=== PATIENT | female | born 1935 | race Caucasian/White ===

== ENCOUNTER → 2017-08-15 09:21 | Outpatient (CLI) | payer MEDICARE, OTHER, SELFPAY ==
[2017-08-15 12:10] LABS: Absolute Lymphocyte Count 2.13 X10^3/ul (0.83-4.51); Absolute Neutrophil Count 5.7 X10^3/uL (2.0-7.7); Basophil# 0.03 X10^3/uL; Basophil% 0.4 % (0-1); Eosinophil# 0.09 X10^3/uL; Eosinophils% 1.1 % (0-5); Hematocrit 38.6 % (37-47); Hemoglobin 11.9 g/dl (12.0-15.0); Lymphocyte # 2.13 X10^3/ul (4.0); Lymphocyte % 24.9 % (19-41); Mean Corp Hgb Conc 30.8 g/gl (32-36); Mean Corpuscular Hgb 26.7 pg (27.0-32.0); Mean Corpuscular Volume 86.7 fL (81-99); Mean Platelet Vol. 9.2 fl (6.2-12.0); Monocyte# 0.64 X10^3/uL; Monocyte% 7.5 % (0-10); Neutrophil # 5.67 X10^3/uL (2.7-7.7); Platelet Count 262 K/mm3 (150-450); RBC Distribution Width CV 13.9 % (11.6-14.6); RBC Distribution Width SD 44.1 fl (35.1-43.9); Red Blood Count 4.45 M/mm3 (4.2-5.4); White Blood Count 8.6 K/mm3 (4.4-11.0)
[2017-08-15 12:11] LABS: POSITIVE COUNT NO; POSITIVE DIFFERENTIAL NO; POSITIVE MORPHOLOGY NO
[2017-08-15 12:13] LABS: Erythrocyte Sedimentation Rate 32 mm/hr (0-30)
[2017-08-16 11:24] LABS: Carcinoembryonic Antigen 2.8 ng/mL (0.0-4.7)
== END ==
PROVIDERS: Family Provider Family Medicine; PCP Family Medicine; Visit Provider Surgery
DX: C18.9 Malignant neoplasm of colon, unspecified (principal)
CPT/HCPCS: 36415; 82378; 85025; 85652

== ENCOUNTER 2017-09-03 05:49 | Day surgery (SDC) | payer MEDICARE, OTHER, SELFPAY ==
--- NOTE | 2017-09-03 | COLBX_PTH ---
PATIENT: MUNDO LOVE LOC: EN U#:[id number] AGE/SX: 81/F ROOM: RE09/03/[address]: Dr. Davi Oneill MD : [id number] BED: DIS: 09/03/2017 SPEC #: [id number] RECD: 09/03/17 11:04 STATUS: AMA MARK #: [id number] JOEY: 09/03/17 00:[address]: Davi Oneill DEPT: SURGICAL PATHOLOGY RECD BY: Tad Duenas ENTERED: 09/03/17 12:47 SP TYPE: COLON BX ISABEL DR: Dr. Rey Oneill III, MD Tissues: A - Transverse colon B - Sigmoid colon biopsy Procedures: Surgery Specimen Level IV HEADER OPERATION: Colonoscopy with biopsy PRE-OP DIAGNOSIS: Follow up sigmoid colectomy, history of colon cancer TISSUE SUBMITTED: A. Cold snare distal transverse, B. Biopsy anastomosis site MICROSCOPIC DIAGNOSIS A. Distal transverse colon, biopsy: Hyperplastic polyp. B. Anastomotic site, biopsy: Granulation with associated acute and chronic inflammation. Fragment of colonic mucosa with mild architectural change. No evidence of malignancy. AM:robert 09/04/17 MICROSCOPIC DESCRIPTION Slides are reviewed. GROSS DESCRIPTION A - Received in fixative is one container labeled with the patient's name and designated distal transverse colon. The specimen consists of one irregular fragment of light kingsley soft tissue that measures 0.4 x 0.2 x 0.1 cm. The specimen is totally submitted in one cassette. B - Received in fixative is one container labeled with the patient's name and designated biopsy, anastomosis site. The specimen consists of multiple irregular fragments of light kingsley soft tissue that in aggregate measure 1 x 0.5 x 0.1 cm. The specimen is totally submitted in one cassette. / SJ:robert 09/03/17 TC:2 CPT: 10409 x2
[2017-09-03 06:33] VITALS: BP 140/65; PULSE 73; RESP 16; TEMP 37.6; O2SAT 97; BMI 25.0
--- NOTE | 2017-09-03 08:04 | PCM.OPRPT ---
Problem List (1) History of colon cancer Status: Acute Report of Operation Date of Procedure: 09/03/17 Pre-Operative Diagnosis: Personal history of distal sigmoid colon cancer Post-Operative Diagnosis: Sessile polyp of the distal transverse colon. Widely patent colorectal anastomosis with granulation tissue Surgery/Procedure Performed:: Colonoscopy with cold snare distal transverse polypectomy. Colonoscopy with cold forcep colorectal anastomotic tissue biopsy Description of Surgical Findings:: Timeout and informed consent was obtained. 81-year-old female was taken to the endoscopy suite. She was placed in the left lateral position. Throughout the procedure she received a total of 75 mg of Demerol and 2.5 mg of Versed is intravenous sedation. Digital rectal exam performed. Normal anal tone. No mass lesions. Flexible colonoscope inserted the rectum advanced through the sigmoid colon foreshortened descending colon transverse colon with some minimal transabdominal pressure is advanced to the cecum. Bowel prep was good there was still some liquid stool that could be readily aspirated. The cecum ileocecal valve area was nicely achieved as the scope was carefully withdrawn from the cecum hepatic flexure. The scope actually was retroflexed within the ascending colon for better visualization. Scope was withdrawn to the transverse colon the distal first colon a small 6 mm sessile benign-appearing polyp was identified. Because of the angulation a good flow photograph could not be achieved however I was able to get a cold snare around this and resected. Specimen was received through the suction. Hemostasis was intact. The scope was further withdrawn through the remainder of the descending colon which was rather straight. No mass lesions. At 10 cm the stapled colorectal anastomosis was identified. Some granulation tissue appear to be present. I did biopsy the granulation tissue and then I did place a hemostatic clip at that spot. There was no tissue that appear to be malignant. That specimen of course sent for analysis. The scope was retroflexed within the rectum anorectal verge inspected minimal hemorrhoidal changes. Scope was placed back in antegrade viewing position. Excess fluid and air was aspirated free the procedure was completed with the patient tolerating it well. Impression Diminutive sessile polyp of the distal transverse colon. Patent colorectal anastomosis albeit with suspected granulation tissue. Pathology on the polyp and suspected granulation tissue pending. The patient will be notified of results as they are available. Follow-up colonoscopy would be recommended in no greater than 3 years. Cc: Dr. Rey Oneill, III and Dr. Bryon Purcell Procedure was initiated at 0740. Scope was inserted 0743. The cecum was reached at 0746.39. The procedure was completed at 0801. Davi Oneill M.D., F.A.C.S. Type of Anesthesia:: IV Sedation
[2017-09-03 08:09] VITALS: BP 140/65; BP 86/46; PULSE 73; RESP 16; TEMP 36.7; O2SAT 96
[2017-09-03 08:14] VITALS: BP 115/55; BP 140/65; PULSE 69; RESP 16; O2SAT 95
[2017-09-03 08:20] VITALS: BP 126/54; BP 140/65; PULSE 68; RESP 16; O2SAT 94
[2017-09-03 08:25] VITALS: BP 124/51; BP 140/65; PULSE 67; RESP 16; TEMP 36.7; O2SAT 94
[2017-09-03 08:30] VITALS: BP 140/65
== END 2017-09-03 08:55 | disposition home or self-care (01) ==
LOC: EN 05:50 → AC 05:51
PROVIDERS: Family Provider Family Medicine; PCP Family Medicine; Visit Provider Surgery
PROC: 0DJD8ZZ Inspection of Lower Intestinal Tract, Via Natural or Artificial Opening Endoscopic (ICD-10-PCS; CPT 45378; principal; 2017-09-03 06:55)
DX: K63.5 Polyp of colon (principal); K63.89 Other specified diseases of intestine; K64.9 Unspecified hemorrhoids; Z85.038 Personal history of other malignant neoplasm of large intestine; Z86.2 Personal history of diseases of the blood and blood-forming organs and certain disorders involving the immune mechanism; Z87.19 Personal history of other diseases of the digestive system; Z78.0 Asymptomatic menopausal state; Z90.49 Acquired absence of other specified parts of digestive tract
CPT/HCPCS: 45380; 45385; 88305; 99152; 99153; J7120

== ENCOUNTER 2019-02-20 08:33 | Emergency (ER) | payer MEDICARE, OTHER, SELFPAY ==
[2019-02-20 08:35] VITALS: BP 169/104; PULSE 85; RESP 16; TEMP 36.1; O2SAT 95; BMI 25.4
--- NOTE | 2019-02-20 08:56 | RAD_ITS ---
STUDY: X-RAY - UNILATERAL RIBS ( RIGHT ) WITH CHEST REASON FOR EXAM: Female, 83 years old. Posterior right-sided rib pain following a fall. TECHNIQUE - RIBS: 2 view(s) of the ribs. TECHNIQUE - CHEST: Single PA view of the chest. COMPARISON: Comparison is made with prior study dated August 17, 2016. FINDINGS - RIBS: Normal visualized ribs without a demonstrated fracture. FINDINGS - CHEST: Hyperinflation. Blunting of both costophrenic angles. Mild linear atelectasis and/or scarring at the lung bases. Normal size heart. Normal mediastinum and manuel. Normal visualized pulmonary arteries. There is atherosclerotic calcification of the aortic arch with tortuosity. There are diffuse degenerative changes of the visualized thoracic spine. Normal visualized ribs, clavicles, and shoulders. There is no demonstrated abnormality of the visualized soft tissue structures of the upper abdomen. RAD/Ribs Uni Min 3V w/PA Chest IMPRESSION: RIBS: Normal x-ray examination of the ribs. CHEST: Blunting of both costophrenic angles with mild linear atelectasis and/or scarring at the lung bases. Electronically Signed: Kermit Singh, at 9:34 EDT , Service support ,
--- NOTE | 2019-02-20 09:12 | ED.VIS.FALL ---
History of Present Illness Informant: Patient, Family Limited: Dementia Occurred: Weeks - 1 week ago Mechanism/Context: Same level fall, Trip, Slip. Negative for: Cannot recall fall, Prodromal, Dizziness, Vertigo, Lightheadedness, Near-syncope Usually ambulates: Without assistance Location: right ribs Quality of Pain: Sharp Current Severity: Moderate Maximum Severity: Severe Worsened by: movement, coughing Relieved by: ibuprofen Associated Symptoms: Negative for: Parasthesias, Weakness, Loss of function, Inability to ambulate, Loss of consciousness, Amnesia Narrative: 83-year-old female presents with right rib pain after mechanical fall that occurred 1 week ago. No prodromal symptoms. She did not hit her head or lose consciousness. She is not on blood thinners. She has had right-sided rib pain worse with movement, palpation and coughing. No fevers. No hemoptysis. No shortness of breath. No back pain. No abdominal pain. No vomiting or diarrhea. No hematuria, melena or hematochezia. Tetanus Immunization: Unknown Prior similar symptoms: No Recent Illness/Hospitalization: No <Frank Holliday - Last Filed: 02/20/19 10:05> <Toni Morin - Last Filed: 02/20/19 13:20> Chief Complaint: Back Past Medical History Prior records reviewed: Yes Past Medical History: - - colectomy Surgical History: colectomy Smoking Status: Never smoker <Frank Holliday - Last Filed: 02/20/19 10:05> <Toni Morin - Last Filed: 02/20/19 13:20> - Allergies and Home Meds Allergies/Adverse Reactions: Allergies piperacillin [From Zosyn] Allergy (Verified 08/16/17 14:44) Rash tazobactam [From Zosyn] Allergy (Verified 08/16/17 14:44) Rash Primary Care Physician: Rey Oneill III, MD [Primary Care Provider] - Review of Systems All systems negative except as indicated General: Denies: Chills, Fever Cardiovascular: Denies: Chest pain Respiratory: Denies: Dyspnea, Cough, Sputum Gastrointestinal: Denies: Abdominal pain Musculoskeletal: Reports: - - right rib pain. Denies: Neck pain, Back pain <Frank Holliday - Last Filed: 02/20/19 10:05> Physical Exam Vital Signs/Narrative: Vital Signs Temp Pulse Resp BP Pulse Ox 02/20/19 08:35 97 F L 85 16 169/104 H 95 Inital Vital Signs reviewed: Yes General: Well nourished, Well developed Head: Normocephalic, Atraumatic Eyes: Perrl, EOMI ENT: TM's clear, No hemotympanum or drainage, No trauma. Negative for: Nasal septal hematoma Neck: Nontender, Full ROM Cardiovascular: Regular rate, Regular rhythm Respiratory: No distress, CTA bilaterally, Chest tenderness - Normal inspection of the chest and ribs. No sign of trauma the skin. Some right lateral and posterior rib pain on palpation mostly around ribs 8 through 10. No step-off deformities are palpated, no crepitus is palpated, there is no CVA tenderness, abdomen is soft and nontender. Abdomen: Soft, Nontender, Nondistended, Normal bowel sounds, No masses Back: Nontender Skin: Normal color, No rash, No Trauma. Negative for: Trauma Neurological: Alert, Oriented x3, Cranial nerves II-XII grossly intact, Normal Strength, Normal Sensation Psychological: Normal affect <Frank Holliday - Last Filed: 02/20/19 10:05> Vital Signs/Narrative: Vital Signs Pulse Resp BP Pulse Ox 02/20/19 10:14 64 15 126/59 H 95 <Toni Morin - Last Filed: 02/20/19 13:20> Diagnostic/Tx/Re-eval Chest X-Ray - ED: 2 View, Read by ED Physician, Read by Radiologist, No Acute Disease - Medical Decision Making Patient was given ibuprofen for pain. A chest x-ray with a right sided rib series showed no acute abnormalities. Patient already has an incentive spirometer at home was instructed on proper use of this. Will be given a short course prescription for [place]. She will continue to use ibuprofen in between doses of hydrocodone. Return precautions to the emergency department were reviewed. Advised to have a close follow-up in the next 2 to 3 days with her family doctor. <Frank Holliday - Last Filed: 02/20/19 10:05> - Medical Decision Making I saw the patient in conjunction with physician sales and marketing assistant. She fell last night and injured her right ribs. No head or neck injuries. No loss of consciousness. She complains of continued pain in the area. Denies shortness of breath or other associated symptoms. Lungs were clear. Skin was normal. No other pertinent findings. X-rays were negative. Patient was treated with pain meds. Use incentive spirometer, she has one at home. Follow-up with primary care for recheck. <Toni Morin - Last Filed: 02/20/19 13:20> ED Disposition <Frank Holliday - Last Filed: 02/20/19 10:05> <Toni Morin - Last Filed: 02/20/19 13:20> - Plan for ED Patient: Disposition: Home or Assisted Living Diagnosis: Contusion of ribs Instructions: Rib Contusion Prescriptions: Hydrocodone Bitart/Apap 5-325 [[place] 5MG-325MG] 1 tab PO Q6H PRN PRN 3 Days #10 tab PRN Reason: Pain Prescription Printed Referrals: Rey Oneill III, MD [Primary Care Provider] -
[2019-02-20] MEDS: Ibuprofen 600 MG Tablet PO (09:20)
[2019-02-20 10:14] VITALS: BP 126/59; PULSE 64; RESP 15; O2SAT 95
== END 2019-02-20 10:21 | disposition home or self-care (01) ==
PROVIDERS: Emergency Provider Physician Assistant Medical; Family Provider Family Medicine; PCP Family Medicine
DX: S20.211A Contusion of right front wall of thorax, initial encounter (principal); W01.0XXA Fall on same level from slipping, tripping and stumbling without subsequent striking against object, initial encounter; Y93.9 Activity, unspecified; Y92.9 Unspecified place or not applicable
CPT/HCPCS: 71101; 99283

== ENCOUNTER 2019-08-23 15:26 | Emergency (ER) | payer OTHER, MEDICARE, SELFPAY ==
[2019-08-23 15:28] VITALS: BP 197/64; PULSE 86; RESP 17; TEMP 36.3; O2SAT 93; BMI 28.3
[2019-08-23 15:35] VITALS: O2SAT 94
[2019-08-23 15:49] VITALS: PULSE 77; RESP 22; O2SAT 95
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
[2019-08-23] MEDS: Morphine 4 MG/ML Syringe IV ×2 (16:02→17:46)
[2019-08-23] MEDS: Ondansetron 4 MG/2 ML Vial IV (16:02)
[2019-08-23] MEDS: 0.9% Normal Saline 1,000 ML 1000 ML IV (16:02)
[2019-08-23] MEDS: Diphth,Pertuss(Acell),Tet Vac 0.5 ML Vial IM (16:02)
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
[2019-08-23 16:13] LABS: Absolute Neutrophil Count 8.5 X10^3/uL (2.0-7.7); Basophil# 0.05 X10^3/uL; Basophil% 0.4 % (0-1); Eosinophil# 0.05 X10^3/uL; Eosinophils% 0.4 % (0-5); Hematocrit 38.5 % (37-47); Hemoglobin 12.1 g/dL (12.0-15.0); Lymphocyte % 24.5 % (19-41); Mean Corp Hgb Conc 31.4 g/dL (32-36); Mean Corpuscular Hgb 27.3 pg (27.0-32.0); Mean Corpuscular Volume 86.7 fL (81-99); Mean Platelet Vol. 9.8 fl (6.2-12.0); Monocyte# 0.77 X10^3/uL; Monocyte% 5.9 % (0-10); NRBC Flagged by Analyzer 0 % (0-5); Neutrophil # 8.52 X10^3/uL (2.7-7.7); Neutrophil % 65.1 % (47-70); Platelet Count 221 K/mm3 (150-450); RBC Distribution Width CV 13.2 % (11.6-14.6); RBC Distribution Width SD 41.5 fl (35.1-43.9); Red Blood Count 4.44 M/mm3 (4.2-5.4); White Blood Count 13.1 K/mm3 (4.4-11.0)
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
[2019-08-23 16:32] LABS: Prothrombin Time (Protime)PT. 13.4 SECONDS (11.7-14.9)
[2019-08-23 16:42] LABS: AST(SGOT) 163 U/L (15-37); Alanine Aminotransfer ALT/SGPT 104 U/L (13-56); Albumin, Serum 3.4 g/dL (3.2-5.0); Alkaline Phosphatase 97 U/L (45-117); Anion Gap 4 (5-15); BUN 22 mg/dL (7-18); BUN/Creat Ratio 22.6 RATIO (10-20); Bilirubin, Direct 0.07 mg/dL (0.00-0.30); Calcium,Total 8.8 mg/dL (8.5-10.1); Chloride 107 mmol/L (98-107); Creatinine, Serum 0.97 mg/dL (0.55-1.02); EST Glomerular Filtration Rate 58 mL/min (>60); Est Glom Filt Rate - Afr Amer 70 mL/min (>60); Estimated Creatinine Clearance 39.28 ml/min; Globulin 4.5 g/dL (2.2-4.2); Glucose 121 mg/dL (74-106); Potassium 3.7 mmol/L (3.5-5.1); Protein, Total 7.9 g/dL (6.4-8.2); Sodium Level 139 mmol/L (136-145)
[2019-08-23 17:42] VITALS: BP 181/65; PULSE 92; RESP 18; O2SAT 94
== END 2019-08-23 18:02 | disposition short-term general hospital (02) ==
PROVIDERS: Emergency Provider Physician Assistant Medical; PCP Family Medicine
DX: S16.1XXA Strain of muscle, fascia and tendon at neck level, initial encounter (principal); R55 Syncope and collapse; S09.90XA Unspecified injury of head, initial encounter; S20.212A Contusion of left front wall of thorax, initial encounter; S32.511A Fracture of superior rim of right pubis, initial encounter for closed fracture; S32.591A Other specified fracture of right pubis, initial encounter for closed fracture; S80.811A Abrasion, right lower leg, initial encounter; S81.811A Laceration without foreign body, right lower leg, initial encounter; Z23 Encounter for immunization; V43.62XA Car passenger injured in collision with other type car in traffic accident, initial encounter; Y93.9 Activity, unspecified; Y92.9 Unspecified place or not applicable; F03.90 Unspecified dementia, unspecified severity, without behavioral disturbance, psychotic disturbance, mood disturbance, and anxiety; Z85.038 Personal history of other malignant neoplasm of large intestine
CPT/HCPCS: 70450; 71260; 72125; 73502; 73560; 74177; 80048; 80076; 85025; 85610; 90715; 93005; 96361; 96374; 96375; 96376; 99285; J7030; Q9967; A4216; J2405

== ENCOUNTER → 2020-09-26 14:33 | Outpatient (CLI) | payer MEDICARE, OTHER, SELFPAY ==
[2020-09-26 14:10] VITALS: BMI 23.4
[2020-09-26 14:55] LABS: Hematocrit 40.4 % (37-47); Hemoglobin 12.6 g/dL (12.0-15.0); Mean Corp Hgb Conc 31.2 g/dL (32-36); Mean Corpuscular Hgb 27.3 pg (27.0-32.0); Mean Corpuscular Volume 87.6 fL (81-99); Mean Platelet Vol. 9.1 fl (6.2-12.0); Platelet Count 258 K/mm3 (150-450); RBC Distribution Width CV 13.3 % (11.6-14.6); RBC Distribution Width SD 42.9 fl (35.1-43.9); Red Blood Count 4.61 M/mm3 (4.2-5.4); White Blood Count 9.4 K/mm3 (4.4-11.0)
[2020-09-26 16:03] LABS: ALB/GLOB Ratio 0.7 RATIO (0.9-2.4); AST(SGOT) 11 U/L (15-37); Alanine Aminotransfer ALT/SGPT 20 U/L (13-56); Albumin, Serum 3.6 g/dL (3.2-5.0); Alkaline Phosphatase 93 U/L (45-117); Anion Gap 6 (5-15); BUN 24 mg/dL (7-18); BUN/Creat Ratio 25.3 RATIO (10-20); Calcium,Total 9.1 mg/dL (8.5-10.1); Chloride 104 mmol/L (98-107); Creatinine, Serum 0.95 mg/dL (0.55-1.02); EST Glomerular Filtration Rate 60 mL/min (>60); Est Glom Filt Rate - Afr Amer 72 mL/min (>60); Globulin 5.4 g/dL (2.2-4.2); Glucose 103 mg/dL (74-106); Potassium 3.6 mmol/L (3.5-5.1); Sodium Level 138 mmol/L (136-145)
[2020-09-26 22:49] LABS: Xtra Tube EP Lab EXTRA TUBE
[2020-09-28 12:18] LABS: Carcinoembryonic Antigen 3.4 ng/mL (0.0-4.7)
== END ==
PROVIDERS: PCP Family Medicine; Visit Provider Surgery
DX: Z85.038 Personal history of other malignant neoplasm of large intestine (principal)
CPT/HCPCS: 36415; 80053; 82378; 85027

== ENCOUNTER 2020-10-04 07:35 | Day surgery (SDC) | payer MEDICARE, OTHER, SELFPAY ==
[2020-09-26 14:10] VITALS: BMI 23.4
--- NOTE | 2020-10-04 | COLBX_PTH ---
PATIENT: MUNDO LOVE LOC: EN U#:[id number] AGE/SX: 84/F ROOM: RE10/04/[address]: Dr. Davi Oneill MD : 1935 BED: DIS: 10/04/2020 SPEC #: [id number] RECD: 10/04/20 12:37 STATUS: AMA REKb #: [id number] JOEY: 10/04/20 00:[address]: Davi Oneill DEPT: SURGICAL PATHOLOGY RECD BY: Parminder Oliver ENTERED: 10/04/20 12:37 SP TYPE: COLON BX OTHR DR: Dr. Rey Oneill III, MD Tissues: COLON BIOPSY Procedures: Surgery Specimen Level IV HEADER OPERATION: Colonoscopy PRE-OP DIAGNOSIS: History colon CA TISSUE SUBMITTED: Hepatic flexure polyp biopsy MICROSCOPIC DIAGNOSIS Hepatic flexure polyp, biopsy: Hyperplastic polyp. SJ:robert 10/05/2020 MICROSCOPIC DESCRIPTION Slides are reviewed. GROSS DESCRIPTION Received in fixative is one container labeled with the patient's name and designated hepatic flexure polyp biopsy. The specimen consists of one irregular fragment of light kingsley soft tissue that measures 0.3 x 0.3 x 0.1 cm. The specimen is totally submitted in one cassette. The specimen is totally submitted in one cassette. / SJ:rg 10/04/20 TC:1 CPT: 91601
--- NOTE | 2020-10-04 09:28 | PCM.HP.BLA ---
History and Physical Date of Admission: 10/04/20 Intake Visit Reasons: CSCOPE Chief Complaint: colonoscopy, hx colon ca 2017 Insurance Agency Manager Required: No Is patient in pain?: No Allergies erythromycin base Allergy (Mild, Verified 09/26/20 14:11) rash piperacillin [From Zosyn] Allergy (Verified 08/23/19 15:28) Rash tazobactam [From Zosyn] Allergy (Verified 08/23/19 15:28) Rash Medications Cholecalciferol (Vitamin D3) [Vitamin D3] 5,000 unit PO DAILY 08/23/19 [History Confirmed 09/26/20] Is last menstrual period known: No Post menopausal: Yes Patient : No PFSH Medical History (Updated 09/26/20 @ 14:09 by Wendy Quiñones) Chronic anemia (Acute) Colon cancer (Resolved) Surgical History S/P colectomy (Acute) S/P colonoscopy (Acute) Family History Mother No problems noted. Social History (Updated 09/26/20 @ 14:[address] Davi Oneill MD) Smoking Status: Never smoker HPI HPI HPI: MUNDO LOVE, is a 84 F who presents to the office today for surgical follow-up of sigmoid colon cancer. The patient presents with her today. He states that although Dr. Rey Oneill III is her primary care physician that she has not seen a physician since her most recent visit with me 3 years ago. She apparently has good appetite. She denies any change of bowel habits however her memory is suspect. My previous notes of 2018 reflect the following HPI: MUNDO LOVE, is a 81 F who presents to the office today for surgical follow-up status post laparoscopic sigmoid colectomy/low anterior resection for colon cancer. On August 16, 2016 I performed a very difficult lab scopic left colectomy for sigmoid colon cancer. Postoperative she has developed a partial small bowel obstruction. She also then presented with thrombosed hemorrhoids. There was concern that he had a microperforation at the anastomosis. She had chronic baseline dementia that worsened. Her overall recovery was slow and challenging. She did not require reoperation for small bowel obstruction nor did she require reoperation for the suspected microperforation at the anastomotic line. She had a significant amount of weight loss. She had persistent diarrhea. She was treated with Lomotil. She now presents back and she has made improvement on absolutely every single account. She is regained her 15 pound weight loss. Her current white blood cell count is normal at 8.6 with a new hemoglobin improved to 11.9 and hematocrit of 38.6. She has a current sed rate of 32 with high normal being 30. Prior to that her sed rate was most recently at 55 demonstrating improvement. As of August 15 her current CEA level was 2.8. The family reminds me that the patient was seen by Dr. Bryon Purcell postoperatively and chemotherapy was recommended but the family members declined. Her most recent procedure was October 03, 2016. At that time the procedure was a flexible sigmoidoscopy examination under anesthesia proctoscopy attempted abscess drainage with internal hemorrhoidectomy and transvaginal ultrasound. I did not see a distinct abscess. The colorectal anastomosis at that point was widely patent. Her primary operation August 16, 2016 was a laparoscopic low anterior resection. I felt that I had a good initial resection but then there appeared to be some discoloration of the distal bowel and so I had to do a re-resection. Her final pathology included a 5 x 3.5 x 2 cm rectosigmoid well-differentiated low-grade adenocarcinoma. Margins were clear. Lymph vascular invasion was not identified. 1 out of 21 lymph nodes were involved. HPI HPI HPI: MUNDO LOVE, is a 84 F who presents to the office today for ROS General General: Yes colon cancer; no weight change, appetite, fatigue, breast cancer or weakness HEENT HEENT: No difficulty swallowing, eye injury, eye surgery, swollen glands or hoarseness Endo Endocrine: No thyroid disease, diabetes mellitus, thyroid cancer, Hair loss, heat intolerance or cold intolerance Musc Musculoskeletal: Yes arthritis; no back problems, rheumatoid arthritis, gout or joint pain Cardio Cardiovascular: No murmur, pacemaker, heart disease, atrial fibrillation, high blood pressure, heart attack, heart stent, palpitations, shortness of breat with exertion or chest pain Psych Psychiatric: No depression, anxiety or hearing voices Resp Respiratory: No shortness of breath, No sleep apnea, No cough, No COPD, No asthma, No emphysema, No wheezing Gastro Gastrointestinal: No abdominal pain, No nausea or vomiting, No diarrhea, No constipation, No blood in stool, No acid reflux, No hemorrhoids, No ulcers, No gallbladder problem, No black,tarry stools Stephen Hematologic: No blood thinners, No blood disorders, No bleeding, No anemia, No blood clots Neuro Neurologic: No weakness Exam Const General: cooperative, comfortable, no acute distress Nutritional Appearance: average body habitus Orientation: alert [facility] Head: normal to inspection Neck Neck: normal visual inspection Resp Effort & Inspection: normal respiratory effort Auscultation: clear to auscultation bilaterally Cardio Rate: regular rate Heart Sounds: no murmurs GI Palpation: soft, no hepatosplenomegaly Auscultation: normal bowel sounds Extrem General: no calf tenderness Psych Affect: normal affect Assessment & Plan Problems 1. History of malignant neoplasm of colon Z85.038 Plan 84-year-old female. She frequently looks towards her to assist her with answers to questions. Otherwise she does not appear to be in acute distress. It became evident in the appointment today that the patient has not been seen by a physician for 3 years since her last appointment with me. She did not seek initial follow-up with Dr. Bryon Purcell hematology oncology either according to the . In any case they are pleased with her current progress. I do recommend that we obtain routine laboratory today including a CEA level. I do propose for her a colonoscopy with possible biopsy or polypectomy as indicated. We would perform that with monitored anesthesia care. She is aware of the technique, benefit, risk, alternatives. I appreciate the ongoing opportunity of assisting with her surgical care. Copy: Dr. Rey Oneill, III Davi Oneill M.D., F.A.C.S. Orders Orders: Colonoscopy Today Comprehensive Metabolic Profil Today Z85.038 CBC-Complete Blood Cnt No Diff Today Z85.038 Carcinoembryonic Antigen Today Z85.038 Coding Level of Care Code Off vis,est,level 2 Diagnoses History of malignant neoplasm of colon Z85.038 Pt history and physical reviewed and no changes Davi Oneill MD
[2020-10-04 09:51] VITALS: BP 115/57; BP 197/78; PULSE 67; RESP 14; TEMP 36.8; O2SAT 97
[2020-10-04 09:55] VITALS: BP 125/55; BP 197/78; PULSE 69; RESP 16; O2SAT 98
--- NOTE | 2020-10-04 09:55 | OP.COLON_ITS ---
Patient Name: Karine Vasquez Procedure Date: 10/04/2020 9:25 AM Date of : 1935 Age: 84 Procedure: Colonoscopy Indications: High risk colon cancer surveillance: Personal history of colon cancer Providers: Davi Oneill MD Referring MD: Rey Oniell Iii Medicines: See the Anesthesia note for documentation of the administered medications Patient Profile: Last Colonoscopy: 2016. Complications: No immediate complications. Procedure: Pre-Anesthesia Assessment: - Prior to the procedure, a History and Physical was performed, and patient medications and allergies were reviewed. The patient's tolerance of previous anesthesia was also reviewed. The risks and benefits of the procedure and the sedation options and risks were discussed with the patient. All questions were answered, and informed consent was obtained. Prior Anticoagulants: The patient has taken no previous anticoagulant or antiplatelet agents. ASA Grade Assessment: II - A patient with mild systemic disease. After reviewing the risks and benefits, the patient was deemed in satisfactory condition to undergo the procedure. After I obtained informed consent, the scope was passed under direct vision. Throughout the procedure, the patient's blood pressure, pulse, and oxygen saturations were monitored continuously. The Colonoscope was introduced through the anus and advanced to the cecum, identified by appendiceal orifice and ileocecal valve. The colonoscopy was performed without difficulty. The patient tolerated the procedure well. The quality of the bowel preparation was good. The ileocecal valve and the appendiceal orifice were photographed. Scope In: 9:38:43 AM Scope Withdrawal Time 0 hours 6 minutes 36 seconds Scope Out: 9:46:45 AM Total Procedure Duration Time 0 hours 8 minutes 2 seconds Findings: Hemorrhoids were found on perianal exam. A 3 mm polyp was found in the hepatic flexure. The polyp was sessile. The polyp was removed with a cold biopsy forceps. Resection and retrieval were complete. There was evidence of a prior end-to-end colo-colonic anastomosis in the distal sigmoid colon. This was patent and was characterized by healthy appearing mucosa. The exam was otherwise without abnormality. Impression: - Hemorrhoids found on perianal exam. - One 3 mm polyp at the hepatic flexure, removed with a cold biopsy forceps. Resected and retrieved. - Patent end-to-end colo-colonic anastomosis, characterized by healthy appearing mucosa. - The examination was otherwise normal. Recommendation: - Discharge patient to home. - Resume previous diet. - Continue present medications. - Repeat colonoscopy in 3 years for surveillance. - Telephone my office for pathology results in 1 week. Procedure Code(s): --- Professional --- 91975, Colonoscopy, flexible; with biopsy, single or multiple Diagnosis Code(s): --- Professional --- Z85.038, Personal history of other malignant neoplasm of large intestine K64.9, Unspecified hemorrhoids D12.3, Benign neoplasm of transverse colon (hepatic flexure or splenic flexure) Z98.0, Intestinal bypass and anastomosis status CPT copyright 2017 [employer]. All rights reserved. The codes documented in this report are preliminary and upon pre coder review may be revised to meet current compliance requirements. Davi Oneill MD 10/04/2020 9:55:35 AM This report has been signed electronically. Number of Addenda: 0 Note Initiated On: 10/04/2020 9:25 AM
--- NOTE | 2020-10-04 09:56 | OP.CCLET_ITS ---
10/04/2020 Rey Oneill [address] [place] [address] Re : Colonoscopy procedure for Karine Vasquez Dear Dr. Oneill This procedure was performed on Sunday, October 04, 2020. My impressions and recommendations are as follows: Impressions : - Hemorrhoids found on perianal exam. - One 3 mm polyp at the hepatic flexure, removed with a cold biopsy forceps. Resected and retrieved. - Patent end-to-end colo-colonic anastomosis, characterized by healthy appearing mucosa. - The examination was otherwise normal. Recommendations : - Discharge patient to home. - Resume previous diet. - Continue present medications. - Repeat colonoscopy in 3 years for surveillance. - Telephone my office for pathology results in 1 week. My findings are described in the full procedure note, which is enclosed. If I can be of further assistance, please feel free to contact me at Doctor phone number(s): Work: . Sincerely, Davi Oneill MD 10/04/2020 9:55:35 AM This report has been signed electronically.
[2020-10-04 10:00] VITALS: BP 148/67; BP 197/78; PULSE 72; RESP 16; O2SAT 98
[2020-10-04 10:05] VITALS: BP 156/62; BP 197/78; PULSE 70; RESP 16; O2SAT 99
[2020-10-04 10:10] VITALS: BP 153/60; BP 197/78; PULSE 63; RESP 16; TEMP 36.8; O2SAT 98
== END 2020-10-04 10:40 ==
LOC: EN 07:37 → AC 07:39
PROVIDERS: PCP Family Medicine; Referring Provider Family Medicine; Visit Provider Surgery
PROC: 0DJD8ZZ Inspection of Lower Intestinal Tract, Via Natural or Artificial Opening Endoscopic (ICD-10-PCS; CPT 45378; principal; 2020-10-04 08:55)
DX: K63.5 Polyp of colon (principal); Z98.0 Intestinal bypass and anastomosis status; K64.9 Unspecified hemorrhoids; Z85.038 Personal history of other malignant neoplasm of large intestine; Z87.19 Personal history of other diseases of the digestive system; Z78.0 Asymptomatic menopausal state; Z90.49 Acquired absence of other specified parts of digestive tract
CPT/HCPCS: 45380; 88305; J7120; J2405

== ENCOUNTER 2024-05-22 10:50 | Emergency (ER) | payer MEDICARE, OTHER, SELFPAY ==
[2024-05-22] VITALS (12 sets, daily range): BP systolic 113–198; BP diastolic 55–92; PULSE 65–82; RESP 17–31; TEMP 36.6; O2SAT 94–99; BMI 27.2
--- NOTE | 2024-05-22 11:16 | EKG12_ITS ---
Test Reason : STROKE TEAM Blood Pressure : */* mmHG Vent. Rate : 68 BPM Atrial Rate : 68 BPM P-R Int : 186 ms QRS Dur : 70 ms QT Int : 356 ms P-R-T Axes : 67 -1 46 degrees QTcB Int : 378 ms Normal sinus rhythm Minimal voltage criteria for LVH, may be normal variant ( R in aVL ) Nonspecific T wave abnormality Abnormal ECG Confirmed by GUME PERSAUD, CHRISTA ([id number]), sound editor CHRISTIAN العلي ([id number]) on 05/27/2024 1:31:58 P M Referred By: Confirmed By: CHRISTA DUNAWAY MD
--- NOTE | 2024-05-22 11:17 | CT_ITS ---
STUDY: CT CERVICAL SPINE WITHOUT CONTRAST REASON FOR EXAM: Female, 88 years old. Cervical pain following fall. RADIATION DOSAGE (If Supplied By Facility): CTDIvol = ( 15.12 ) mGy, DLP = ( 335.08 ) mGycm TECHNIQUE: High resolution transaxial imaging was performed without contrast material. Sagittal and coronal images were reconstructed. Individualized dose optimization techniques were used for this CT. COMPARISON: Comparison is made with prior study August 23, 2019. FINDINGS: Normal craniovertebral junction. There are degenerative changes of the anterior atlantoaxial articulation. Normal odontoid process. Normal cervical lordosis. Normal vertebral bodies and posterior osseous elements. 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 No significant stenosis seen. C3-4: Facet joint osteoarthritis and hypertrophy more prominent on the left side. No significant stenosis seen. C4-5: Marked degree of disc space narrowing. Spondylosis. Uncovertebral arthrosis and mild bilateral neural foraminal stenosis. C5-6: Marked degree of disc space narrowing. Uncovertebral arthrosis. Lateral neural foraminal stenosis worse on the right side. C6-7: Moderate degree of disc space narrowing. Facet joint osteoarthritis and hypertrophy. C7-T1: Normal endplates. Normal disc height and morphology. Normal central canal and intervertebral neuroforamina. Opacification of the right sphenoid sinus. CT/Spine Cervical without Contras IMPRESSION: Multilevel degenerative changes, as described above. Electronically Signed: Kermit Singh MD at 12:06 EST ,
[2024-05-22 11:22] LABS: Bedside Glucose 210 mg/dL (74-106)
[2024-05-22 11:23] LABS: Absolute Lymphocyte Count 1.44 X10^3/uL (0.83-4.51); Basophil# 0.05 X10^3/uL; Basophil% 0.3 % (0-1); Eosinophil# 0.01 X10^3/uL; Eosinophils% 0.1 % (0-5); Hematocrit 36.5 % (37-47); Hemoglobin 11.9 g/dL (12.0-15.0); Lymphocyte # 1.44 X10^3/ul (0.83-4.51); Lymphocyte % 9.4 % (19-41); Mean Corp Hgb Conc 32.6 g/dL (32-36); Mean Corpuscular Hgb 27.4 pg (27.0-32.0); Mean Corpuscular Volume 83.9 fL (81-99); Mean Platelet Vol. 9.1 fl (6.2-12.0); Monocyte# 0.67 X10^3/uL; Monocyte% 4.4 % (0-10); NRBC Flagged by Analyzer 0 % (0-5); Neutrophil # 12.97 X10^3/uL (2.7-7.7); Platelet Count 255 K/mm3 (150-450); RBC Distribution Width CV 14.2 % (11.6-14.6); RBC Distribution Width SD 43.5 fl (35.1-43.9); Red Blood Count 4.35 M/mm3 (4.2-5.4); White Blood Count 15.3 K/mm3 (4.4-11.0)
--- NOTE | 2024-05-22 11:32 | EDS_ITS ---
HPI <CLOVIS Calloway - Last Filed: 05/22/24 12:07> History of Present Illness Chief Complaint: Neuro S/Sx Narrative Narrative: Patient is an 88-year-old female with history of colon cancer who does not see a primary care doctor. Patient does have dementia, lives with her . This morning at 7:30 AM, the patient was found on the carpeted hallway floor. The patient had some right sided weakness, unsure of when this started. Patient was then placed on a stool in the bathroom and then fell off the stool landing on her right side. Patient does have a small laceration to her scalp as well as above her right eyebrow. The family also states that she is more confused than normal, and she seems to be weak and not normal on her right side. Denies any recent infectious processes, patient usually is ambulatory and lives independently. [facility] <CLOVIS Calloway - Last Filed: 05/22/24 12:07> [facility] Medical History (Updated 05/22/24 @ 12:07 by CLOVIS Calloway) Colon cancer Chronic anemia Home Medications ?Medication ?Instructions ?Recorded ?Last Taken ?Type NK 05/22/24 Unknown History Allergy/AdvReac Type Severity Reaction Status Date / Time erythromycin base Allergy Mild rash Verified 09/30/20 11:08 piperacillin (From Zosyn) Allergy Rash Verified 09/30/20 11:08 tazobactam (From Zosyn) Allergy Rash Verified 09/30/20 11:08 Family History Mother No problems noted. Surgical History S/P colonoscopy S/P colectomy Social History (Updated 09/26/20 @ 14:[address] Davi Oneill MD) Smoking Status: Never smoker ROS <CLOVIS Calloway - Last Filed: 05/22/24 12:07> ROS ED ROS Narrative Constitutional: Negative for fever, chills, weight loss. Positive for weakness, worsening confusion Eyes: Negative for vision loss, vision change, double vision ENT: Negative for any sore throat, ear pain, congestion Cardiovascular: Negative for any chest pain, tightness, palpitations Respiratory: Negative for any cough, sputum production, hemoptysis, dyspnea, dyspnea on exertion, orthopnea Gastrointestinal: Negative for any abdominal pain, nausea, vomiting, diarrhea, constipation, blood in stool, blood in vomit : Negative for any urinary frequency, dysuria, retention, blood in urine Muscle skeletal: Negative for any neck pain, back pain Neurological: Negative for any headache, syncope. Positive for dizziness, weakness to the right arm, right leg. Skin: Negative for any rashes, itching, abrasions. Positive for laceration of the right scalp, above the right eyebrow Psychiatric: Negative for any depression, anxiety, stress, suicidal ideation, homicidal ideation Hematologic: Negative for any excessive bruising, easy bleeding EXAM <CLOVIS Calloway - Last Filed: 05/22/24 12:07> Physical Exam Narrative Exam Narrative: Vital signs reviewed. HEET: Head normocephalic atraumatic, TMs clear bilaterally. Posterior pharynx is clear, moist mucous membranes. Nares clear bilaterally. Neck: Supple with no lymphadenopathy or tenderness. No signs of meningismus. Cardiac: Regular rate and rhythm no murmurs gallops or rubs, equal peripheral pulses bilaterally. Respiratory: Lungs clear to auscultation bilaterally. Positive for left-sided chest tenderness. No crepitus noted. Abdomen: Soft, nontender, nondistended. No abdominal bruit or pulsatile masses. No hepatosplenomegaly Extremities: No peripheral edema, no signs of gross trauma or deformity. Active full range of motion of all extremities. Neuro: NIH stroke scale total of 8 for right sided drift to the upper and lower extremity. As well as altered mental status Skin: Clean dry and intact with no rash, purpura, petechiae, vesicles or pustules. Backs/flank: No CVA tenderness, no midline spinal tenderness, no deformity. Psych: Normal mood and affect. No SI, HI or acute psychosis. Const Vital Signs: 05/22/24 10:50 05/22/24 11:36 05/22/24 11:41 Temperature 97.8 F Temperature Source Temporal Pulse Rate 80 Respiratory Rate 26 H Blood Pressure 176/92 H Blood Pressure Mean 120 Pulse Ox 97 Oxygen Delivery Method Room Air Room Air Room Air 05/22/24 11:41 05/22/24 11:56 05/22/24 12:06 Temperature Temperature Source Pulse Rate 82 67 69 Respiratory Rate 22 H 17 31 H Blood Pressure 198/83 H 140/67 H 149/74 H Blood Pressure Mean 121 91 99 Pulse Ox 96 95 94 Oxygen Delivery Method Room Air Room Air Room Air Positive cachectic General Appearance ED: cachectic Nutritional Appearance: cachectic <Dr. Nghia Yusuf MD - Last Filed: 05/22/24 12:08> Physical Exam Const Vital Signs: 05/22/24 10:50 05/22/24 11:36 05/22/24 11:41 Temperature 97.8 F Temperature Source Temporal Pulse Rate 80 Respiratory Rate 26 H Blood Pressure 176/92 H Blood Pressure Mean 120 Pulse Ox 97 Oxygen Delivery Method Room Air Room Air Room Air 05/22/24 11:41 05/22/24 11:56 05/22/24 12:06 Temperature Temperature Source Pulse Rate 82 67 69 Respiratory Rate 22 H 17 31 H Blood Pressure 198/83 H 140/67 H 149/74 H Blood Pressure Mean 121 91 99 Pulse Ox 96 95 94 Oxygen Delivery Method Room Air Room Air Room Air NIHSS NIHSS Initial: 1a Level of Consciousness: 0 1b LOC Questions (Score 2 if aphasic/stupor): 2 1c LOC Commands (Only score 1st attempt): 0 2 Best Gaze (If aphasic, use reflexive mvmts.): 0 3 Visual: 0 4 Facial Palsy: 0 5 Motor Arm Right (UN = amputation/fusion): 1 5 Motor Arm Left: 0 6 Motor Leg Right: 2 6 Motor Leg Left: 0 7 Limb ataxia (Only + if out of proportion): 0 8 Sensory (Aphasia/stupor=0 or 1, coma=2): 1 9 Best Language: 0 10 Dysarthria (mute, coma=2, intubated=UN): 1 11 Extinction and Inattention (only scored if +): 1 Total Score: 8 MDM <CLOVIS Calloway - Last Filed: 05/22/24 12:07> MDM Lab Data Labs: Laboratory Results - last 24 hr 05/22/24 05/22/24 10:56 11:00 WBC 15.3 H RBC 4.35 Hgb 11.9 L Hct 36.5 L MCV 83.9 MCH 27.4 MCHC 32.6 RDW Std Deviation 43.5 RDW Coeff of Edgar 14.2 Plt Count 255 MPV 9.1 Immature Gran % (Auto) 0.800 Neut % (Auto) 85.0 H Lymph % (Auto) 9.4 L Summers % (Auto) 4.4 Eos % (Auto) 0.1 Baso % (Auto) 0.3 Absolute Neuts (auto) 13.0 H Absolute Lymphs (auto) 1.44 Nucleated RBC % 0 POC Glucose 210 H Radiography Diagnostic Testing: Clinical Impression(s) from Imaging Studies Brain CT 05/22/24 11:36 IMPRESSION: 3.2 cm x 3.6 cm acute hemorrhage in the posterior left parietal occipital lobes with surrounding edema and mass effect. N.B. : The above Results were Read Back by Kermit Singh MD to Nghia Yusuf and understanding confirmed on 05/22/2024 11:59:38 (ET). Electronically Signed: Kermit Singh MD at 12:00 EST Reading Location ID and State: [address] [place] [address] , Service support , Treatment and Re-Evaluation :: Differential diagnosis includes however is not limited to: CVA, TIA, hemorrhagic stroke, UTI, skull fracture, traumatic bleeding, hypertensive urgency Patient is hypertensive with a blood pressure 176/92, patient alert and orient x 1-2 it is difficult secondary to her dementia. Patient's neurologic Vern was difficult however patient's NIH stroke scale of 8.Patient CT scan of the brain shows a 3.2 cm x 3.6 cm acute hemorrhage in the posterior left parietal occipital lobes with surrounding edema and mass effect. This could be secondary to the elevated blood pressure. Patient CBC does show leukocytosis with a blood count of 15.3. Patient will receive labetalol to control her blood pressure. The stroke alert was called by ER attending. Multiple calls were made to [facility], patient will be transferred there. Family members were made aware. Patient's airway remains patent, she remains alert. She is still having right sided deficits. <Dr. Nghia Yusuf MD - Last Filed: 05/22/24 12:08> [facility] Narrative Medical decision making narrative: I have personally performed a face to face assessment of the patient and have reviewed the JULI Note. I performed a substantive portion of the visit including all aspects of the following. My goodman findings include: History is first seen this morning after fall, family noticed that she was weak on the right side. When she went to bed last night she was normal, the last known well was 1830 according to the . Family member saying that her right-sided weakness is improved now compared with what it was before. He states that she has always had high blood pressure but is not on any medication for it, and it was 210 when it was first measured here which he says is way higher than it usually is. History is very limited from the patient due to pre- existing dementia. She does not know the month and family states that is her baseline, and her speech is at baseline as well, which is a little slurred. Exam is keenly alert, airway intact, able to follow commands, see NIH. 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 She is not a thrombolytic candidate. She was sent to CT immediately and highway traffic control technician recognized there is a hemorrhage, I reviewed the images it appears to be a hypertensive bleed not a traumatic. Therefore the CTA is canceled and hemorrhagic order set is placed and nurses are placing a second IV for emergent antihypertensive administration. Spoke with Dr. Duval neurosurgery. I spoke with the transfer center, patient is excepted to [facility] by the ED physician on their behalf Dr. Bingham. Spoke with family multiple family members. Patient is on no antiplatelet or anticoagulant medications. We are attempting to get helicopter EMS here as soon as possible to transport the patient. Her airway is intact, she is at baseline mental status. At this time I do not think she needs to be intubated. Available labs are reviewed by myself. Other additions or changes: [None] Lab Data Labs: Laboratory Results - last 24 hr 05/22/24 05/22/24 10:56 11:00 WBC 15.3 H RBC 4.35 Hgb 11.9 L Hct 36.5 L MCV 83.9 MCH 27.4 MCHC 32.6 RDW Std Deviation 43.5 RDW Coeff of Edgar 14.2 Plt Count 255 MPV 9.1 Immature Gran % (Auto) 0.800 Neut % (Auto) 85.0 H Lymph % (Auto) 9.4 L Summers % (Auto) 4.4 Eos % (Auto) 0.1 Baso % (Auto) 0.3 Absolute Neuts (auto) 13.0 H Absolute Lymphs (auto) 1.44 Nucleated RBC % 0 POC Glucose 210 H Radiography Diagnostic Testing: Clinical Impression(s) from Imaging Studies Brain CT 05/22/24 11:36 IMPRESSION: 3.2 cm x 3.6 cm acute hemorrhage in the posterior left parietal occipital lobes with surrounding edema and mass effect. N.B. : The above Results were Read Back by Kermit Singh MD to Nghia Yusuf and understanding confirmed on 05/22/2024 11:59:38 (ET). Electronically Signed: Kermit Singh MD at 12:00 EST , Rhythm Strip Rhythm Strip: Sinus Rhythm Rate: 68 Ectopy: None EKG Initial EKG: Attestation: I personally reviewed and interpreted this EKG as follows: Interpretation: Sinus Rhythm, No Acute Injury Pattern and Non-Specific ST Changes Management Discussion w/another healthcare provider: Parts Picker (Dr. Duval, [facility] neurosurgery) and Radiologist <Dr. Nghia Yusuf MD - Last Filed: 05/22/24 12:08> Critical Care Time Critical Care Time: Yes Critical care time (excluding procedures): 30-74 minutes (38 min), Including time spent:, Discussing w/Patient &/or Family/Director Transportation, Discussing w/Consultants, Arranging Admission or Transfer and Performing Direct Patient Care at Bedside Discharge Plan Triage Chief Complaint: Neuro S/Sx ED Midlevel Provider: Bryon Dominguez ED Provider: Nghia Yusuf Dx/Rx/DC Orders Clinical Impression: Acute intracerebral hemorrhage, Hypertensive emergency, Acute right hemiparesis, Dementia Prescriptions: No Action NK Primary Care Provider: Care Physician,No Primary Referrals: NOT,DEFINED [Non-Staff] - Print Language: [place] Islander Disposition Disposition: Acute Care Hospital Discharge Location: [facility] <Dr. Nghia Yusuf MD - Last Filed: 05/22/24 12:08> Stroke Documentation Questions Stroke Team Activated: Yes IV Thrombolytic Administered: No (not indicated due to timing)
--- NOTE | 2024-05-22 11:36 | CT_ITS ---
STUDY: CT HEAD STROKE PROTOCOL W/O CONTRAST INJECTION REASON FOR EXAM: Female, 88 years old. Neuro deficit, acute, stroke suspected RADIATION DOSAGE (If Supplied By Facility): CTDIvol = ( 44.99 ) mGy, DLP = ( 779.24 ) mGycm TECHNIQUE: Transaxial CT imaging of the brain was performed without administration of intravenous contrast material. Individualized dose optimization techniques were used for this CT. COMPARISON: No relevant priors. FINDINGS: Normal soft tissue structures. Normal calvarium. There is mild cerebral atrophy with widening of the extra-axial spaces and ventricular dilatation. There are areas of decreased attenuation within the white matter tracts of the supratentorial brain, consistent with microvascular disease changes. Normal basal ganglia and thalami. Normal brainstem. Normal cerebellum. There is evidence of a 3.2 cm x 3.6 cm acute hemorrhage in the posterior left parietal occipital lobes with surrounding edema and mass effect. No shift of the midline. There are no findings of an acute ischemic infarction. Atherosclerotic calcification of the cavernous portions of the internal carotid arteries bilaterally. Partial opacification of the right sphenoid sinus and left maxillary sinus. CT/STROKE Brain/Head without Cont IMPRESSION: 3.2 cm x 3.6 cm acute hemorrhage in the posterior left parietal occipital lobes with surrounding edema and mass effect. N.B. : The above Results were Read Back by Kermit Singh MD to Nghia Yusuf and understanding confirmed on 05/22/2024 11:59:38 (ET). Electronically Signed: Kermit Singh MD at 12:00 EST ,
[2024-05-22] MEDS: Labetalol (Prefilled) 20 MG/4 ML Vial IV ×2 (11:52→12:10)
[2024-05-22 12:14] LABS: Prothrombin Time (Protime)PT. 13.4 SECONDS (11.7-14.9)
[2024-05-22 12:15] LABS: Partial Thromboplast Time 24.4 Seconds (24.1-36.2)
--- NOTE | 2024-05-22 12:21 | CM.ED ---
Social Work Reason for visit: Stroke alert Patient was brought in by EMS after experiencing two falls at home. Patients , son and daughter were at bedside. was tearful and being supported by his children. Patient to be transferred to [facility], son lives by [facility] and will be driving patients . Son asked for information on a primary care physician that was recommended to him from another physician, SW printed primary care information along with contact number and gave to son. Supportive listening and emotional support provided. No further needs identified at this time. Evelin Ware, MERCANTILE AGENT, CRIMINAL INTELLIGENCE ANALYST
[2024-05-22] MEDS: Nicardipine HCl-0.9% Sod Chlor 20 MG/200 ML IV.SOLN 50 MG CONT INF (12:31)
[2024-05-22 12:49] LABS: ALB/GLOB Ratio 0.6 RATIO (0.9-2.4); AST(SGOT) 19 U/L (15-37); Alanine Aminotransfer ALT/SGPT 52 U/L (13-56); Albumin, Serum 3.3 g/dL (3.2-5.0); Alkaline Phosphatase 103 U/L (45-117); Anion Gap 8 (5-15); BUN 19 mg/dL (7-18); BUN/Creat Ratio 17.4 RATIO (10-20); Calcium,Total 9.2 mg/dL (8.5-10.1); Chloride 103 mmol/L (98-107); Creatinine, Serum 1.09 mg/dL (0.55-1.02); EST Glomerular Filtration Rate 51 mL/min (>60); Est Glom Filt Rate - Afr Amer 61 mL/min (>60); Estimated Creatinine Clearance 33.37 ml/min; Globulin 5.4 g/dL (2.2-4.2); Glucose 204 mg/dL (74-106); Potassium 3.3 mmol/L (3.5-5.1); Protein, Total 8.7 g/dL (6.4-8.2); Sodium Level 136 mmol/L (136-145); Troponin-I HS 142 pg/mL (3.0-54.0)
--- NOTE | 2024-05-22 13:13 | ED.RN ---
pt report called to ARAM Saeed at [facility]
== END 2024-05-22 13:00 | disposition short-term general hospital (02) ==
PROVIDERS: Nurse Practitioner; Emergency Provider Emergency Medicine; Visit Provider Emergency Medicine
DX: I61.9 Nontraumatic intracerebral hemorrhage, unspecified (principal); G81.91 Hemiplegia, unspecified affecting right dominant side; F03.90 Unspecified dementia, unspecified severity, without behavioral disturbance, psychotic disturbance, mood disturbance, and anxiety; I16.1 Hypertensive emergency; Z85.038 Personal history of other malignant neoplasm of large intestine; Z90.49 Acquired absence of other specified parts of digestive tract
CPT/HCPCS: 70450; 72125; 80053; 82962; 84484; 85025; 85610; 85730; 93005; 96365; 96375; 99285; A4216

== ENCOUNTER 2024-05-28 16:34 | Inpatient (IN) | payer MEDICARE, OTHER, SELFPAY ==
[2024-05-28 17:07] VITALS: BMI 23.6
[2024-05-28 17:14] VITALS: BP 143/47; PULSE 68; RESP 18; TEMP 36.9; O2SAT 95
--- NOTE | 2024-05-28 18:05 | HP.PCM_ITS ---
HPI - General General Date of Admission: 05/28/24 Date of Service: 05/28/24 Chief Complaint: Post stroke debility HPI Narrative MUNDO LOVE, is a 88 YO F with a hx of severe dementia, HTN, hyperlipidemia, colon cancer and chronic anemia who presented to the emergency department at [facility] on 05/22/2024 with complaints of right- sided weakness. Her found her on the floor mat morning. He got her up and put her on the toilet and she fell off. Family stated she was more confused than normal but she has been confused for several years and has progressive dementia. A stat noncontrast CT brain showed a 3.2 cm x 3.6 cm acute hemorrhage in the posterior left parietal occipital lobe with surrounding edema and mass effect. She was hypertensive with a blood pressure of 176/92. NIHSS score was 8. She was treated with labetalol and the ER physician was in contact with tele-neurology at [facility]. She was transferred to [facility] for definitive treatment. She was admitted to the neurointensive care unit and was on a nicardipine drip which was weaned the following day. A repeat CT head showed stable left parietal occipital intraparenchymal hemorrhage. CTA showed no large vessel occlusion or spot sign. Neurosurgery was consulted and did not feel surgery was indicated. Workup revealed a urinary tract infection and she was given antibiotics. MRI showed no underlying mass with expected sequela I of a left parieto-occipital bleed. It was consistent with cerebral amyloid angiosis. Transthoracic echocardiogram showed a 60 to 65% ejection fraction with no significant valvular heart disease. LDL was uncontrolled at 146 and the hemoglobin A1c was 6.2. While at [facility] she was seen by PT/OT/ST and transferred to a long term facility was recommended at discharge from [facility]. She was admitted to the acute rehab unit at [facility] on 05/28/2024 for 3 hours of therapy daily to restore function/independence at or near her level prior to the hemorrhagic CVA. Most of the hx was obtained from her dtr Ranjana. She lives in a [place] home with her . She has been independent with ADL's at home. She has not been incontinent of urine or stool prior to the stroke. She walks in the house without an AD but uses a walker when outside. She wears glasses and her is going to bring them in. She has not seen her PCP, Dr. Rey Oneill, since he retired 2 years ago. Patient was on no scheduled medication at the time of presentation to the emergency department. She has never seen a neurologist to Ranjana's knowledge. Her memory has been declining for years per dtr. She could not tell me how many children she has and the only name she knows is Ranjana. She could not tell me her son's name. She did tell me Ranjana's dtr's name but, she thought she was her dtr and not her granddaughter. [facility] Medical History Subarachnoid hemorrhage Hyperlipidemia HTN (hypertension) Colon cancer Chronic anemia Home Medications ?Medication ?Instructions ?Recorded ?Last Taken ?Type atorvastatin 40 mg tablet 40 mg PO QHS Cholestrol 05/28/24 05/27/24 History carvedilol 12.5 mg tablet (Coreg) 12.5 mg PO BID BP 05/28/24 05/28/24 History losartan 25 mg tablet (Cozaar) 25 mg PO DAILY BP 05/28/24 Unknown History ondansetron 4 mg disintegrating 4 mg PO Q6H PRN nausea and vomiting 05/28/24 Unknown History tablet Allergy/AdvReac Type Severity Reaction Status Date / Time erythromycin base Allergy Mild rash Verified 09/30/20 11:08 piperacillin (From Zosyn) Allergy Rash Verified 09/30/20 11:08 tazobactam (From Zosyn) Allergy Rash Verified 09/30/20 11:08 Family History Mother No problems noted. Surgical History S/P colonoscopy S/P colectomy Social History Smoking Status: Never smoker ROS Review of Systems ROS Unobtainable: due to mental condition, due to mental status and other Details: Patient has severe dementia (required Haldol at [facility]) for behavioral disturbance. Dementia has been getting progressively worse over the past several years. The stroke has exacerbated the cognitive decline. She does not appear to be in any distress. She is not tachypneic and does not appear to be in pain. She is perseverating on having to have a BM and nursing has had her on the bedpan a few times with no results. She does not understand how to use the call light and is yelling out Help me frequently when no one is in the room. She can lie flat in bed without any respiratory distress. She is restless. Not sleeping well at night per her dtr. she is currently pleasant. She answers my questions by asking me a question. When I ask how are you felling she responds, you tell me. Vital Signs Vital Signs Vital Signs: 05/28/24 17:14 Temperature 98.5 F Temperature Source Oral Pulse Rate 68 Respiratory Rate 18 Blood Pressure 143/47 H Blood Pressure Mean 79 Blood Pressure Source Monitor Blood Pressure Position Sitting Blood Pressure Location Left Arm Pulse Ox 95 Oxygen Delivery Method Room Air Weight Weight: 125 lb Body Mass Index (BMI) 23.6 Indicators for Scoring Admitted with or Primary Diagnosis of CVA/Stroke: Yes Hx of CVA/Stroke: Yes Modified Catherine Score MRS Score at time of Evaluation: 5-Severe disability NIHSS NIHSS 1a. Level of Consciousness: Alert; keenly responsive 1b. LOC Questions: Answers one question correctly. 1c. LOC Commands: Performs both tasks correctly. 2. Best Gaze: Normal 3. Visual: No visual loss 4. Facial Palsy: Minor paralysis (flattened nasolabial fold, asymmetry on smiling) 5a. Left Arm: No drift; arm holds 90 (or 45) degrees for full 10 seconds 5b. Right Arm: No effort against gravity; arm falls 6a. Left Leg: No drift; leg holds 30-degree position for full 5 seconds 6b. Right Leg: No effort against gravity; leg falls to bed immediately 7. Limb Ataxia: Absent 8. Sensory: Severe to total sensory loss; (Right side) 9. Best Language: [id number] aphasia; 10. Dysarthria: [id number]-[id number] dysarthria; 11. Extinction and Inattention: Visual, tactile, auditory, spatial, or personal inattention Total: 13 Stroke Questions Stroke Team Activated: No Physical Exam Const alert Constitutional Narrative: Very confused. Was able to tell me her name and eventually told me that she was at [facility]. Does not know why she is here. When I ask her a question she can not answer she looks to her daughter Ranjana to answer for her. HEENT normocephalic and head/scalp atraumatic HEENT Narrative: Mucous membranes are dry. No evidence of thrush. Tongue protrudes on the midline. Eyes PERRL, EOMs intact bilaterally, conjunctivae normal and no scleral icterus Eyes Narrative: No discharge from the eyes and no mattering of the eyelashes. Neck supple and no carotid bruits Chest Chest: symmetrical chest wall rise Resp Resp Narrative: Not tachypneic, no respiratory distress. Lungs are clear to auscultation anterior and lateral. She has a rare brief nonproductive cough. No crackles and no wheezes. Able to lie flat in bed with no respiratory distress. Effort and Inspection: able to speak in complete sentences Cardio regular rate, regular rhythm, no murmurs, no rub and no gallops GI normal to inspection, nondistended, normoactive bowel sounds, soft to palpation and non-tender GI Narrative: No guarding with palpation Extremity no calf tenderness and no pedal edema Extremity Narrative: Very dry skin over the extremities. Skin no jaundice and no mottling Skin Narrative: Has many senile keratoses over her body. No rashes. No wounds. Neuro Neuro Narrative: She is alert and oriented to person. She eventually was able to tell me that she is at [facility]. She could not tell me her name but she knew it was May. She has a mild right facial droop. Tongue protrudes on the midline. Pupils are equal round and reactive to light. Extraocular muscles are intact. No visual field cuts. Able to shrug both shoulders but the right shoulder is weaker.. She was unable to overcome gravity with the right arm or the right leg and they fell immediately to the bed. She has severe right side neglect. She has no drift with the left upper extremity or the left lower extremity. No ataxia with the left side, could not test the right because she cannot overcome gravity. Results Lab / Micro Data 05/29/24 04:06 05/29/24 04:06 Assessment & Plan Assessment/Plan (1) Physical debility: (2) Acute intracerebral hemorrhage: (3) Cerebral amyloid angiopathy: (4) Ronny-neglect of right side: (5) Acute right hemiparesis: (6) HTN (hypertension): QUALIFIERS: Hypertension type: primary hypertension Qualified Code(s): I10 - Essential (primary) hypertension (7) Hyperlipidemia: QUALIFIERS: Hyperlipidemia type: unspecified Qualified Code(s): E 78.5 - Hyperlipidemia, unspecified (8) Dementia: QUALIFIERS: Dementia behavioral or psychological symptom: with agitation Dementia severity: severe Dementia type: unspecified type Qualified Code(s): F03.C11 - Unspecified dementia, severe, with agitation (9) History of colon cancer: PLAN: Plan PLAN PT for gait stability OT for ADL's ST for evaluation Analgesics as needed Bowel protocol Fall precautions Assess for Anxiety/Depression GI prophylaxis -not needed at this time DVT prophylaxis with SHAN hose, SCDs and mobilization. Anticoagulation not recommended due to intracerebral parenchymal hemorrhage and cerebral amyloid angiopathy Follow up with PCP (she does not have a PCP so will give a list of local PCP's accepting pt) and neurology following DC from [facility] AM lab including CMP, CBC, Mag and Phos - ordered. Pt has severe dementia which has be progressive over several years. This will impair her ability to progress with therapy because she can not retain information. Has not been sleeping per dtr. Received Haldol at the last hospital. Would prefer to use Risperdal if sedation is needed because it is less sedating. Will see how she does not. Currently she is perseverating on having a BM and is calling out every 20-30 minutes to have a BM......she has been placed on the bedpan several times with no results. Charges/Coding Visit Charges Inpatient E&M: 47423 Init Hosp L3
[2024-05-28 18:19] VITALS: BP 143/47; PULSE 68; RESP 18; TEMP 36.9; O2SAT 95
[2024-05-28] MEDS: Carvedilol 12.5 MG Tablet PO (22:29)
[2024-05-28] MEDS: Senna/Docusate Sodium 1 Tablet 2 TABLET PO (22:30)
[2024-05-28] MEDS: Atorvastatin Calcium 40 MG Tablet PO (22:30)
[2024-05-28 22:33] LABS: Mucous, Urine 0 SEEN /hpf (<or=2+); Red Blood Cells-Urine 0 SEEN /hpf (0-5)
[2024-05-28 22:35] LABS: Color, Urine Yellow (Yellow); Glucose, Dipstick Normal (Normal); Ketone-Dipstick Negative (Negative); Leukocyte Esterase-Dipstick 100 /ul (Negative); Nitrite-Dipstick Negative (Negative); Occult Blood-Urine Negative /ul (Negative); Protein-Dipstick 30 mg/dl (Negative); Specific Gravity, Urine 1.015 (1.002-1.030); Urine Bilirubin Dipstick Negative (Negative); Urine Clarity Clear (Clear); Urine Urobilinogen Normal (Normal)
[2024-05-28 22:42] LABS: Urine Sodium 25 mmol/L (Not Establ.)
[2024-05-28 23:01] LABS: Bacteria RARE /hpf (None Seen); Fine Granular Cast- Urine 0-5 SEEN /lpf (0-5); Squamous Epithelial Cells - UA 5-10 SEEN /hpf (5-10); Transitional Epithelial - Ur 5-10 SEEN /hpf (0-5); White Blood Cells 5-10 SEEN /hpf (0-5)
[2024-05-28 23:03] LABS: Osmolality, Urine 628 mOsm/KG
[2024-05-29 05:21] LABS: Hematocrit 29.5 % (37-47); Hemoglobin 9.3 g/dL (12.0-15.0); Mean Corp Hgb Conc 31.5 g/dL (32-36); Mean Corpuscular Hgb 27.2 pg (27.0-32.0); Mean Corpuscular Volume 86.3 fL (81-99); Mean Platelet Vol. 10.2 fl (6.2-12.0); Platelet Count 224 K/mm3 (150-450); RBC Distribution Width CV 14.2 % (11.6-14.6); RBC Distribution Width SD 44.7 fl (35.1-43.9); Red Blood Count 3.42 M/mm3 (4.2-5.4); White Blood Count 9.8 K/mm3 (4.4-11.0)
[2024-05-29 05:55] LABS: ALB/GLOB Ratio 0.5 RATIO (0.9-2.4); AST(SGOT) 32 U/L (15-37); Alanine Aminotransfer ALT/SGPT 44 U/L (13-56); Albumin, Serum 2.4 g/dL (3.2-5.0); Alkaline Phosphatase 89 U/L (45-117); Anion Gap 5 (5-15); BUN 32 mg/dL (7-18); BUN/Creat Ratio 30.8 RATIO (10-20); Calcium,Total 8.7 mg/dL (8.5-10.1); Chloride 106 mmol/L (98-107); Cholesterol 124 mg/dL (200); Creatinine, Serum 1.04 mg/dL (0.55-1.02); EST Glomerular Filtration Rate 53 mL/min (>60); Est Glom Filt Rate - Afr Amer 65 mL/min (>60); Globulin 4.6 g/dL (2.2-4.2); Glucose 113 mg/dL (74-106); High Density Lipoprotein 48 mg/dL; Magnesium 2.2 mg/dL (1.6-2.6); Potassium 3.7 mmol/L (3.5-5.1); Sodium Level 138 mmol/L (136-145); Triglycerides 72 mg/dL; Very Low Density Lipoprotein 14 mg/dL (5-40)
[2024-05-29 06:00] VITALS: BP 127/50; PULSE 61; RESP 15; TEMP 36.8; O2SAT 93
[2024-05-29 07:30] LABS: Phosphorus 3.2 mg/dL (2.5-4.9)
[2024-05-29 07:35] VITALS: O2SAT 93
[2024-05-29 07:44] LABS: Osmolality, Serum 299 mOsm/KG (280-301)
[2024-05-29 07:51] LABS: Hemoglobin A1c 5.8 % (3.8-5.6)
[2024-05-29] MEDS: Menthol/Lanolin/Calamine/Znox 113 GM Tube 1 APPLIC TOPICAL ×2 (08:10→20:24)
[2024-05-29] MEDS: Carvedilol 12.5 MG Tablet PO ×2 (08:10→20:17)
[2024-05-29] MEDS: Senna/Docusate Sodium 1 Tablet 2 TABLET PO (08:11)
[2024-05-29] MEDS: Losartan Potassium 25 MG Tablet PO (08:11)
--- NOTE | 2024-05-29 09:54 | PCM.RU.PYE ---
Admission Information Primary Diagnosis:: Debility due to intracerebral hemorrhage Status Changes from Prescreening?: No changes Identified Actual Problem List:: Skin Intergrity, Cognitve Impr/Memory Loss, Bladder Incontinence, Bowel, Incontinence, Bowel, Constipation, Alteration in Sleep, Mobility Impaired, Self Care Deficit, Know.Dfct/Disease Process, Know.Dfct of Medicaitons, BP, Hypertension and Alteration-Leisure Activ. Potential Problem List:: DVT, Bleeding, Infection, UTI, Aspiration, Falls, Skin Integrity and Depression Risk of Complications DVT: SHAN Hose and Sequential Compression Device Bleeding: Monitor Lab Values, Nursing to Teach Precautions for anti-coagulation therapy., Wound, if applicable, to be assessed every shift. and Stroke patients assessed for lethargy or change in status. Infection: Clinical Staff to Monitor for S/S of infection: and S/S of infection include fever, redness, warmth, etc. Urinary Tract Infection: Monitor for frequency, burning, discomfort, or incontinence. and Nursing will obtain urine sample for urinalysis and C&S when ordered. Aspiration: Clinical staff will monitor for coughing, drooling, congestion., Speech will evaluate swallowing and dsyphasia. and Nursing will monitor patient swallowing during meals. Falls: Patient will be evaluated for Fall Precautions and Patient will be placed on Fall Precautions as indicated per protocol. Skin Breakdown: Nursing will assess skin daily using assessment tool. and Nursing will place on Skin Breakdown Precautions as indicated. Pain: Clinical staff will assess patient's pain level per protocol., Medications will be given, if needed, and the pain level reassessed. and Other methods: Massage, distraction, decrease stimulus, etc. used PRN. Plan of Care Patient requires physician specializing in physical medicine and rehab oversight to provide close medical supervision of rehab issues including: Pain Management, Sleep Problems, Bowel and Bladder, Medical and co-morbidity Management, DVT prophylaxis, Rehabilitation Leadership and Coordination of treatment team Patient needs Physical Therapy: For a minimum of 1 hour and At least 5 out of 7 days Patient needs Physical Therapy to improve:: Mobility, Strengthening, Transfers, Stretching, ROM, Endurance, Stairs, Gait and Balance Patient needs Occupational Therapy: For a minimum of 1 hour and At least 5 out of 7 days Patient needs Occupational Therapy to improve ADL's incl.: Eating, Grooming, Bathing, Dressing, Toileting, Toilet transfers, Community Reintegration, Higher functioning activities, Household tasks, Adaptive Equipment, Splinting and Other activities as determined Patient requires speech therapy: For a minimum of 1 hour and At least 5 out of 7 days Patient requires speech therapy for: Swallowing, Cognition, Language Skills and Compensatory Strategies Patient requires 24/ Rehabilitation Nursing for: Pain Issues, Identifying and preventing risk factors, Monitoring and reporting current medical conditions, Assisting with ambulation, transfer, and all ADL's, Teaching patients about disease process and medications, Family teaching, Providing safe environment, Bowel and Bladder Issues, Skin integrity and Medication Management Patient needs Information Security Engineer/ Case Management for: Discharge Planning, Arranging Home Equipment or Services and Family Interventions Patient needs Dietary and Nutrition Services for: Adequate Nutrition, Nutritional Supplements and Nutritional Education Goals Goals Patient will remain: free from falls Patient will perform eating at: MOD I level of assist. Patient will perform bed mobility at: MOD I level of assist. Patient will complete transfers from bed to chair at: - (Min assist) Patient will ambulate: - (25 feet with a wheeled walker at min assist x 1) Patient will complete upper body dressing at: - (Min assist) Patient will complete lower body dressing at: - (Min assist with adaptive equipment as needed) Patient will complete toilet transfer at: - (Min assist) Patient will complete toileting at: - (Min assist) Patient will perform bathing at: - (Upper body bathing at minimal assistance and lower body bathing with minimal assistance using adaptive equipment as needed.) Patient will perform Tub/Shower transfer at: - (Minimal assistance) Patient will complete grooming at: - (Supervision/set up while seated at the sink.) Patient will achieve: - (2 steps with 1 handrail at min assist x 1) Patient will have pain level of: of 3 or less Patient's skin will: remain intact Patient will receive: adequate nutrition. Discharge Planning Pt Prognosis for Sig. Practical Improv. w/in Reasonable Time: Poor Estimated Length of stay (days): 21 Anticipated D/C Destination: Half-Way Facility Was Preadmission Assessment Accurate?: Yes
--- NOTE | 2024-05-29 09:55 | PN_ITS ---
Subjective Subjective Afebrile VSS - Maintaining appropriate oxygen saturation on RA Oral intake - FOOD poor FLUIDS poor Discussed with nursing - no problems that need addressed Reviewed the THERAPY notes Medication list reviewed. All lab drawn this morning was personally reviewed. The white blood cell count is normal at 9.8. Hemoglobin is 9.3 (down from 11.9 on 05/22/2024) with a normal MCV and normal MCH. Sodium is 138 and the potassium is 3.5. The BUN is 32 with a creatinine of 1.04 which is down from 1.09 on 05/22/2024. GFR is 53 which is consistent with stage IIIa chronic renal failure. Hemoglobin A1c is elevated at 5.8. Phosphorus and magnesium are normal. LFTs are unremarkable. Triglycerides are 72 and the total cholesterol is 124 with an LDL of 62 and an HDL of 48. TSH is 3.8. Urine had 5-10 WBCs and no RBCs. It was nitrite negative. Urine sodium is 25 and the urine osmolality is 628. Serum osmolality is 299. Review of systems is severely limited due to severe dementia, exacerbated by recent acute intraparenchymal hemorrhage of the brain. She does not appear to be in any discomfort. She is not tachypneic. She is able to lie flat in bed without shortness of breath. She has a rare dry cough. Objective Data Objective Data Vital Signs: Vital Signs Temp Pulse Resp BP Pulse Ox O2 Del Method 98.3 F 61 15 127/50 H 93 Room Air 05/29/24 06:00 05/29/24 06:00 05/29/24 06:00 05/29/24 06:00 05/29/24 07:35 05/29/24 07:35 Oxygen Delivery Method Room Air Weight: 125 lb Body Mass Index (BMI) 23.6 Intake & Output: Intake and Output for Last 24 Hours 05/27/24 05/28/24 05/29/24 23:59 23:59 23:59 Intake Total 340 / 340 120 / 120 Output Total 200 / 200 100 / 100 Balance 140 / 140 Lab / Micro Data 05/29/24 04:06 05/29/24 04:06 Labs: Laboratory Results - last 24 hr 05/28/24 22:15: Urine Color Yellow, Urine Clarity Clear, Urine pH 6.0, Ur Specific [place] 1.015, Urine Protein 30 H, Urine Glucose (UA) Normal, Urine Ketones Negative, Urine Occult Blood Negative, Urine Nitrite Negative, Urine Bilirubin Negative, Urine Urobilinogen Normal, Ur Leukocyte Esterase 100 H, Urine RBC 0 SEEN, Urine WBC 5-10 SEEN, Ur Squamous Epith Cells 5-10 SEEN, Ur Transition Epith Cell 5-10 SEEN, Urine Bacteria RARE, Fine Granular Casts 0-5 SEEN, Urine Mucus 0 SEEN, Urine Osmolality 628, Ur Random Sodium 25 / 04:06: WBC 9.8, RBC 3.42 L, Hgb 9.3 L, Hct 29.5 L, MCV 86.3, MCH 27.2, MCHC 31.5 L, RDW Std Deviation 44.7 H, RDW Coeff of Edgar 14.2, Plt Count 224, MPV 10.2, Sodium 138, Potassium 3.7, Chloride 106, Carbon Dioxide 26.0, Anion Gap 5, BUN 32 H, Creatinine 1.04 H, Estim Creat Clear Calc 29.30, Est GFR (MDRD) Af Amer 65, Est GFR (MDRD) Non-Af 53 L, BUN/Creatinine Ratio 30.8 H, Glucose 113 H, Hemoglobin A1c 5.8 H, Serum Osmolality 299, Calcium 8.7, Phosphorus 3.2, Magnesium 2.2, Total Bilirubin 0.50, AST 32, ALT 44, Alkaline Phosphatase 89, Total Protein 7.0, Albumin 2.4 L, Globulin 4.6 H, Albumin/Globulin Ratio 0.5 L, Triglycerides 72, Cholesterol 124, LDL Cholesterol 62, VLDL Cholesterol 14, HDL Cholesterol 48, TSH 3.810 H Physical Exam Const alert General Appearance: cooperative HEENT Mouth: dry mucous membranes Neck supple Resp clear to auscultation bilaterally Effort and Inspection: Negative for tachypneic or labored Cardio regular rate, regular rhythm, no murmurs, no rub and no gallops Cardio Narrative: No ectopy GI normal to inspection, nondistended, normoactive bowel sounds and soft to palpation GI Narrative: No guarding with palpation. She had a large bowel movement today. Extremity no calf tenderness General Extremity: Negative for edema Skin Rashes: no rashes Neuro Neuro Narrative: Severe right side neglect. Oriented to person only with me today. Cannot tell me how old she is, the month, the year or where she is. Does not know why she is here. No effort against gravity with the right upper extremity or the right lower extremity. Psych Psych Narrative: Gets agitated at times and is yelling out frequently. Does not understand how to use the call light. Perseverating on using the bedpan and then does not even realize she is on a bedpan and ask what she is supposed to do. Assessment & Plan Assessment/Plan (1) Physical debility: (2) Acute intracerebral hemorrhage: (3) Cerebral amyloid angiopathy: (4) Ronny-neglect of right side: (5) Acute right hemiparesis: (6) HTN (hypertension): QUALIFIERS: Hypertension type: primary hypertension Qualified Code(s): I10 - Essential (primary) hypertension (7) Hyperlipidemia: QUALIFIERS: Hyperlipidemia type: unspecified Qualified Code(s): E 78.5 - Hyperlipidemia, unspecified (8) Dementia: QUALIFIERS: Dementia type: unspecified type Dementia severity: s evere Dementia behavioral or psychological symptom: with agitation Qualified Code(s): F03.C11 - Unspecified dementia, severe, with agitation (9) History of colon cancer: (10) Normochromic normocytic anemia: (11) Agitation due to dementia: PLAN: Plan 1. Continue therapy 2. Patient was given 0.25 mg of Risperdal today and she did calm down and was able to rest. Will start 0.5 mg at HS to help with agitation/restlessness at night 3. Check iron studies and a B12. 4. This patient has severe dementia and had a large IPH which has exacerbated the underlying cognitive deficit. I suspect she will not be able to return home without 24 hour assistance/supervision and will likely need SNF or ECF. Will monitor closely and see how she progresses over the next 5-7 days. Charges/Coding Visit Charges Inpatient E&M: 44600 Subs Hosp L1
--- NOTE | 2024-05-29 10:57 | CASEMGMT ---
Social Work SW attempted to meet with patient to complete initial assessment. Pt is not alert and oriented, fixated on needing to have a bowel movement. Pt was unable to tell me if her was still alive. SW to contact per chart, to complete assessment. Yusra Hernandez WINDOW GLAZIER LICENSED LOAN OFFICER ASSISTANT
--- NOTE | 2024-05-29 12:42 | CASEMGMT ---
Social Work SW phoned , left VM. SW phoned PTN Ngozi Mccauley. Clarified relationship and if she is the second appropriate person to discuss pt's care. Ngozi is pt's cousin and lives locally, but deferred to pt's son, Sadiq and dtr, Ranjana. provided SW will contact information. Pt has DPOA on file and son is listed second after . SW phoned son, Sadiq, who was in the car with . did defer to son d/t his severe hearing impairment, though was involved in assessment questions. SW verified/updated contacts. Son provided baseline of physical and cognitive abilities. Pt could ambulate 200ft to mailbox, daily, using a rollator outside but no device inside. pt was oriented to her birthday, familiar names and faces, but was disoriented with place and time. Son did note pt would get anxious or agitated in new environments, when going out to eat, and would assist in redirecting her, calming her down and ordering her meals for her. Pt required cues to eat, take medications, and doing sequencing tasks. SW inquired about LOF pt will need to be at to return home. cannot do heavy lifting, but can minimally transfer pt, be CGA, assist with hygiene and ADLs. Son stated they prefer would not go to a SNF, and confirmed they do have the funds to hire assistance in the home, if needed. SW educated to Medicare benefit on RU. Explained criteria for participation and tolerance in 3 hours daily therapy and at minimum 3 days/wk of physician intervention. Explained if pt cannot meet that criteria, regardless of approval of days, IDT to assist with DC. Son expressed understanding, but reiterates goal is for pt to recover in RU and return home at baseline. SW to assist with DC planning and be present at Team meetings. Yusra Hernandez, CM QUALITY MEASUREMENT SPECIALIST
[2024-05-29] MEDS: RisperiDONE 0.25 MG Tablet PO (13:48)
[2024-05-29 17:41] LABS: Ferritin 121 ng/mL (8-252); Iron 18 ug/dL (50-170); Iron Binding Capacity,Total 206 ug/dL (250-450); PERCENT IRON SATURATION 8.7 % (15.0-55.0)
[2024-05-29 17:48] VITALS: BP 152/93; PULSE 63; RESP 16; TEMP 36.8; O2SAT 97
[2024-05-29 17:59] LABS: Vitamin B12 671 pg/mL (211-911)
[2024-05-29] MEDS: Atorvastatin Calcium 40 MG Tablet PO (20:17)
[2024-05-29] MEDS: RisperiDONE 0.5 MG Tablet PO (20:17)
[2024-05-29 21:53] VITALS: PULSE 70; RESP 16; O2SAT 92
[2024-05-30 06:00] VITALS: BP 157/60; PULSE 65; RESP 16; TEMP 37.6
[2024-05-30] MEDS: Losartan Potassium 25 MG Tablet PO (10:47)
[2024-05-30] MEDS: Senna/Docusate Sodium 1 Tablet 2 TABLET PO ×2 (10:47→19:54)
[2024-05-30] MEDS: Carvedilol 12.5 MG Tablet PO ×2 (10:47→19:54)
[2024-05-30] MEDS: Menthol/Lanolin/Calamine/Znox 113 GM Tube 1 APPLIC TOPICAL ×2 (10:50→19:53)
--- NOTE | 2024-05-30 12:35 | PCM.PROGNOTE ---
Subjective Subjective Temp was 99.6 today....... has been afebrile otherwise. UA at admission had 5-10 white blood cells and rare bacteria. Nitrite was negative. No culture was sent. Blood pressure has ranged from 127/50 to 152/93 since admission to rehab. Heart rate is within normal limits. Maintaining appropriate oxygen saturation on room air. Not tachypneic. Incontinent of both urine and stool. Hemoccult stool was negative. Iron studies are consistent with iron deficiency. Percent iron saturation was only 8.7%. Denies pain, shortness of breath. Occasional cough. Has been dry. Objective Data Objective Data Vital Signs: Vital Signs Temp Pulse Resp BP Pulse Ox O2 Del Method 99.6 F H 65 16 157/60 H 92 Room Air 05/30/24 06:00 05/30/24 06:00 05/30/24 06:00 05/30/24 06:00 05/29/24 21:53 05/30/24 08:37 Oxygen Delivery Method Room Air Weight: 124 lb 15.998 oz Body Mass Index (BMI) 23.6 Intake & Output: Intake and Output for Last 24 Hours 05/28/24 05/29/24 05/30/24 23:59 23:59 23:59 Intake Total 340 / 340 180 / 180 240 / 240 Output Total 200 / 200 350 / 350 Balance 140 / 140 -170 / -170 240 / 240 Lab / Micro Data 05/31/24 06:24 05/31/24 06:24 Labs: Laboratory Results - last 24 hr 05/29/24 04:06: Iron 18 L, TIBC 206 L, Iron Saturation 8.7 L, Ferritin 121, Vitamin B12 671 Micro: Microbiology 05/29/24 15:15 Stool Stool Occult Blood (AHMET) - Final Physical Exam Const alert Constitutional Narrative: She is calmer since the Risperdal was started. She slept well last night per nursing. General Appearance: cooperative Orientation / Consciousness: confused Resp Resp Narrative: Diminished in the bases but no crackles and no wheezes. She is not tachypneic. Cardio regular rate, regular rhythm and no gallops GI normal to inspection, nondistended, normoactive bowel sounds, soft to palpation and non-tender GI Narrative: No guarding with palpation Extremity no calf tenderness General Extremity: Negative for edema Skin Rashes: no rashes Neuro Neuro Narrative: Still with R hemiplegia. Assessment & Plan Assessment/Plan (1) Physical debility: (2) Acute intracerebral hemorrhage: (3) Cerebral amyloid angiopathy: (4) Ronny-neglect of right side: (5) Acute right hemiparesis: (6) HTN (hypertension): QUALIFIERS: Hypertension type: primary hypertension Qualified Code(s): I10 - Essential (primary) hypertension (7) Hyperlipidemia: QUALIFIERS: Hyperlipidemia type: unspecified Qualified Code(s): E78.5 - Hyperlipidemia, unspecified (8) Dementia: QUALIFIERS: Dementia type: unspecified type Dementia severity: severe Dementia behavioral or psychological symptom: with agitation Qualified Code(s): F03.C11 - Unspecified dementia, severe, with agitation (9) History of colon cancer: (10) Iron deficiency anemia: PLAN: Plan 1. Continue therapy 2. Give 1 dose of iron sucrose 100 mg today and if she tolerates this with no adverse side effects we will give him an additional 600 mg over 3 days then start oral iron 3. Increase losartan to 50 mg daily 4. Recheck a CBC with differential and BMP in the a.m. 5. She does have a low-grade fever today and the UA at admission showed 5-10 white blood cells with some bacteria. Unfortunately no culture was sent. Will repeat a straight cath today and obtain a urine for UA and culture 6. Continue Risperdal 0.5 mg at 8 PM nightly. She rested much better last night and she has been calmer during the day and is not yelling out nearly as frequently as she was at admission. Charges/Coding Visit Charges Inpatient E&M: 03068 [facility] Hosp L1
[2024-05-30 16:01] LABS: Color, Urine Yellow (Yellow); Glucose, Dipstick Normal (Normal); Ketone-Dipstick Negative (Negative); Leukocyte Esterase-Dipstick Negative /ul (Negative); Nitrite-Dipstick Negative (Negative); Occult Blood-Urine Negative /ul (Negative); Protein-Dipstick 30 mg/dl (Negative); Urine Bilirubin Dipstick Negative (Negative); Urine Clarity Clear (Clear); Urine Urobilinogen Normal (Normal)
[2024-05-30 16:20] LABS: Red Blood Cells-Urine 0-5 SEEN /hpf (0-5); White Blood Cells 0-5 SEEN /hpf (0-5)
[2024-05-30 16:21] LABS: Bacteria 1+ /hpf (None Seen); Mucous, Urine 2+ /hpf (<or=2+); Squamous Epithelial Cells - UA 10-25 SEEN /hpf (5-10)
[2024-05-30] MEDS: Sodium Ferric Gluconat/Sucrose 250 MG in 0.9% Normal Saline (250mL Bag) 250 ML 135 MG IV (17:00)
[2024-05-30 18:00] VITALS: BP 146/65; PULSE 62; RESP 18; TEMP 36.8; O2SAT 96
[2024-05-30] MEDS: RisperiDONE 0.5 MG Tablet PO (19:53)
[2024-05-30] MEDS: Atorvastatin Calcium 40 MG Tablet PO (19:54)
[2024-05-30] MEDS: 0.9% Saline Lock 10 ML Syringe IV (19:54)
[2024-05-31 05:50] VITALS: BP 156/85; PULSE 67; RESP 17; TEMP 36.5; O2SAT 93
[2024-05-31 06:44] LABS: Absolute Lymphocyte Count 1.79 X10^3/uL (0.83-4.51); Absolute Neutrophil Count 5.8 X10^3/uL (2.0-7.7); Basophil# 0.05 X10^3/uL; Basophil% 0.5 % (0-1); Eosinophil# 0.18 X10^3/uL; Hematocrit 29.9 % (37-47); Hemoglobin 9.4 g/dL (12.0-15.0); Lymphocyte # 1.79 X10^3/ul (0.83-4.51); Lymphocyte % 19.5 % (19-41); Mean Corp Hgb Conc 31.4 g/dL (32-36); Mean Corpuscular Hgb 27.2 pg (27.0-32.0); Mean Corpuscular Volume 86.4 fL (81-99); Mean Platelet Vol. 10.2 fl (6.2-12.0); Monocyte# 1.23 X10^3/uL; Monocyte% 13.4 % (0-10); NRBC Flagged by Analyzer 0 % (0-5); Neutrophil # 5.82 X10^3/uL (2.7-7.7); Neutrophil % 63.6 % (47-70); Platelet Count 237 K/mm3 (150-450); RBC Distribution Width CV 13.9 % (11.6-14.6); RBC Distribution Width SD 44.2 fl (35.1-43.9); Red Blood Count 3.46 M/mm3 (4.2-5.4); White Blood Count 9.2 K/mm3 (4.4-11.0)
[2024-05-31 07:06] LABS: Anion Gap 4 (5-15); BUN 30 mg/dL (7-18); BUN/Creat Ratio 36.3 RATIO (10-20); Calcium,Total 8.6 mg/dL (8.5-10.1); Chloride 108 mmol/L (98-107); Creatinine, Serum 0.83 mg/dL (0.55-1.02); EST Glomerular Filtration Rate 70 mL/min (>60); Est Glom Filt Rate - Afr Amer 84 mL/min (>60); Estimated Creatinine Clearance 36.71 ml/min; Glucose 124 mg/dL (74-106); Potassium 3.7 mmol/L (3.5-5.1); Sodium Level 138 mmol/L (136-145)
[2024-05-31 07:34] VITALS: O2SAT 94
[2024-05-31] MEDS: Menthol/Lanolin/Calamine/Znox 113 GM Tube 1 APPLIC TOPICAL ×2 (10:07→20:27)
[2024-05-31] MEDS: Carvedilol 12.5 MG Tablet PO ×2 (10:08→20:27)
[2024-05-31] MEDS: Losartan Potassium 50 MG Tablet PO (10:08)
[2024-05-31 10:19] VITALS: BP 192/80
--- NOTE | 2024-05-31 10:36 | PN_ITS ---
Subjective Subjective Afebrile since yesterday a.m. at 0600 VSS -the blood pressure has ranged from 146/65 to 192/80 the past 24 hours. Blood pressure this a.m. is 192/80. Heart rate has been in the 60s. Maintaining appropriate oxygen saturation on RA Oral intake - FOOD mostly poor, 25 to 49%. Seems to do better with supper. FLUIDS fair. She took 1230 cc orally yesterday. Fluid balance yesterday was +1300. Discussed with nursing -loose stool throughout the night. May be secondary to stool softeners however there is another patient on rehab that has C. difficile so we will check a C. difficile. Reviewed the THERAPY notes Medication list reviewed. All lab drawn this morning was personally reviewed. The white blood cell count is 9.2 and the hemoglobin is 9.4 and stable. Platelets are within normal limits. Differential is unremarkable. Sodium is 138 and the potassium is stable at 3.7. The BUN is 30 with a creatinine of 0.83 which is down from 1.04 on 05/29/2024. Recent baseline is unknown. UA was ordered yesterday with a urine culture and the patient was to have a straight cath. Straight cath was not done nursing obtained a clean-catch and there were 10-25 squamous epithelial cells and 1+ bacteria and this is a contaminated specimen. No complaints today. Increased cough today and it is productive. she has not been able to expectorate sputum. Objective Data Objective Data Vital Signs: Vital Signs Temp Pulse Resp BP Pulse Ox O2 Del Method 97.7 F L 67 17 192/80 H 94 Room Air 05/31/24 05:50 05/31/24 05:50 05/31/24 05:50 05/31/24 10:19 05/31/24 07:34 05/31/24 07:34 Oxygen Delivery Method Room Air Weight: 124 lb 15.998 oz Body Mass Index (BMI) 23.6 Intake & Output: Intake and Output for Last 24 Hours 05/29/24 05/30/24 05/31/24 23:59 23:59 23:59 Intake Total 180 / 180 1500 / 1500 270 / 270 Output Total 350 / 350 200 / 200 300 / 300 Balance -170 / -170 1300 / 1300 -30 / -30 Lab / Micro Data 05/31/24 06:24 05/31/24 06:24 Labs: Laboratory Results - last 24 hr 05/30/24 15:50: Urine Color Yellow, Urine Clarity Clear, Urine pH 6.0, Ur Specific [place] 1.020, Urine Protein 30 H, Urine Glucose (UA) Normal, Urine Ketones Negative, Urine Occult Blood Negative, Urine Nitrite Negative, Urine Bilirubin Negative, Urine Urobilinogen Normal, Ur Leukocyte Esterase Negative, Urine RBC 0-5 SEEN, Urine WBC 0-5 SEEN, Ur Squamous Epith Cells 10-25 SEEN, Urine Bacteria 1+, Urine Mucus 2+ 05/31/24 06:24: WBC 9.2, RBC 3.46 L, Hgb 9.4 L, Hct 29.9 L, MCV 86.4, MCH 27.2, MCHC 31.4 L, RDW Std Deviation 44.2 H, RDW Coeff of Edgar 13.9, Plt Count 237, MPV 10.2, Immature Gran % (Auto) 1.000 H, Neut % (Auto) 63.6, Lymph % (Auto) 19.5, M gillian % (Auto) 13.4 H, Eos % (Auto) 2.0, Baso % (Auto) 0.5, Absolute Neuts (auto) 5.8, Absolute Lymphs (auto) 1.79, Nucleated RBC % 0, Sodium 138, Potassium 3.7, Chloride 108 H, Carbon Dioxide 26.0, Anion Gap 4 L, BUN 30 H, Creatinine 0.83, Estim Creat Clear Calc 36.71, Est GFR (MDRD) Af Amer 84, Est GFR (MDRD) Non-Af 70, BUN/Creatinine Ratio 36.3 H, Glucose 124 H, Calcium 8.6 Micro: Microbiology 05/31/24 05:45 Stool Enteric Bacteriology - Final 05/29/24 15:15 Stool Stool Occult Blood (AHMET) - Final Physical Exam Const alert Orientation / Consciousness: confused Resp Resp Narrative: Cough is increased and sounds productive although she is unable to expectorate sputum. There are coarse crackles in the right base posteriorly that improved slightly after a few deep breaths and coughing. No wheezing. She is not tachypneic. Respirations are not labored. She has symmetrical chest expansion. Fair air exchange. Cardio regular rate, regular rhythm and no gallops GI normal to inspection, nondistended, normoactive bowel sounds, soft to palpation and non-tender GI Narrative: No guarding with palpation, bowel sounds are not hyperactive. Extremity General Extremity: Negative for edema Skin Rashes: no rashes Assessment & Plan Assessment/Plan (1) Physical debility: (2) Acute intracerebral hemorrhage: (3) Cerebral amyloid angiopathy: (4) Ronny-neglect of right side: (5) Acute right hemiparesis: (6) HTN (hypertension): QUALIFIERS: Hypertension type: primary hypertension Qualified Code(s): I10 - Essential (primary) hypertension (7) Hyperlipidemia: QUALIFIERS: Hyperlipidemia type: unspecified Qualified Code(s): E 78.5 - Hyperlipidemia, unspecified (8) Dementia: QUALIFIERS: Dementia behavioral or psychological symptom: with agitation Dementia severity: severe Dementia type: unspecified type Qualified Code(s): F03.C11 - Unspecified dementia, severe, with agitation (9) History of colon cancer: (10) Iron deficiency anemia: QUALIFIERS: Iron deficiency anemia type: unspecified iron deficiency Qualified Code(s): D50.9 - Iron deficiency anemia, unspecified (11) Glucose intolerance (impaired glucose tolerance): PLAN: Plan 1. Continue therapy 2. PA and lateral chest x-ray 3. Enteric pathogen panel was negative however there is another patient with C. difficile on the floor so we will check for C. difficile. 4. Ferric sodium gluconate complex 250 mg daily x 3 doses 5. Straight cath today for urine culture. Discussed with nursing......... they understand the need to straight cath.
--- NOTE | 2024-05-31 11:10 | RAD_ITS ---
EXAM: XR CHEST, 2 VIEWS CLINICAL INDICATION: cough TECHNIQUE: Frontal and lateral views of the chest. COMPARISON: 02/20/2019 FINDINGS: LUNGS AND PLEURAL SPACES: Subtle left basilar pulmonary opacity which is likely atelectasis rather than pneumonia and possible small bilateral pleural effusions. Hyperinflated lungs with diffuse interstitial prominence suggesting COPD. No pneumothorax. HEART: Borderline cardiomegaly and/or pericardial effusion. MEDIASTINUM: Central airways and mediastinal contour are unremarkable. BONES/JOINTS: Degenerative changes in the spine and shoulders. No acute fracture. SOFT TISSUES: No significant abnormality. VASCULATURE: Atherosclerosis. RAD/Chest PA and Lateral IMPRESSION: 1. Subtle left basilar pulmonary opacity which is likely atelectasis rather than pneumonia and possible small bilateral pleural effusions. Underlying COPD. 2. Borderline cardiomegaly and/or pericardial effusion. Electronically Signed: Peng Lim DO at 12:35 EST ,
[2024-05-31] MEDS: Sodium Ferric Gluconat/Sucrose 250 MG in 0.9% Normal Saline (250mL Bag) 250 ML 135 MG IV (11:39)
[2024-05-31] MEDS: 0.9% Saline Lock 10 ML Syringe IV ×2 (11:39→20:28)
[2024-05-31 12:14] LABS: BNP,B-Type NATRIURETIC PEPTIDE 122.2 pg/mL (0-100)
[2024-05-31 13:30] VITALS: BP 132/60
[2024-05-31 14:50] LABS: Color, Urine Yellow (Yellow); Glucose, Dipstick Normal (Normal); Ketone-Dipstick Negative (Negative); Leukocyte Esterase-Dipstick Negative /ul (Negative); Nitrite-Dipstick Negative (Negative); Occult Blood-Urine 25 /ul (Negative); Protein-Dipstick Negative (Negative); Specific Gravity, Urine 1.015 (1.002-1.030); Urine Bilirubin Dipstick Negative (Negative); Urine Clarity Clear (Clear); Urine Urobilinogen Normal (Normal); Urine pH 6.5 (5.0 - 8.0)
[2024-05-31 14:58] LABS: Bacteria 1+ /hpf (None Seen); Mucous, Urine 1+ /hpf (<or=2+); Red Blood Cells-Urine 0-5 SEEN /hpf (0-5); Squamous Epithelial Cells - UA 0-5 SEEN /hpf (5-10); White Blood Cells 0-5 SEEN /hpf (0-5)
[2024-05-31 18:00] VITALS: BP 143/58; PULSE 61; RESP 18; TEMP 36.7; O2SAT 93
[2024-05-31] MEDS: RisperiDONE 0.5 MG Tablet PO (20:27)
[2024-05-31] MEDS: Atorvastatin Calcium 40 MG Tablet PO (20:28)
[2024-06-01 05:30] VITALS: BP 172/76; PULSE 64; RESP 16; TEMP 36.3; O2SAT 93
[2024-06-01 05:42] VITALS: BP 172/76; PULSE 64
[2024-06-01] MEDS: hydrALAZINE 10 MG Tablet PO (05:42)
[2024-06-01] MEDS: Menthol/Lanolin/Calamine/Znox 113 GM Tube 1 APPLIC TOPICAL ×2 (09:36→20:15)
[2024-06-01] MEDS: Losartan Potassium 100 MG Tablet PO (09:39)
[2024-06-01] MEDS: Carvedilol 12.5 MG Tablet PO ×2 (09:40→20:14)
--- NOTE | 2024-06-01 10:21 | PCM.PROGNOTE ---
Subjective Subjective Karine was seen on team rounds today. Family was present in the room. Afebrile VSS -blood pressure yesterday ranged from 156/85 to 192/80. Cozaar was increased to 100 mg daily. As needed hydralazine was ordered. She received 1 dose of hydralazine in the past 24 hours and that was early this morning for a blood pressure of 172/176. Maintaining appropriate oxygen saturation on RA Oral intake - FOOD fair - good FLUIDS fair-she took 735 cc orally yesterday and had 270 cc IV. Will need to continue to encourage increased oral fluid intake. Discussed with nursing - no problems that need addressed Reviewed the THERAPY notes Medication list reviewed. C. difficile antigen was positive but the toxin was negative. Because there are 2 other patients on the rehab floor with C. difficile enterocolitis I am going to treat her with vancomycin 125 mg p.o. every 6 hours. Patient has no complaints at this time. She is very pleasant and cooperative. She does not appear to be in any distress. She is now able to lift her right arm above her head and waved it. She is able to move the right lower extremity but is still very weak there. Objective Data Objective Data Vital Signs: Vital Signs Temp Pulse Resp BP Pulse Ox O2 Del Method 97.4 F L 64 16 172/76 H 93 Room Air 06/01/24 05:30 06/01/24 05:42 06/01/24 05:30 06/01/24 05:42 06/01/24 05:30 06/01/24 05:30 Oxygen Delivery Method Room Air Weight: 124 lb 15.998 oz Body Mass Index (BMI) 23.6 Intake & Output: Intake and Output for Last 24 Hours 05/30/24 05/31/24 06/01/24 23:59 23:59 23:59 Intake Total 1500 / 1500 1005 / 1005 150 / 150 Output Total 200 / 200 550 / 550 Balance 1300 / 1300 455 / 455 150 / 150 Lab / Micro Data 05/31/24 06:24 05/31/24 06:24 Labs: Laboratory Results - last 24 hr 05/31/24 06:24: B-Natriuretic Peptide 122.2 H 05/31/24 14:00: Urine Color Yellow, Urine Clarity Clear, Urine pH 6.5, Ur Specific [place] 1.015, Urine Protein Negative, Urine Glucose (UA) Normal, Urine Ketones Negative, Urine Occult Blood 25 H, Urine Nitrite Negative, Urine Bilirubin Negative, Urine Urobilinogen Normal, Ur Leukocyte Esterase Negative, Urine RBC 0-5 SEEN, Urine WBC 0-5 SEEN, Ur Squamous Epith Cells 0-5 SEEN, Urine Bacteria 1+, Urine Mucus 1+ Micro: Microbiology 05/31/24 05:45 Stool C. difficile GDH Antigen & Toxins - Final 05/31/24 05:45 Stool Clostridioides difficile (PCR) - Final 05/30/24 15:50 Urine, Clean Catch Urine Culture - Preliminary Gram negative [email or web address] 05/31/24 05:45 Stool Enteric Bacteriology - Final 05/29/24 15:15 Stool Stool Occult Blood (AHMET) - Final Radiography Diagnostic Testing: Radiology Impression Chest X-Ray 05/31/24 11:10 IMPRESSION: 1. Subtle left basilar pulmonary opacity which is likely atelectasis rather than pneumonia and possible small bilateral pleural effusions. Underlying COPD. 2. Borderline cardiomegaly and/or pericardial effusion. Electronically Signed: Peng Lim DO at 12:35 EST , Physical Exam Const alert Constitutional Narrative: Very pleasant General Appearance: cooperative Orientation / Consciousness: confused HEENT Mouth: dry mucous membranes Resp normal respiratory effort and clear to auscultation bilaterally Effort and Inspection: Negative for tachypneic or respiratory distress Cardio regular rate, regular rhythm and no gallops Cardio Narrative: No ectopy GI normal to inspection, nondistended, normoactive bowel sounds, soft to palpation and non-tender GI Narrative: No guarding with palpation, bowel sounds are not hyperactive. Extremity no calf tenderness General Extremity: Negative for edema Skin Rashes: no rashes Assessment & Plan Assessment/Plan (1) Physical debility: (2) Acute intracerebral hemorrhage: (3) Cerebral amyloid angiopathy: (4) Ronny-neglect of right side: (5) Acute right hemiparesis: (6) HTN (hypertension): QUALIFIERS: Hypertension type: primary hypertension Qualified Code(s): I10 - Essential (primary) hypertension (7) Hyperlipidemia: QUALIFIERS: Hyperlipidemia type: unspecified Qualified Code(s): E78.5 - Hyperlipidemia, unspecified (8) Dementia: QUALIFIERS: Dementia type: unspecified type Dementia severity: severe Dementia behavioral or psychological symptom: with agitation Qualified Code(s): F03.C11 - Unspecified dementia, severe, with agitation (9) History of colon cancer: (10) Iron deficiency anemia: QUALIFIERS: Iron deficiency anemia type: unspecified iron deficiency Qualified Code(s): D50.9 - Iron deficiency anemia, unspecified (11) Glucose intolerance (impaired glucose tolerance): PLAN: Plan 1. Continue therapy 2. Since she is C. difficile antigen positive and has had multiple liquid stools and there are 2 other patients on rehab with C. difficile enterocolitis I am going to treat her with vancomycin 125 mg every 6 hours x 10 days even though the C. difficile toxin was negative. 3. Start ferrous sulfate 325 mg daily on 06/04/2024. IV iron supplementation will conclude on 06/03/2024 after the last dose is given. 4. Continue Risperdal 0.5 mg nightly -agitation/restlessness is much better controlled and she is sleeping well at night. 5. All questions from the family were answered to their satisfaction. Charges/Coding Visit Charges Inpatient E&M: 40225 Subs Hosp L2
[2024-06-01 10:24] VITALS: BP 146/68; PULSE 66
--- NOTE | 2024-06-01 13:26 | CASEMGMT ---
Social Work IDT met with patient, and dtr for Team meeting. Discussed patient's progress in PT/OT/ST/SN. Educated to Medicare approval of 19 days with EDC 06/16. Family's goals are for pt to return home with vs SNF. IDT is concerned with being able to care for pt at LOC. SW explained will be invited to complete shared care closer to DC. Offered to assist with providing resources for hiring caregivers in the home, if family elects home. Will ReTeam weekly. SW will continue to follow for DC planning. Yusra Hernandez, CM DIGITAL CONTENT MANAGER
[2024-06-01] MEDS: Sodium Ferric Gluconat/Sucrose 250 MG in 0.9% Normal Saline (250mL Bag) 250 ML 135 MG IV (14:16)
[2024-06-01] MEDS: 0.9% Saline Lock 10 ML Syringe IV (14:16)
[2024-06-01] MEDS: Vancomycin 125 MG/5 ML Susp PO.SYRINGE PO ×3 (14:16→23:12)
[2024-06-01 18:00] VITALS: BP 153/57; PULSE 64; RESP 18; TEMP 37.1; O2SAT 94
[2024-06-01] MEDS: RisperiDONE 0.5 MG Tablet PO (20:13)
[2024-06-01] MEDS: Atorvastatin Calcium 40 MG Tablet PO (20:14)
[2024-06-02] VITALS (7 sets, daily range): BP systolic 159–177; BP diastolic 55–84; PULSE 60–70; RESP 16–18; TEMP 37–37.1; O2SAT 93–95
[2024-06-02] MEDS: Vancomycin 125 MG/5 ML Susp PO.SYRINGE PO ×4 (05:34→23:00)
[2024-06-02] MEDS: hydrALAZINE 10 MG Tablet PO ×2 (05:37→17:01)
[2024-06-02] MEDS: Carvedilol 12.5 MG Tablet PO ×2 (07:40→20:07)
[2024-06-02] MEDS: Menthol/Lanolin/Calamine/Znox 113 GM Tube 1 APPLIC TOPICAL ×2 (07:40→20:08)
[2024-06-02] MEDS: Losartan Potassium 100 MG Tablet PO (07:40)
[2024-06-02] MEDS: Sodium Chloride 0.65% 1 SPRAY SPRAY.BTL NASAL (08:26)
[2024-06-02] MEDS: Sodium Ferric Gluconat/Sucrose 250 MG in 0.9% Normal Saline (250mL Bag) 250 ML 135 MG IV (10:19)
[2024-06-02] MEDS: 0.9% Saline Lock 10 ML Syringe IV (10:19)
[2024-06-02] MEDS: RisperiDONE 0.5 MG Tablet PO (20:07)
[2024-06-02] MEDS: Atorvastatin Calcium 40 MG Tablet PO (20:07)
[2024-06-03] MEDS: Vancomycin 125 MG/5 ML Susp PO.SYRINGE PO ×4 (05:13→23:40)
[2024-06-03 05:18] VITALS: BP 177/79; PULSE 68
[2024-06-03] MEDS: hydrALAZINE 10 MG Tablet PO (05:18)
[2024-06-03 05:22] VITALS: BP 177/79; PULSE 68; RESP 18; TEMP 36.6; O2SAT 94
[2024-06-03 06:00] VITALS: BMI 24.0
[2024-06-03] MEDS: Losartan Potassium 100 MG Tablet PO (08:16)
[2024-06-03] MEDS: Lactobacillis Acidophilus 1 CAP PO (08:16)
[2024-06-03] MEDS: Carvedilol 12.5 MG Tablet PO ×2 (08:16→21:31)
[2024-06-03] MEDS: 0.9% Saline Lock 10 ML Syringe IV ×2 (10:18→23:40)
[2024-06-03] MEDS: Sodium Ferric Gluconat/Sucrose 250 MG in 0.9% Normal Saline (250mL Bag) 250 ML 135 MG IV (10:18)
[2024-06-03] MEDS: RisperiDONE 0.25 MG Tablet PO (10:21)
[2024-06-03] MEDS: Menthol/Lanolin/Calamine/Znox 113 GM Tube 1 APPLIC TOPICAL ×2 (10:23→21:31)
--- NOTE | 2024-06-03 11:12 | PN_ITS ---
Subjective Subjective Afebrile Systolic blood pressures are not adequately controlled. Blood pressure has ranged from 159/55 to 172/81 over the past 24 hours. Heart rate is within normal limits. She had 2 doses of hydralazine as needed yesterday and 1 this morning. Antihypertensives include carvedilol 12.5 mg twice daily and losartan 100 mg daily Nursing tells me that the Risperdal wears off around 5 AM and she gets restless and agitated. Agitation is better when family is present in the room. Has been getting Risperdal at 8 PM. Having regular bowel movements. Fair food intake the past 2 days. Does better when family is present to feed her. I reviewed the therapy notes. She is not ambulating at this time. She is stand pivot only. Getting out of bed she is max assist x 1 and getting into bed she is mod a assist x 1. Sit to stand is max assist x 2. Continues to have difficulty understanding/following directions. She is total assist with eating, bathing, upper body dressing, lower body dressing, toileting, toilet transfer and tub/shower transfer. Max assist for grooming. Poor attention, charlie when multiple people around. Rare cough. Denies any complaints today. appears comfortable and in no distress. Objective Data Objective Data Vital Signs: Vital Signs Temp Pulse Resp BP Pulse Ox O2 Del Method 97.9 F 68 18 177/79 H 94 Room Air 06/03/24 05:22 06/03/24 05:22 06/03/24 05:22 06/03/24 05:22 06/03/24 05:22 06/03/24 05:22 Oxygen Delivery Method Room Air Weight: 126 lb 15.78 oz Body Mass Index (BMI) 24.0 Intake & Output: Intake and Output for Last 24 Hours 06/01/24 06/02/24 06/03/24 23:59 23:59 23:59 Intake Total 1620 / 1620 1320 / 1440 120 / 120 Output Total 1050 / 1050 400 / 400 Balance 1620 / 1620 270 / 390 -280 / -280 Lab / Micro Data 05/31/24 06:24 05/31/24 06:24 Micro: Microbiology 05/31/24 14:00 Urine, Catheterized Urine Culture - Final Enterobacter cloacae complex 05/30/24 15:50 Urine, Clean Catch Urine Culture - Final Enterobacter cloacae complex 05/31/24 05:45 Stool C. difficile GDH Antigen & Toxins - Final 05/31/24 05:45 Stool Clostridioides difficile (PCR) - Final 05/31/24 05:45 Stool Enteric Bacteriology - Final 05/29/24 15:15 Stool Stool Occult Blood (AHMET) - Final Physical Exam Const alert Constitutional Narrative: agitated at times, charlie in the AM and in the evening. does better when family is present. Orientation / Consciousness: confused Resp normal respiratory effort and clear to auscultation bilaterally Effort and Inspection: Negative for tachypneic or respiratory distress Cardio regular rate, regular rhythm and no gallops Cardio Narrative: No ectopy GI normal to inspection, nondistended, normoactive bowel sounds, soft to palpation and non-tender GI Narrative: No guarding with palpation, bowel sounds are not hyperactive. Extremity no calf tenderness General Extremity: Negative for edema Skin Rashes: no rashes Assessment & Plan Assessment/Plan (1) Physical debility: (2) Acute intracerebral hemorrhage: (3) Cerebral amyloid angiopathy: (4) Ronny-neglect of right side: (5) Acute right hemiparesis: (6) HTN (hypertension): QUALIFIERS: Hypertension type: primary hypertension Qualified Code(s): I10 - Essential (primary) hypertension (7) Hyperlipidemia: QUALIFIERS: Hyperlipidemia type: unspecified Qualified Code(s): E 78.5 - Hyperlipidemia, unspecified (8) Dementia: QUALIFIERS: Dementia type: unspecified type Dementia severity: s evere Dementia behavioral or psychological symptom: with agitation Qualified Code(s): F03.C11 - Unspecified dementia, severe, with agitation (9) History of colon cancer: (10) Iron deficiency anemia: QUALIFIERS: Iron deficiency anemia type: unspecified iron deficiency Qualified Code(s): D50.9 - Iron deficiency anemia, unspecified (11) Glucose intolerance (impaired glucose tolerance): (12) Agitation due to dementia: PLAN: Plan 1. Continue therapy 2. Start hydralazine 25 mg p.o. twice daily and increase as needed hydralazine to 25 mg every 4 hours as needed. 3. Change the at bedtime Risperdal to 10 PM rather than 8 PM 4. Add Risperdal 0.25 mg every morning for restlessness/agitation in the mornings. 5. Urine culture from 05/31/2024 showed less than 1000 colonies of Enterobacter cloacae -no indication to treat with antibiotics at this time. 6. Will continue vancomycin p.o. for stool positive for C. difficile. Toxin was negative but there have been 2 positive cases recently on rehab and we are being proactive. She is now able to lift her R arm above her head but, not able to feed herself because she can not figure out what to do. Can not advance either LE when standing in the parallel bars.........often needs to be told what she needs to do when on the bedpan or the BSC. Nursing using the BSC now but, takes 2 nurses to get her [id number] on and off the toilet. Strength is better but, unfortunately she needs much verbal cueing to move and then she immediately forgets what she is supposed to do. I am skeptical that she is going to be able to go home with just her to assist her. She is total assist for all ADL's except grooming and she is max assist for grooming. She needs 24/ supervision/assistance and at this time frequently needs 2 people to assist her. Charges/Coding Visit Charges Inpatient E&M: 94806 Subs Hosp L1
[2024-06-03 13:08] VITALS: BP 165/75; PULSE 62
[2024-06-03] MEDS: hydrALAZINE 25 MG Tablet PO ×2 (13:08→21:30)
[2024-06-03 17:00] VITALS: BP 160/75; PULSE 72; RESP 18; TEMP 36.3; O2SAT 95
[2024-06-03 21:30] VITALS: BP 184/68; PULSE 66
[2024-06-03] MEDS: Atorvastatin Calcium 40 MG Tablet PO (21:31)
[2024-06-03] MEDS: RisperiDONE 0.5 MG Tablet PO (21:32)
[2024-06-03] MEDS: Acetaminophen 325 MG Tablet 650 MG PO (21:33)
[2024-06-04] MEDS: Ondansetron ODT 4 MG Tablet PO (05:11)
[2024-06-04] MEDS: Vancomycin 125 MG/5 ML Susp PO.SYRINGE PO ×3 (05:14→16:51)
[2024-06-04 05:17] VITALS: BP 174/67; PULSE 69; RESP 17; TEMP 36.4; O2SAT 94
[2024-06-04 05:19] VITALS: BP 174/67; PULSE 69
[2024-06-04] MEDS: hydrALAZINE 25 MG Tablet PO ×3 (05:19→23:49)
--- NOTE | 2024-06-04 05:39 | NURSING ---
Patient with dry heaves during am care. PRN Zofran given. No further episodes of vomiting. States nausea is better.
[2024-06-04] MEDS: Carvedilol 12.5 MG Tablet PO ×2 (07:58→23:50)
[2024-06-04] MEDS: Losartan Potassium 100 MG Tablet PO (07:58)
[2024-06-04] MEDS: Lactobacillis Acidophilus 1 CAP PO (07:59)
[2024-06-04] MEDS: RisperiDONE 0.25 MG Tablet PO (07:59)
[2024-06-04] MEDS: Menthol/Lanolin/Calamine/Znox 113 GM Tube 1 APPLIC TOPICAL (08:03)
--- NOTE | 2024-06-04 08:06 | PN_ITS ---
Subjective Subjective Afebrile Still with systolic hypertension. Blood pressure over the past 24 hours has ranged from 160/75 to 184/68. Heart rate has ranged from 60 to to 72. Maintaining appropriate oxygen saturation on room air She slept well last night and nursing had no concerns. Hydralazine 25 mg twice daily was added to the drug regimen yesterday. Today she is more fatigued and appetite is poor. She had nausea and emesis this morning. Occasional cough....unchanged. Objective Data Objective Data Vital Signs: Vital Signs Temp Pulse Resp BP Pulse Ox O2 Del Method 97.5 F L 69 17 174/67 H 94 Room Air 06/04/24 05:17 06/04/24 05:19 06/04/24 05:17 06/04/24 05:19 06/04/24 05:17 06/04/24 05:17 Oxygen Delivery Method Room Air Weight: 126 lb 15.78 oz Body Mass Index (BMI) 24.0 Intake & Output: Intake and Output for Last 24 Hours 06/02/24 06/03/24 06/04/24 23:59 23:59 23:59 Intake Total 1320 / 1440 1490 / 1490 Output Total 1050 / 1050 1450 / 1450 Balance 270 / 390 40 / 40 Lab / Micro Data 06/05/24 09:50 06/05/24 09:50 Micro: Microbiology 05/31/24 14:00 Urine, Catheterized Urine Culture - Final Enterobacter cloacae complex 05/30/24 15:50 Urine, Clean Catch Urine Culture - Final Enterobacter cloacae complex 05/31/24 05:45 Stool C. difficile GDH Antigen & Toxins - Final 05/31/24 05:45 Stool Clostridioides difficile (PCR) - Final 05/31/24 05:45 Stool Enteric Bacteriology - Final 05/29/24 15:15 Stool Stool Occult Blood (AHMET) - Final Physical Exam Const Constitutional Narrative: Sleepier today and less alert. Does not want to eat. Had an emesis. Orientation / Consciousness: confused HEENT Mouth: dry mucous membranes Resp normal respiratory effort and clear to auscultation bilaterally Effort and Inspection: Negative for tachypneic or respiratory distress Cardio regular rate, regular rhythm and no gallops Cardio Narrative: No ectopy GI normal to inspection, nondistended, normoactive bowel sounds, soft to palpation and non-tender GI Narrative: No guarding with palpation, bowel sounds are not hyperactive. Extremity no calf tenderness General Extremity: Negative for edema Skin Rashes: no rashes Assessment & Plan Assessment/Plan (1) Physical debility: (2) Acute intracerebral hemorrhage: (3) Cerebral amyloid angiopathy: (4) Ronny-neglect of right side: (5) Acute right hemiparesis: (6) HTN (hypertension): QUALIFIERS: Hypertension type: primary hypertension Qualified Code(s): I10 - Essential (primary) hypertension (7) Hyperlipidemia: QUALIFIERS: Hyperlipidemia type: unspecified Qualified Code(s): E 78.5 - Hyperlipidemia, unspecified (8) Dementia: QUALIFIERS: Dementia type: unspecified type Dementia severity: s evere Dementia behavioral or psychological symptom: with agitation Qualified Code(s): F03.C11 - Unspecified dementia, severe, with agitation (9) History of colon cancer: (10) Iron deficiency anemia: QUALIFIERS: Iron deficiency anemia type: unspecified iron deficiency Qualified Code(s): D50.9 - Iron deficiency anemia, unspecified (11) Glucose intolerance (impaired glucose tolerance): (12) Agitation due to dementia: PLAN: Plan 1. Continue therapy 2. Straight cath for UA 3. Encourage increased fluid intake Charges/Coding Visit Charges Inpatient E&M: 99415 Subs Hosp L1
[2024-06-04 08:10] VITALS: PULSE 69
[2024-06-04] MEDS: Ferrous Sulfate 325 MG Tablet PO (13:44)
[2024-06-04 18:00] VITALS: BP 115/61; PULSE 64; RESP 16; TEMP 36.4; O2SAT 96
[2024-06-04 21:22] VITALS: O2SAT 87
--- NOTE | 2024-06-04 21:25 | NURSING ---
Pt has been sleeping since dinner, went in to do assessment and pt is very lethargic, does not obey commands or open eyes, moans with touch and movement. Vitals taken BP 124/48, HR 68 and regular, RR 16, T 97.8 oral, room air POX 87%, Oxygen applied at 2L, blood sugar checked and is 168, hygiene care done to attempt to wake up pt, pt does open eyes ans moans. Does not answer questions. POX on 2L per NC increased to 95%. Will notify Dr. Hannon.
--- NOTE | 2024-06-04 21:41 | NURSING ---
notified via text of pt being lethargic and vitals. Returned call and ordered straight cath for ua,ok for oxygen, and hold meds this evening and she will assess in AM.
[2024-06-04 21:46] LABS: Bedside Glucose 168 mg/dL (74-106)
--- NOTE | 2024-06-04 22:17 | NURSING ---
called back and asked that pt be assessed by hospitalist, pt has hx of cerebral amyloid angiosis and could have another bleed.
--- NOTE | 2024-06-04 22:30 | CT_ITS ---
EXAM: CT HEAD WITHOUT AND WITH INTRAVENOUS CONTRAST CLINICAL INDICATION: change in metal status TECHNIQUE: Multiple axial images were obtained of the head without and with intravenous contrast. This CT exam was performed using one or more of the following dose reduction techniques: automated exposure control, adjustment of the mA and/or kV according to patient size, and/or use of iterative reconstruction technique. CONTRAST: IV 50mL Isovue-300 COMPARISON: CT head, 05/22/2024. FINDINGS: LIMITATIONS: The examination is limited in part due to motion related artifacts. BRAIN AND EXTRA-AXIAL SPACES: The volume of hyperdense blood within the left parietal lobe has decreased since prior examination perhaps secondary to blood aging and/or resorption. Residual vasogenic edema in the region is more extensive than the prior examination with localized mass effect. Asymmetric narrowing of the left lateral ventricle. No hydrocephalus. Patent basal cisterns. Encephalomalacia in the right anterior frontal lobe. No new intracranial hemorrhage or additional pathologic extra-axial fluid. No additional intracranial mass or mass effect and no significant shift of midline structures. No pathologic brain parenchymal enhancement is identified. BONES/JOINTS: Bilateral TMJ arthrosis. No discrete lytic or blastic abnormalities. SINUSES: No significant findings. MASTOID AIR CELLS: Mastoid opacities are again identified. ORBITS: No acute findings. CT/Brain/Head W/WO Contrast IMPRESSION: The volume of hyperdense blood within the left parietal lobe has decreased since prior examination perhaps secondary to blood aging and/or resorption. Residual vasogenic edema in the region is more extensive than the prior examination with overall similar degree of localized mass effect. Electronically Signed: Peng Lim DO at 23:15 EST ,
--- NOTE | 2024-06-04 22:49 | PCM.HOSP.N ---
Hospitalist Note I was contacted by the rehabilitation technician at approximately 2200 hrs. at the request of Dr. Hercules who is the medical coordinator of the rehab unit who accepted this patient on May 28, 2024 with an acute Intracerebral Hemorrhage with noncontrast CT showing a ~3.2 cm x ~3.6 cm Acute Hemorrhage in the posterior Left parietal occipital lobe with surrounding edema and mass effect complicated by acute Right-sided weakness on May 22, 2024 with eventual transfer to [facility] neurointensive care unit with patient placed on nicardipine drip which was weaned the following day with neurosurgery consulted and feeling patient did not require neurosurgical intervention at that time. According to the nurse this patient has been increasingly hypersomnolent throughout the day and now lethargic and not responding to her commands or painful stimuli. After initially requesting straight catheterization for urinalysis Dr. Hercules apparently instructed nurse to call the hospitalist to evaluate the patient in case she was having a recurrent head bleed. The patient then underwent a STAT CTA of the head with IV contrast which revealed a decreased volume of hyperdense blood in the Left parietal lobe with residual vasogenic edema in the region more extensive than previous with overall similar degree of mass effect. I then personally evaluated the patient at the bedside and she was alert, appropriate and denied significant complaints with the rehabilitation technician updated with result. Dr. Hercules will be updated with results in the AM when she is back on-call. [facility] [address] [place] [address] [id number] Brain/Head W/WO Contrast MR#: [id number] Acct: [id number] Name: MUNDO LOVE Rep #: [id number] : [id number] F [id number] From: Peng Lim DO PCP: Care Physician,No Primary Status: ADM IN Study: Brain/Head W/WO Contrast Date of Exam: 06/04/24 Exam# [id number] Ordering Dr: Anthony Grant DO EXAM: CT HEAD WITHOUT AND WITH INTRAVENOUS CONTRAST CLINICAL INDICATION: change in metal status TECHNIQUE: Multiple axial images were obtained of the head without and with intravenous contrast. This CT exam was performed using one or more of the following dose reduction techniques: automated exposure control, adjustment of the mA and/or kV according to patient size, and/or use of iterative reconstruction technique. CONTRAST: IV 50mL Isovue-300 COMPARISON: CT head, 05/22/2024. FINDINGS: LIMITATIONS: The examination is limited in part due to motion related artifacts. BRAIN AND EXTRA-AXIAL SPACES: The volume of hyperdense blood within the left parietal lobe has decreased since prior examination perhaps secondary to blood aging and/or resorption. Residual vasogenic edema in the region is more extensive than the prior examination with localized mass effect. Asymmetric narrowing of the left lateral ventricle. No hydrocephalus. Patent basal cisterns. Encephalomalacia in the right anterior frontal lobe. No new intracranial hemorrhage or additional pathologic extra-axial fluid. No additional intracranial mass or mass effect and no significant shift of midline structures. No pathologic brain parenchymal enhancement is identified. BONES/JOINTS: Bilateral TMJ arthrosis. No discrete lytic or blastic abnormalities. SINUSES: No significant findings. MASTOID AIR CELLS: Mastoid opacities are again identified. ORBITS: No acute findings. CT/Brain/Head W/WO Contrast IMPRESSION: The volume of hyperdense blood within the left parietal lobe has decreased since prior examination perhaps secondary to blood aging and/or resorption. Residual vasogenic edema in the region is more extensive than the prior examination with overall similar degree of localized mass effect. Electronically Signed: Peng Lim DO at 23:15 EST , CC: Dr. Anthony Grant DO; No Primary Care Physician ~ Concrete Mixer Operator: Signed
--- NOTE | 2024-06-04 23:16 | NURSING ---
Pt returned from CTscan, sitting up in bed and talking, alert, oriented to self only. Sat up in bed and drank 400ml.
--- NOTE | 2024-06-04 23:41 | NURSING ---
urine sample collected at this time as per order, only 120cc was obtained via straight cathing pt. pt tolerated the procedure well. pt currently wide awake and was encouraged to drink more water, pt is currently complying with staff request
[2024-06-04 23:44] LABS: Mucous, Urine 0 SEEN /hpf (<or=2+); Red Blood Cells-Urine 0 SEEN /hpf (0-5); Squamous Epithelial Cells - UA 0 SEEN /hpf (5-10)
[2024-06-04 23:49] VITALS: BP 143/66; PULSE 77
[2024-06-04] MEDS: RisperiDONE 0.5 MG Tablet PO (23:49)
[2024-06-04] MEDS: Atorvastatin Calcium 40 MG Tablet PO (23:50)
[2024-06-05 00:06] LABS: Color, Urine Yellow (Yellow); Glucose, Dipstick Normal (Normal); Ketone-Dipstick Negative (Negative); Leukocyte Esterase-Dipstick 500 /ul (Negative); Nitrite-Dipstick Negative (Negative); Occult Blood-Urine 50 /ul (Negative); Protein-Dipstick 100 mg/dl (Negative); Urine Bilirubin Dipstick Negative (Negative); Urine Clarity Turbid (Clear); Urine Urobilinogen Normal (Normal)
[2024-06-05] MEDS: Menthol/Lanolin/Calamine/Znox 113 GM Tube 1 APPLIC TOPICAL ×3 (00:07→22:02)
[2024-06-05] MEDS: Vancomycin 125 MG/5 ML Susp PO.SYRINGE PO ×5 (00:10→23:38)
[2024-06-05 01:04] LABS: Bacteria 3+ /hpf (None Seen); White Blood Cells >100 SEEN /hpf (0-5)
[2024-06-05 05:59] VITALS: BP 150/74; PULSE 68; RESP 18; TEMP 36.3; O2SAT 94
[2024-06-05 07:52] VITALS: PULSE 68
[2024-06-05] MEDS: Lactobacillis Acidophilus 1 CAP PO (07:52)
[2024-06-05] MEDS: Losartan Potassium 100 MG Tablet PO (07:52)
[2024-06-05] MEDS: RisperiDONE 0.25 MG Tablet PO (07:52)
[2024-06-05] MEDS: Carvedilol 12.5 MG Tablet PO ×2 (07:52→22:02)
[2024-06-05] MEDS: hydrALAZINE 25 MG Tablet PO ×2 (07:52→22:02)
[2024-06-05] MEDS: Cefepime HCl 1 GM in 0.9% Normal Saline (50mL MB+) 50 ML IV (09:36)
[2024-06-05] MEDS: 0.9% Saline Lock 10 ML Syringe IV ×2 (09:36→22:00)
[2024-06-05 10:02] LABS: Absolute Lymphocyte Count 1.64 X10^3/uL (0.83-4.51); Absolute Neutrophil Count 8.3 X10^3/uL (2.0-7.7); Basophil# 0.04 X10^3/uL; Basophil% 0.4 % (0-1); Eosinophil# 0.14 X10^3/uL; Eosinophils% 1.3 % (0-5); Hematocrit 31.4 % (37-47); Hemoglobin 9.9 g/dL (12.0-15.0); Lymphocyte # 1.64 X10^3/ul (0.83-4.51); Lymphocyte % 14.8 % (19-41); Mean Corp Hgb Conc 31.5 g/dL (32-36); Mean Corpuscular Hgb 27.6 pg (27.0-32.0); Mean Corpuscular Volume 87.5 fL (81-99); Mean Platelet Vol. 9.7 fl (6.2-12.0); Monocyte# 0.79 X10^3/uL; Monocyte% 7.1 % (0-10); NRBC Flagged by Analyzer 0 % (0-5); Neutrophil # 8.29 X10^3/uL (2.7-7.7); Platelet Count 273 K/mm3 (150-450); RBC Distribution Width CV 14.3 % (11.6-14.6); RBC Distribution Width SD 45.8 fl (35.1-43.9); Red Blood Count 3.59 M/mm3 (4.2-5.4); White Blood Count 11.1 K/mm3 (4.4-11.0)
[2024-06-05 10:54] LABS: Anion Gap 4 (5-15); BUN 39 mg/dL (7-18); BUN/Creat Ratio 34.8 RATIO (10-20); Calcium,Total 9.1 mg/dL (8.5-10.1); Chloride 105 mmol/L (98-107); Creatinine, Serum 1.12 mg/dL (0.55-1.02); EST Glomerular Filtration Rate 49 mL/min (>60); Est Glom Filt Rate - Afr Amer 59 mL/min (>60); Estimated Creatinine Clearance 29.44 ml/min; Glucose 190 mg/dL (74-106); Sodium Level 136 mmol/L (136-145)
[2024-06-05] MEDS: Ferrous Sulfate 325 MG Tablet PO (11:51)
[2024-06-05 18:00] VITALS: BP 155/50; PULSE 71; RESP 17; TEMP 36.8; O2SAT 96
--- NOTE | 2024-06-05 18:19 | PN_ITS ---
Subjective Subjective Cefepime day #1 Afebrile VSS -blood pressure over the past 24 hours has ranged from 115/61 to 174/67. Blood pressure this a.m. is 150/74. Maintaining appropriate oxygen saturation on RA Oral intake - FOOD poor FLUIDS poor Discussed with nursing -very somnolent and difficult for nursing to arouse last night in the late evening. She was sent for a CT brain to rule out a new intraparenchymal hemorrhage and no hemorrhage was observed. When she returned from CT scan she was alert and appropriate. She has been more alert today and appropriate. Reviewed the THERAPY notes Medication list reviewed. She does not appear to be in any distress. Rare cough. Not tachypneic. Does not appear to be in pain. Has no complaints. Denies nausea and denies abdominal pain. The urine was turbid and had greater than 100 WBCs per high-powered field with 0 RBCs. There was 3+ bacteria and it was a straight cath specimen. Urine culture is pending. Urine culture on 05/31/2024 showed less than 1000 colonies of Enterobacter cloacae. It is sensitive to cefepime but was resistant to Zosyn. Objective Data Objective Data Vital Signs: Vital Signs Temp Pulse Resp BP Pulse Ox O2 Del Method O2 Flow Rate 97.4 F L 68 18 150/74 H 94 Nasal Cannula 2 06/05/24 05:59 06/05/24 07:52 06/05/24 05:59 06/05/24 05:59 06/05/24 05:59 06/05/24 05:59 06/05/24 05:59 Oxygen Flow Rate (L/min) 2 Oxygen Delivery Method Nasal Cannula Weight: 126 lb 15.78 oz Body Mass Index (BMI) 24.0 Intake & Output: Intake and Output for Last 24 Hours 06/03/24 06/04/24 06/05/24 23:59 23:59 23:59 Intake Total 1490 / 1490 915 / 915 610 / 610 Output Total 1450 / 1450 320 / 320 400 / 400 Balance 40 / 40 595 / 595 210 / 210 Lab / Micro Data 06/05/24 09:50 06/05/24 09:50 Labs: Laboratory Results - last 24 hr 06/04/24 21:25: POC Glucose 168 H 06/04/24 23:30: Urine Color Yellow, Urine Clarity Turbid, Urine pH 6.0, Ur Specific [place] 1.020, Urine Protein 100 H, Urine Glucose (UA) Normal, Urine Ketones Negative, Urine Occult Blood 50 H, Urine Nitrite Negative, Urine Bilirubin Negative, Urine Urobilinogen Normal, Ur Leukocyte Esterase 500 H, Urine RBC 0 SEEN, Urine WBC >100 SEEN, Ur Squamous Epith Cells 0 SEEN, Urine Bacteria 3+, Urine Mucus 0 SEEN 06/05/24 09:50: WBC 11.1 H, RBC 3.59 L, Hgb 9.9 L, Hct 31.4 L, MCV 87.5, MCH 27.6, MCHC 31.5 L, RDW Std Deviation 45.8 H, RDW Coeff of Edgar 14.3, Plt Count 273, MPV 9.7, Immature Gran % (Auto) 1.400 H, Neut % (Auto) 75.0 H, Lymph % (Auto) 14.8 L, Ogle % (Auto) 7.1, Eos % (Auto) 1.3, Baso % (Auto) 0.4, Absolute Neuts (auto) 8.3 H, Absolute Lymphs (auto) 1.64, Nucleated RBC % 0, Sodium 136, Potassium 4.0, Chloride 105, Carbon Dioxide 27.0, Anion Gap 4 L, BUN 39 H, C reatinine 1.12 H, Estim Creat Clear Calc 29.44, Est GFR (MDRD) Af Amer 59 L, Est GFR (MDRD) Non-Af 49 L, BUN/Creatinine Ratio 34.8 H, Glucose 190 H, Calcium 9.1 Micro: Microbiology 05/31/24 14:00 Urine, Catheterized Urine Culture - Final Enterobacter cloacae complex 05/30/24 15:50 Urine, Clean Catch Urine Culture - Final Enterobacter cloacae complex 05/31/24 05:45 Stool C. difficile GDH Antigen & Toxins - Final 05/31/24 05:45 Stool Clostridioides difficile (PCR) - Final 05/31/24 05:45 Stool Enteric Bacteriology - Final 05/29/24 15:15 Stool Stool Occult Blood (AHMET) - Final Radiography Diagnostic Testing: Radiology Impression Brain CT 06/04/24 22:30 IMPRESSION: The volume of hyperdense blood within the left parietal lobe has decreased since prior examination perhaps secondary to blood aging and/or resorption. Residual vasogenic edema in the region is more extensive than the prior examination with overall similar degree of localized mass effect. Electronically Signed: Peng Lim, DO at 23:15 EST , Physical Exam Const Constitutional Narrative: More alert today. Was able to participate with therapy. She made good eye contact with me when we were speaking. Does not appear to be in any distress. No emesis today. Appetite is still poor but she did eat today. Orientation / Consciousness: confused HEENT Mouth: dry mucous membranes Resp normal respiratory effort and clear to auscultation bilaterally Effort and Inspection: Negative for tachypneic or respiratory distress Cardio regular rate, regular rhythm and no gallops Cardio Narrative: No ectopy GI normal to inspection, nondistended, normoactive bowel sounds, soft to palpation and non-tender GI Narrative: No guarding with palpation, bowel sounds are not hyperactive. No pain with palpation of the suprapubic area. No pain with palpation of the costophrenic angles. Extremity no calf tenderness General Extremity: Negative for edema Skin Rashes: no rashes Assessment & Plan Assessment/Plan (1) Physical debility: (2) Acute intracerebral hemorrhage: (3) Cerebral amyloid angiopathy: (4) Ronny-neglect of right side: (5) Acute right hemiparesis: (6) HTN (hypertension): QUALIFIERS: Hypertension type: primary hypertension Qualified Code(s): I10 - Essential (primary) hypertension (7) Hyperlipidemia: QUALIFIERS: Hyperlipidemia type: unspecified Qualified Code(s): E 78.5 - Hyperlipidemia, unspecified (8) Dementia: QUALIFIERS: Dementia type: unspecified type Dementia severity: s evere Dementia behavioral or psychological symptom: with agitation Qualified Code(s): F03.C11 - Unspecified dementia, severe, with agitation (9) History of colon cancer: (10) Iron deficiency anemia: QUALIFIERS: Iron deficiency anemia type: unspecified iron deficiency Qualified Code(s): D50.9 - Iron deficiency anemia, unspecified (11) Glucose intolerance (impaired glucose tolerance): (12) Agitation due to dementia: (13) Pyelonephritis, acute: PLAN: Plan 1. Continue therapy 2. Cefepime 1 g IV every 24 hours until the results of the urine culture are back. 3. Await the results of the urine culture to make adjustments to the antibiotic 4. Continue to encourage increased fluid intake 5. Check blood pressures every 4 hours while awake. Goal for blood pressure management is less than 130/80. Will continue as needed hydralazine. 6. Check orthostatics -if she is orthostatic we will give IV normal saline 1-2 liters. I reviewed all lab from today personally. The white blood cell count is now elevated at 11.1. There is a left shift present. Hemoglobin is stable at 9.9 and platelets are within normal limits. Sodium is stable at 136 and the potassium is 4. The BUN is up to 39 and the creatinine today is 1.12, up from 0.83 on 05/31/2024. Charges/Coding Visit Charges Inpatient E&M: 55202 Subs Hosp L2
[2024-06-05 18:32] VITALS: BP 134/55; BP 135/90; BP 159/88; PULSE 81; PULSE 85; PULSE 91
[2024-06-05] MEDS: RisperiDONE 0.5 MG Tablet PO (22:01)
[2024-06-05 22:02] VITALS: BP 153/59; PULSE 72
[2024-06-05] MEDS: Atorvastatin Calcium 40 MG Tablet PO (22:02)
[2024-06-06] VITALS (11 sets, daily range): BP systolic 111–173; BP diastolic 38–76; PULSE 66–72; RESP 16–18; TEMP 36.4–36.6; O2SAT 94–96
[2024-06-06] MEDS: Acetaminophen 325 MG Tablet 650 MG PO ×2 (01:53→20:22)
[2024-06-06] MEDS: Vancomycin 125 MG/5 ML Susp PO.SYRINGE PO ×4 (05:54→23:06)
[2024-06-06] MEDS: hydrALAZINE 25 MG Tablet PO ×3 (05:56→20:31)
[2024-06-06] MEDS: Sodium Chloride 0.65% 1 SPRAY SPRAY.BTL NASAL ×2 (07:58→20:03)
[2024-06-06] MEDS: RisperiDONE 0.25 MG Tablet PO (09:56)
[2024-06-06] MEDS: Losartan Potassium 100 MG Tablet PO (09:56)
[2024-06-06] MEDS: Lactobacillis Acidophilus 1 CAP PO (09:56)
[2024-06-06] MEDS: Carvedilol 12.5 MG Tablet PO ×2 (09:56→20:30)
[2024-06-06] MEDS: Menthol/Lanolin/Calamine/Znox 113 GM Tube 1 APPLIC TOPICAL ×2 (09:57→20:33)
[2024-06-06] MEDS: Cefepime HCl 1 GM in 0.9% Normal Saline (50mL MB+) 50 ML IV (10:04)
[2024-06-06] MEDS: 0.9% Saline Lock 10 ML Syringe IV ×2 (10:04→20:32)
[2024-06-06] MEDS: Ferrous Sulfate 325 MG Tablet PO (12:32)
[2024-06-06] MEDS: RisperiDONE 0.5 MG Tablet PO (20:31)
[2024-06-06] MEDS: Atorvastatin Calcium 40 MG Tablet PO (20:31)
[2024-06-06] MEDS: guaiFENesin 10 ML UDC (200MG/10ML) PO (23:06)
[2024-06-07] VITALS (7 sets, daily range): BP systolic 134–180; BP diastolic 50–75; PULSE 70–80; RESP 18; TEMP 36.2–36.7; O2SAT 95
[2024-06-07] MEDS: Vancomycin 125 MG/5 ML Susp PO.SYRINGE PO ×3 (05:19→18:14)
[2024-06-07] MEDS: hydrALAZINE 25 MG Tablet PO ×3 (05:21→20:05)
[2024-06-07] MEDS: RisperiDONE 0.25 MG Tablet PO (07:59)
[2024-06-07] MEDS: Carvedilol 12.5 MG Tablet PO ×2 (07:59→20:06)
[2024-06-07] MEDS: Lactobacillis Acidophilus 1 CAP PO (07:59)
[2024-06-07] MEDS: Losartan Potassium 100 MG Tablet PO (07:59)
[2024-06-07] MEDS: Acetaminophen 325 MG Tablet 650 MG PO (08:00)
[2024-06-07] MEDS: Cefepime HCl 1 GM in 0.9% Normal Saline (50mL MB+) 50 ML IV (09:08)
[2024-06-07] MEDS: 0.9% Saline Lock 10 ML Syringe IV ×2 (09:11→20:12)
[2024-06-07] MEDS: Menthol/Lanolin/Calamine/Znox 113 GM Tube 1 APPLIC TOPICAL ×2 (09:13→20:05)
[2024-06-07] MEDS: Ferrous Sulfate 325 MG Tablet PO (13:23)
[2024-06-07] MEDS: Atorvastatin Calcium 40 MG Tablet PO (20:07)
[2024-06-07] MEDS: RisperiDONE 0.5 MG Tablet PO (20:07)
[2024-06-08] VITALS (7 sets, daily range): BP systolic 105–182; BP diastolic 45–74; PULSE 68–75; RESP 14–16; TEMP 36.5–36.8; O2SAT 94
[2024-06-08] MEDS: Vancomycin 125 MG/5 ML Susp PO.SYRINGE PO ×4 (00:38→17:06)
[2024-06-08] MEDS: hydrALAZINE 25 MG Tablet PO (06:35)
--- NOTE | 2024-06-08 08:37 | PN_ITS ---
Subjective Subjective Karine was seen on team rounds today. Her son, daughter and were present in the room. All their questions were answered to their satisfaction. Day #4 Cefepime Vancomycin p.o. #/ Afebrile VSS -blood pressure in the a.m. is still not adequately controlled. Heart rate is within normal limits. Maintaining appropriate oxygen saturation on RA Oral intake - FOOD very erratic. She refused 3 meals in the past few days but then ate a good lunch and then a good supper yesterday. Ate poorly for breakfast today. She is cooperating with drinking her Ensure. FLUIDS oral fluid intake yesterday was 1135. Discussed with nursing - nursing feels her abd is more distended. Slept most of the night last night. Has not been agitated. She is pleasant and cooperative. Reviewed the THERAPY notes - really has not made progress with OT or PT since admission to rehab. She is still requiring total assistance with tub/shower transfer, toilet transfer, toileting, lower body dressing, upper body dressing she is min assist for grooming and max assist for bathing. She requires max/mod assist x 1 to do 1 sit to stand and 30 seconds. She is unable to do the timed up and go test because she can only stand pivot at this time and it requires total assistance, sometimes with 2 people. Has not ambulated. She stood for 6 minutes today in the parallel bars with min to max assist of 1 depending on how fatigued she is. She is unable to take even 1 step. Medication list reviewed. Urine culture growing greater than 100,000 colonies of Enterobacter cloacae which is sensitive to cefepime, Fluoroquinolones, Bactrim and nitrofurantoin. She does not appear to be in any distress. Really not able to answer questions appropriately. She answers most questions was either I do not know or you tell me. Her son tells us that she is at her baseline mentally. Objective Data Objective Data Vital Signs: Vital Signs Temp Pulse Resp BP Pulse Ox O2 Del Method O2 Flow Rate 97.7 F L 75 14 182/74 H 94 Room Air 2 06/08/24 06:00 06/08/24 06:35 06/08/24 06:00 06/08/24 06:35 06/08/24 06:00 06/08/24 06:00 06/06/24 00:00 Oxygen Flow Rate (L/min) 2 Oxygen Delivery Method Room Air Weight: 126 lb 15.78 oz Body Mass Index (BMI) 24.0 Intake & Output: Intake and Output for Last 24 Hours 06/06/24 06/07/24 06/08/24 23:59 23:59 23:59 Intake Total 1200 / 1260 1135 / 1135 300 / 300 Output Total 1400 / 1400 950 / 950 Balance -200 / -140 185 / 185 300 / 300 Lab / Micro Data 06/09/24 05:41 06/09/24 05:41 Micro: Microbiology 06/04/24 23:30 Urine, Clean Catch Urine Culture - Preliminary Gram negative lashonda 05/31/24 14:00 Urine, Catheterized Urine Culture - Final Enterobacter cloacae complex 05/30/24 15:50 Urine, Clean Catch Urine Culture - Final Enterobacter cloacae complex 05/31/24 05:45 Stool C. difficile GDH Antigen & Toxins - Final 05/31/24 05:45 Stool Clostridioides difficile (PCR) - Final 05/31/24 05:45 Stool Enteric Bacteriology - Final 05/29/24 15:15 Stool Stool Occult Blood (AHMET) - Final Physical Exam Const alert Constitutional Narrative: Oriented to person only. Pleasant. Makes eye contact with me. Answers every question with either I do not know or asks me a question. HEENT moist oral mucous membranes Neck supple Resp normal respiratory effort Resp Narrative: Few coarse crackles in the bases and bases are diminished. This is unchanged since admission. Rare dry cough. Effort and Inspection: Negative for tachypneic Cardio regular rate, regular rhythm and no gallops GI GI Narrative: Abdomen is mildly distended and tympanic but it is soft. She does not guard with palpation. Bowel sounds are normal. Extremity no calf tenderness General Extremity: Negative for edema Skin Rashes: no rashes Assessment & Plan Assessment/Plan (1) Physical debility: (2) Acute intracerebral hemorrhage: (3) Cerebral amyloid angiopathy: (4) Ronny-neglect of right side: (5) Acute right hemiparesis: (6) HTN (hypertension): QUALIFIERS: Hypertension type: primary hypertension Qualified Code(s): I10 - Essential (primary) hypertension (7) Hyperlipidemia: QUALIFIERS: Hyperlipidemia type: unspecified Qualified Code(s): E 78.5 - Hyperlipidemia, unspecified (8) Dementia: QUALIFIERS: Dementia type: unspecified type Dementia severity: s evere Dementia behavioral or psychological symptom: with agitation Qualified Code(s): F03.C11 - Unspecified dementia, severe, with agitation (9) History of colon cancer: (10) Iron deficiency anemia: QUALIFIERS: Iron deficiency anemia type: unspecified iron deficiency Qualified Code(s): D50.9 - Iron deficiency anemia, unspecified (11) Glucose intolerance (impaired glucose tolerance): (12) Agitation due to dementia: (13) Pyelonephritis, acute: PLAN: Plan 1. Continue therapy 2. Discontinue cefepime after today's dose and start Levaquin 250 mg daily x 3 days for a total of 7 days of antibiotics. 3. CBC with differential, BMP in the a.m. 4. KUB today for abdominal distention. I suspect the loose stool and mild abdominal distention are related to the oral vancomycin. No nausea no emesis. 5. Change the hydralazine to 50 mg 3 times daily. Continue Coreg 12.5 mg twice daily and Cozaar. KUB was personally reviewed. Unremarkable gas pattern. No evidence of bowel obstruction. Charges/Coding Visit Charges Inpatient E&M: 99660 Subs Hosp L2
--- NOTE | 2024-06-08 09:10 | RAD_ITS ---
STUDY: X-RAY - ABDOMEN/PELVIS REASON FOR EXAM: Female, 88 years old. abd distention TECHNIQUE: Single AP view of the abdomen / pelvis. COMPARISON: None. FINDINGS: Normal visualized lung bases. There is an unremarkable bowel gas pattern. The visualized liver, spleen and kidneys are grossly normal in size and morphology. Normal soft tissue structures. Normal visualized osseous structures. RAD/Abdomen Single View IMPRESSION: Normal x-ray examination of the abdomen and pelvis. Electronically Signed: Sav Menchaca MD at 12:09 EST ,
[2024-06-08] MEDS: Ferrous Sulfate 325 MG Tablet PO (09:49)
[2024-06-08] MEDS: Lactobacillis Acidophilus 1 CAP PO (09:49)
[2024-06-08] MEDS: Carvedilol 12.5 MG Tablet PO ×2 (09:49→21:33)
[2024-06-08] MEDS: RisperiDONE 0.25 MG Tablet PO (09:49)
[2024-06-08] MEDS: Losartan Potassium 100 MG Tablet PO (09:49)
[2024-06-08] MEDS: Menthol/Lanolin/Calamine/Znox 113 GM Tube 1 APPLIC TOPICAL ×2 (09:49→21:32)
[2024-06-08] MEDS: Cefepime HCl 1 GM in 0.9% Normal Saline (50mL MB+) 50 ML IV (11:03)
--- NOTE | 2024-06-08 12:50 | CASEMGMT ---
Social Work IDT met with patient, , dtr and son for Team meeting. Discussed patient's progress in PT/OT/ST/SN. Educated to Medicare benefit, with DC 06/16. Pt is needing x2-total assist for all ADLs and tasks. IDT recommending SNF. Pt is pleasantly confused, but poor rehab prognosis d/t cognitive deficit. Family agrees pt will need a SNF and provided preferences as [facility], [facility] and [facility]. Family is touring [facility] today. SW educated to SNFs provided acceptance/denial, and will update family. Family voiced wanting pt to return home with caregiver assistance. SW provided resources. Dr explained TCU is likely not appropriate for pt, d/t LOS and changing environments, as pt is likely going to need longer term care than TCU. Son expressed understanding. SW will place referrals and communicate with family. Family noted there will be an air brush operator visiting pt to complete financial POA paperwork. Dr Hannon is completing an expert eval to note pts incompetency. ST and SW confirmed pt is not able to sign any paperwork. SW requested family notify this worker of when air brush operator will be visiting to coordinate therapy schedule. Dtr agreed. SW will continue to follow. Will ReTeam next week prior to DC. Plan: DC 06/16 to SNF, skilled CM Nguyen
[2024-06-08] MEDS: hydrALAZINE 50 MG Tablet PO ×2 (15:22→21:33)
[2024-06-08] MEDS: RisperiDONE 0.5 MG Tablet PO (21:29)
[2024-06-08] MEDS: Atorvastatin Calcium 40 MG Tablet PO (21:30)
[2024-06-09] MEDS: Acetaminophen 325 MG Tablet 650 MG PO (00:09)
[2024-06-09] MEDS: Vancomycin 125 MG/5 ML Susp PO.SYRINGE PO ×5 (00:09→23:16)
[2024-06-09 05:53] LABS: Absolute Neutrophil Count 7.7 X10^3/uL (2.0-7.7); Basophil# 0.03 X10^3/uL; Basophil% 0.3 % (0-1); Eosinophil# 0.17 X10^3/uL; Eosinophils% 1.5 % (0-5); Hematocrit 31.9 % (37-47); Hemoglobin 9.7 g/dL (12.0-15.0); Lymphocyte % 17.8 % (19-41); Mean Corp Hgb Conc 30.4 g/dL (32-36); Mean Corpuscular Hgb 26.6 pg (27.0-32.0); Mean Corpuscular Volume 87.6 fL (81-99); Mean Platelet Vol. 9.5 fl (6.2-12.0); Monocyte# 1.31 X10^3/uL; Monocyte% 11.6 % (0-10); NRBC Flagged by Analyzer 0 % (0-5); Neutrophil # 7.66 X10^3/uL (2.7-7.7); Platelet Count 288 K/mm3 (150-450); RBC Distribution Width CV 14.4 % (11.6-14.6); RBC Distribution Width SD 45.7 fl (35.1-43.9); Red Blood Count 3.64 M/mm3 (4.2-5.4); White Blood Count 11.3 K/mm3 (4.4-11.0)
[2024-06-09 06:00] VITALS: BP 124/61; PULSE 70; RESP 16; TEMP 36.4; O2SAT 93
[2024-06-09 07:07] LABS: Anion Gap 4 (5-15); BUN 46 mg/dL (7-18); BUN/Creat Ratio 49.1 RATIO (10-20); Chloride 106 mmol/L (98-107); Creatinine, Serum 0.94 mg/dL (0.55-1.02); EST Glomerular Filtration Rate 60 mL/min (>60); Est Glom Filt Rate - Afr Amer 73 mL/min (>60); Estimated Creatinine Clearance 35.08 ml/min; Glucose 118 mg/dL (74-106); Potassium 4.3 mmol/L (3.5-5.1); Sodium Level 135 mmol/L (136-145)
[2024-06-09 07:08] VITALS: BP 124/61; PULSE 70
[2024-06-09] MEDS: levoFLOXacin 250 MG Tablet PO (07:08)
[2024-06-09] MEDS: hydrALAZINE 50 MG Tablet PO ×3 (07:08→20:32)
[2024-06-09] MEDS: Carvedilol 12.5 MG Tablet PO ×2 (08:03→20:33)
[2024-06-09] MEDS: Losartan Potassium 100 MG Tablet PO (08:03)
[2024-06-09] MEDS: RisperiDONE 0.25 MG Tablet PO (08:04)
[2024-06-09] MEDS: Lactobacillis Acidophilus 1 CAP PO (08:04)
[2024-06-09] MEDS: Menthol/Lanolin/Calamine/Znox 113 GM Tube 1 APPLIC TOPICAL ×2 (08:12→20:34)
--- NOTE | 2024-06-09 08:15 | CASEMGMT ---
Social Work SW received call from dtr with additional questions. Dtr requesting referral to [facility]. SW to complete. SW updated dtr that [facility] and [facility] denied pt. Dtr questioned [facility] denial as son toured yesterday and [facility] gave acceptance. SW requested to have son provide this worker with the name of the worker at [facility], and SW to follow up with [facility]. Educated to referral process and once [facility] received information, they denied pt. SW informed dtr that [facility] is reviewing. Dtr inquired further about SNF coverage. SW educated to skilled Medicare benefit, empathizing that any days in the 100 day benefit period are not automatic or guaranteed. Dtr replied, oh, so she could only be covered for two weeks?. SW confirmed. SW explained if pt would need to remain in the SNF beyond that skilled coverage, pt would be private pay. Dtr inquired about Medicaid. SW briefly educated to financial eligibility and SNF would assist further with the spend down process. Dtr appreciative of information. SW to update dtr on outcome of [facility] and [facility] once known. SW will continue to follow. Yusra Hernandez, STRAW HAT PRESSER BACTERIOLOGIST MEDICAL
--- NOTE | 2024-06-09 08:52 | PN.REHAB_ITS ---
Subjective Subjective Patient seen, examined. She is pleasant but admits she is not sure what is going on. Her bowel movement today is formed. Objective Data Objective Data Vital Signs: Vital Signs Temp Pulse Resp BP Pulse Ox O2 Del Method O2 Flow Rate 97.5 F L 70 16 124/61 H 93 Room Air 2 06/09/24 06:00 06/09/24 07:08 06/09/24 06:00 06/09/24 07:08 06/09/24 06:00 06/09/24 06:00 06/06/24 00:00 Oxygen Flow Rate (L/min) 2 Oxygen Delivery Method Room Air Weight: 57.6 kg Body Mass Index (BMI) 24.0 Intake & Output: Intake and Output for Last 24 Hours 06/07/24 06/08/24 06/09/24 23:59 23:59 23:59 Intake Total 1135 / 1135 890 / 920 Output Total 950 / 950 300 / 300 300 / 300 Balance 185 / 185 590 / 620 -270 / -270 Lab / Micro Data 06/09/24 05:41 06/09/24 05:41 Labs: Laboratory Results - last 24 hr 06/09/24 05:41: WBC 11.3 H, RBC 3.64 L, Hgb 9.7 L, Hct 31.9 L, MCV 87.6, MCH 26.6 L, MCHC 30.4 L, RDW Std Deviation 45.7 H, RDW Coeff of Edgar 14.4, Plt Count 288, MPV 9.5, Immature Gran % (Auto) 0.800, Neut % (Auto) 68.0, Lymph % (Auto) 17.8 L, [place] % (Auto) 11.6 H, Eos % (Auto) 1.5, Baso % (Auto) 0.3, Absolute Neuts (auto) 7.7, Absolute Lymphs (auto) 2.00, Nucleated RBC % 0, Sodium 135 L, Potassium 4.3, Chloride 106, Carbon Dioxide 25.0, Anion Gap 4 L, BUN 46 H, Creatinine 0.94, Estim Creat Clear Calc 35.08, Est GFR (MDRD) Af Amer 73, Est GFR (MDRD) Non-Af 60, BUN/Creatinine Ratio 49.1 H, Glucose 118 H, Calcium 9.0 Micro: Microbiology 06/04/24 23:30 Urine, Clean Catch Urine Culture - Final Enterobacter cloacae complex 05/31/24 14:00 Urine, Catheterized Urine Culture - Final Enterobacter cloacae complex 05/30/24 15:50 Urine, Clean Catch Urine Culture - Final Enterobacter cloacae complex 05/31/24 05:45 Stool C. difficile GDH Antigen & Toxins - Final 05/31/24 05:45 Stool Clostridioides difficile (PCR) - Final 05/31/24 05:45 Stool Enteric Bacteriology - Final 05/29/24 15:15 Stool Stool Occult Blood (AHMET) - Final Radiography Diagnostic Testing: Radiology Impression KUB X-Ray 06/08/24 09:10 IMPRESSION: Normal x-ray examination of the abdomen and pelvis. Electronically Signed: Sav Menchaca MD at 12:09 EST , Indicators for Scoring Admitted with or Primary Diagnosis of CVA/Stroke: Yes Hx of CVA/Stroke: Yes Modified [place] Score MRS Score at time of Evaluation: 5-Severe disability Physical Exam Const alert General Appearance: cooperative HEENT normocephalic Eyes PERRL and EOMs intact bilaterally Neck supple, no JVD and no carotid bruits Resp normal respiratory effort, normal air movement and clear to auscultation bilaterally Cardio regular rate and regular rhythm GI normal to inspection, nondistended, normoactive bowel sounds, non-tender and non-distended Extremity normal capillary refill General Extremity: Negative for edema Skin no rashes or lesions noted General Skin Exam: no breakdown Psych affect normal Appearance: appropriate Assessment & Plan Assessment/Plan (1) Debility: (2) Essential (primary) hypertension: (3) Hyperlipidemia: QUALIFIERS: Hyperlipidemia type: unspecified Qualified Code(s): E 78.5 - Hyperlipidemia, unspecified (4) Iron deficiency anemia: QUALIFIERS: Iron deficiency anemia type: unspecified iron deficiency Qualified Code(s): D50.9 - Iron deficiency anemia, unspecified (5) Urinary tract infection: (6) Clostridium difficile colitis: (7) Agitation due to dementia: PLAN: Plan 88 year old female with below past medical history hospitalized for subarachnoid hemorrhage, admitted to [facility] for 3 hours daily of rehabilitation, strengthening, prior to disposition determination. * Debility - PT/OT/ST. * Pain - Tylenol 650mg q6 prn. * Bowel - senna/colace 2 tablets bid prn, Dulcolax 10mg pr x 1 prn, MOM 30mL po x 1 prn. * E. Cloacae UTI - Levaquin 250mg po daily thru 06/11/2024. * C. Diff colitis - Vancomycin 125mg po q6 thru 06/11/2025. * Hyperlipidemia - Atorvastatin 40mg qhs. * Hypertension - Coreg 12.5mg bid, Losartan 100mg daily, Hydralazine 50mg tid, 25mg q4 prn. * Iron deficiency anemia - Ferrous sulfate 325mg q3 days. * Cough - Guaifenesin 10mL po q6h prn. * GI prophylaxis - Lactobacillus 1 capsule daily. * Skin irritation - Calmoseptine topical bid. * Nausea - Zofran odt 4mg q6 prn. * Agitation due to dementia - Risperdal 0.25mg qam, 0.5mg qhs. * Dry nares - ocean spray 1 spray nasal tid prn.
[2024-06-09 13:00] VITALS: BP 112/47
[2024-06-09 13:07] VITALS: BP 112/47; PULSE 67
--- NOTE | 2024-06-09 13:17 | CASEMGMT ---
Addendum entered by Yusra Hernandez 06/09/24 15:31: SW phoned dtr to update on [facility] acceptance and [facility] is still reviewing. Dtr clarified that pt can remain in the SNF beyond skilled care, private pay. SW confirmed and educated that Medicare requires a 3-day notice to issue a DC date from skilled services. Dtr appreciative. Will continue to follow. Original Note: Social Work SW received additional phone call from dtr inquiring further about the reason for denial from [facility]. Dtr stated the pt's son spoke with the linux administrator at [facility] yesterday, and the [facility] told the son the pt was accepted and wanted son to commit to admission. SW explained this worker is unable to provide further clarification as to why [facility] denied, simply provided generic response from [employer] [facility] d/t unable to meet pt's needs and SW encouraged son or dtr to follow up with the [facility]. Dtr continued requesting the reason. Dtr questioned multiple times what this worker was sending to [facility] to deny, and requested to view the paperwork being sent. SW repeatedly responded to dtr that this worker does not give recommendations, suggestions or bias in referral process. The clinical information from the EMR is sent to the facilities to review and make the determination. SW explained there are not additional notes that are given to the SNF with this worker or IDTs opinion on acceptance/denial. SW informed dtr to contact Medical Records Department once pt is discharged to access the clinical information. Dtr again spoke to this worker in blaming nature that this worker influenced [facility]'s decision for denial, questioning why [facility] denied. ALLEN kindly, but firmly replied, that this worker was appreciative of dtr advocating for pt, but this worker does not recommend, suggest or provide any input or notes to the SNFs for a referral, and for dtr to speak further with [facility] on the decision; this worker will not be addressing this questioning further, then inquired what else this worker can assist within this worker's scope. Dtr replied, well you've made it clear that want to end this conversation and terminated the phone call. -- [facility] contacted this worker with acceptance. SW will update dtr. Yusra Hernandez, TYPESETTING SUPERVISOR CHANNEL DEVELOPMENT DIRECTOR
--- NOTE | 2024-06-09 16:12 | CASEMGMT ---
Social Work SW received call from son stating he spoke with Mary at [facility] and that is FOC. SW agreed to finalize DC plans and paperwork for DC 06/16. SW to coordinate transport and will provide final updates in team meeting 06/15. Son appreciative. Son then inquired about the denial with [facility], stating, when I spoke to them, they accepted her, but after they received the referral with your information, they denied her. That would tell me what you told them skewed their decision, wouldn't you say?. SW denied and reiterated as this worker explained to his sister, this worker does not give recommendations, suggestions or include any bias in the referral; it is the facilities decision to accept or deny the patient. Son stated he still has a call into [facility], but did confirm [facility] is [facility]. SW agreed to finalize DC plans. Son inquired about his request at Team to Dr. Hannon about viewing pt's CT scan, but since Dr. Hannon is on vacation until after pt is discharged, if the covering Dr can show him the CT scan. SW unaware of request, but offered to provide son with contact information to medical requests for the CT results. Son replied, It would just be easier if you could pull it up on your computer and show it to me; it would take 30 seconds. I've read thousands. SW denied and educated to medical records request. Son refuted, [facility] did that for me every day. SW replied that [facility] may have different policies than [facility]. Son quickly replied, you know sometimes you guys are really difficult to work with. Thanked this worker and ended phone conversation. SW to complete 7000 and schedule cot transport for DC 06/16 to [facility]. Plan: DC 06/16 to [facility], skilled Yusra Hernandez, CM MCCRARY
[2024-06-09 17:30] VITALS: BP 111/48; PULSE 69; RESP 18; TEMP 36.2; O2SAT 97
[2024-06-09 20:32] VITALS: PULSE 72
[2024-06-09] MEDS: RisperiDONE 0.5 MG Tablet PO (20:33)
[2024-06-09] MEDS: Atorvastatin Calcium 40 MG Tablet PO (20:33)
[2024-06-10] VITALS (7 sets, daily range): BP systolic 106–129; BP diastolic 54–70; PULSE 68–75; RESP 16; TEMP 36.4–36.6; O2SAT 93; BMI 23.6
[2024-06-10] MEDS: levoFLOXacin 250 MG Tablet PO (06:34)
[2024-06-10] MEDS: Vancomycin 125 MG/5 ML Susp PO.SYRINGE PO ×3 (06:34→17:37)
[2024-06-10] MEDS: hydrALAZINE 50 MG Tablet PO ×3 (06:34→20:03)
[2024-06-10] MEDS: Losartan Potassium 100 MG Tablet PO (07:48)
[2024-06-10] MEDS: Menthol/Lanolin/Calamine/Znox 113 GM Tube 1 APPLIC TOPICAL ×2 (07:49→20:08)
[2024-06-10] MEDS: Lactobacillis Acidophilus 1 CAP PO (07:49)
[2024-06-10] MEDS: Carvedilol 12.5 MG Tablet PO ×2 (07:49→20:03)
[2024-06-10] MEDS: RisperiDONE 0.25 MG Tablet PO (07:49)
[2024-06-10] MEDS: 0.9% Saline Lock 10 ML Syringe IV (17:38)
[2024-06-10] MEDS: RisperiDONE 0.5 MG Tablet PO (20:04)
[2024-06-10] MEDS: Atorvastatin Calcium 40 MG Tablet PO (20:04)
[2024-06-11] VITALS (7 sets, daily range): BP systolic 90–161; BP diastolic 47–60; PULSE 59–76; RESP 16–17; TEMP 36.5; O2SAT 94–95
[2024-06-11] MEDS: Acetaminophen 325 MG Tablet 650 MG PO ×2 (00:20→21:09)
[2024-06-11] MEDS: Vancomycin 125 MG/5 ML Susp PO.SYRINGE PO ×2 (00:20→04:21)
[2024-06-11] MEDS: levoFLOXacin 250 MG Tablet PO (04:18)
[2024-06-11] MEDS: hydrALAZINE 50 MG Tablet PO ×2 (04:18→21:07)
--- NOTE | 2024-06-11 08:36 | PN.REHAB_ITS ---
Subjective Subjective Patient seen, examined. She continues to tell me she does not know what is going on, but is oriented to place. Stools are formed. No new complaints. Objective Data Objective Data Vital Signs: Vital Signs Temp Pulse Resp BP Pulse Ox O2 Del Method O2 Flow Rate 97.7 F L 68 16 152/47 H 95 Room Air 2 06/11/24 02:58 06/11/24 04:18 06/11/24 02:58 06/11/24 02:58 06/11/24 02:58 06/11/24 02:58 06/06/24 00:00 Oxygen Flow Rate (L/min) 2 Oxygen Delivery Method Room Air Weight: 56.6 kg Body Mass Index (BMI) 23.6 Intake & Output: Intake and Output for Last 24 Hours 06/09/24 06/10/24 06/11/24 23:59 23:59 23:59 Intake Total 630 / 780 970 / 970 100 / 100 Output Total 700 / 875 775 / 775 400 / 400 Balance -70 / -95 195 / 195 -300 / -300 Lab / Micro Data 06/09/24 05:41 06/09/24 05:41 Micro: Microbiology 06/04/24 23:30 Urine, Clean Catch Urine Culture - Final Enterobacter cloacae complex 05/31/24 14:00 Urine, Catheterized Urine Culture - Final Enterobacter cloacae complex 05/30/24 15:50 Urine, Clean Catch Urine Culture - Final Enterobacter cloacae complex 05/31/24 05:45 Stool C. difficile GDH Antigen & Toxins - Final 05/31/24 05:45 Stool Clostridioides difficile (PCR) - Final 05/31/24 05:45 Stool Enteric Bacteriology - Final 05/29/24 15:15 Stool Stool Occult Blood (AHMET) - Final Indicators for Scoring Admitted with or Primary Diagnosis of CVA/Stroke: Yes Hx of CVA/Stroke: Yes Modified Catherine Score MRS Score at time of Evaluation: 5-Severe disability Physical Exam Const alert General Appearance: cooperative HEENT normocephalic Eyes PERRL and EOMs intact bilaterally Neck supple, no JVD and no carotid bruits Resp normal respiratory effort, normal air movement and clear to auscultation bilaterally Cardio regular rate and regular rhythm GI normal to inspection, nondistended, normoactive bowel sounds, non-tender and non-distended Extremity normal capillary refill General Extremity: Negative for edema Skin no rashes or lesions noted General Skin Exam: no breakdown Psych affect normal Appearance: appropriate Assessment & Plan Assessment/Plan (1) Debility: (2) Essential (primary) hypertension: (3) Hyperlipidemia: QUALIFIERS: Hyperlipidemia type: unspecified Qualified Code(s): E 78.5 - Hyperlipidemia, unspecified (4) Iron deficiency anemia: QUALIFIERS: Iron deficiency anemia type: unspecified iron deficiency Qualified Code(s): D50.9 - Iron deficiency anemia, unspecified (5) Urinary tract infection: (6) Clostridium difficile colitis: (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 * Debility - PT/OT/ST. * Pain - Tylenol 650mg q6 prn. * Bowel - senna/colace 2 tablets bid prn, Dulcolax 10mg pr x 1 prn, MOM 30mL po x 1 prn. * E. Cloacae UTI - Levaquin 250mg po daily thru 06/11/2024. * C. Diff colitis - Vancomycin 125mg po q6 thru 06/11/2024. * Hyperlipidemia - Atorvastatin 40mg qhs. * Hypertension - Coreg 12.5mg bid, Losartan 100mg daily, Hydralazine 50mg tid, 25mg q4 prn. * Iron deficiency anemia - Ferrous sulfate 325mg q3 days. * Cough - Guaifenesin 10mL po q6h prn. * GI prophylaxis - Lactobacillus 1 capsule daily. * Skin irritation - Calmoseptine topical bid. * Nausea - Zofran odt 4mg q6 prn. * Agitation due to dementia - Risperdal 0.25mg qam, 0.5mg qhs. * Dry nares - ocean spray 1 spray nasal tid prn.
[2024-06-11] MEDS: RisperiDONE 0.25 MG Tablet PO (09:00)
[2024-06-11] MEDS: Carvedilol 12.5 MG Tablet PO ×2 (09:01→21:09)
[2024-06-11] MEDS: Lactobacillis Acidophilus 1 CAP PO (09:01)
[2024-06-11] MEDS: Ferrous Sulfate 325 MG Tablet PO (09:01)
[2024-06-11] MEDS: Losartan Potassium 100 MG Tablet PO (09:01)
[2024-06-11] MEDS: Menthol/Lanolin/Calamine/Znox 113 GM Tube 1 APPLIC TOPICAL ×2 (09:05→21:08)
[2024-06-11] MEDS: 0.9% Saline Lock 10 ML Syringe IV ×2 (16:40→21:14)
[2024-06-11] MEDS: Atorvastatin Calcium 40 MG Tablet PO (21:09)
[2024-06-11] MEDS: RisperiDONE 0.5 MG Tablet PO (21:09)
[2024-06-12] VITALS (9 sets, daily range): BP systolic 111–178; BP diastolic 38–68; PULSE 63–79; RESP 17; TEMP 36.4–36.6; O2SAT 94–96
[2024-06-12] MEDS: hydrALAZINE 50 MG Tablet PO (06:48)
[2024-06-12] MEDS: Losartan Potassium 100 MG Tablet PO (08:08)
[2024-06-12] MEDS: RisperiDONE 0.25 MG Tablet PO (08:08)
[2024-06-12] MEDS: Lactobacillis Acidophilus 1 CAP PO (08:09)
[2024-06-12] MEDS: Menthol/Lanolin/Calamine/Znox 113 GM Tube 1 APPLIC TOPICAL ×2 (08:09→20:26)
[2024-06-12] MEDS: Carvedilol 12.5 MG Tablet PO ×2 (08:09→20:21)
[2024-06-12] MEDS: hydrALAZINE 50 MG Tablet 100 MG PO ×2 (13:44→20:22)
[2024-06-12] MEDS: Atorvastatin Calcium 40 MG Tablet PO (20:21)
[2024-06-12] MEDS: RisperiDONE 0.5 MG Tablet PO (20:21)
[2024-06-13] VITALS (8 sets, daily range): BP systolic 101–162; BP diastolic 39–61; PULSE 69–74; RESP 16–18; TEMP 36.5–36.8; O2SAT 95–96
[2024-06-13] MEDS: 0.9% Saline Lock 10 ML Syringe IV ×2 (00:03→22:07)
[2024-06-13] MEDS: hydrALAZINE 50 MG Tablet 100 MG PO ×2 (06:08→22:00)
[2024-06-13] MEDS: Menthol/Lanolin/Calamine/Znox 113 GM Tube 1 APPLIC TOPICAL ×2 (09:13→22:01)
[2024-06-13] MEDS: Carvedilol 12.5 MG Tablet PO ×2 (09:13→22:00)
[2024-06-13] MEDS: Lactobacillis Acidophilus 1 CAP PO (09:13)
[2024-06-13] MEDS: Losartan Potassium 100 MG Tablet PO (09:13)
[2024-06-13] MEDS: RisperiDONE 0.25 MG Tablet PO (09:13)
[2024-06-13] MEDS: Atorvastatin Calcium 40 MG Tablet PO (22:00)
[2024-06-13] MEDS: RisperiDONE 0.5 MG Tablet PO (22:00)
[2024-06-14] VITALS (8 sets, daily range): BP systolic 133–177; BP diastolic 41–67; PULSE 70–79; RESP 17–18; TEMP 36.6; O2SAT 92–94
[2024-06-14] MEDS: hydrALAZINE 50 MG Tablet 100 MG PO ×3 (06:03→21:34)
[2024-06-14] MEDS: Losartan Potassium 100 MG Tablet PO (07:53)
[2024-06-14] MEDS: Menthol/Lanolin/Calamine/Znox 113 GM Tube 1 APPLIC TOPICAL ×2 (07:53→21:44)
[2024-06-14] MEDS: RisperiDONE 0.25 MG Tablet PO (07:53)
[2024-06-14] MEDS: Ferrous Sulfate 325 MG Tablet PO (07:53)
[2024-06-14] MEDS: Carvedilol 12.5 MG Tablet PO ×2 (07:53→21:35)
[2024-06-14] MEDS: Lactobacillis Acidophilus 1 CAP PO (07:53)
[2024-06-14] MEDS: Acetaminophen 325 MG Tablet 650 MG PO ×2 (10:04→21:36)
[2024-06-14] MEDS: Atorvastatin Calcium 40 MG Tablet PO (21:35)
[2024-06-14] MEDS: RisperiDONE 0.5 MG Tablet PO (21:35)
[2024-06-15 05:26] VITALS: BP 150/59; PULSE 71; RESP 18; TEMP 36.4; O2SAT 93
[2024-06-15 05:28] VITALS: BP 150/59; PULSE 71
[2024-06-15] MEDS: hydrALAZINE 50 MG Tablet 100 MG PO ×3 (05:28→19:54)
--- NOTE | 2024-06-15 07:47 | DS.PCM_ITS ---
Providers Date of Admission: 05/28/24 Primary Care Physician: No Primary Care Phys Reason For Visit: LEFT PARIETAL OCCIPITAL IPH Diagnosis Discharge Diagnosis (1) Debility: Status: Acute Code(s): R53.81 - Other malaise (2) Essential (primary) hypertension: Status: Acute Code(s): I10 - Essential (primary) hypertension (3) Hyperlipidemia: Status: Acute Code(s): E78.5 - Hyperlipidemia, unspecified Qualifiers: Hyperlipidemia type: unspecified Qualified Code(s): E78.5 - Hyperlipidemia, unspecified (4) Iron deficiency anemia: Status: Acute Code(s): D50.9 - Iron deficiency anemia, unspecified Qualifiers: Iron deficiency anemia type: unspecified iron deficiency Qualified Code(s): D50.9 - Iron deficiency anemia, unspecified (5) Urinary tract infection: Status: Acute Code(s): N39.0 - Urinary tract infection, site not specified (6) Clostridium difficile colitis: Status: Acute Code(s): A04.72 - Enterocolitis due to Clostridium difficile, not specified as recurrent (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 * Debility - PT/OT/ST. * Pain - Tylenol 650mg q6 prn. * Bowel - senna/colace 2 tablets bid prn, Dulcolax 10mg pr x 1 prn, MOM 30mL po x 1 prn. * E. Cloacae UTI - Levaquin 250mg po daily thru 06/11/2024. * C. Diff colitis - Vancomycin 125mg po q6 thru 06/11/2024. * Hyperlipidemia - Atorvastatin 40mg qhs. * Hypertension - Coreg 12.5mg bid, Losartan 100mg daily, Hydralazine 50mg tid, 25mg q4 prn. * Iron deficiency anemia - Ferrous sulfate 325mg q3 days. * Cough - Guaifenesin 10mL po q6h prn. * GI prophylaxis - Lactobacillus 1 capsule daily. * Skin irritation - Calmoseptine topical bid. * Nausea - Zofran odt 4mg q6 prn. * Agitation due to dementia - Risperdal 0.25mg qam, 0.5mg qhs. * Dry nares - ocean spray 1 spray nasal tid prn. Medications at Discharge Home Medications atorvastatin 40 mg tablet 40 mg PO QHS Cholestrol 05/28/24 carvedilol 12.5 mg tablet (Coreg) 12.5 mg PO BID BP 05/28/24 ondansetron 4 mg disintegrating tablet 4 mg PO Q6H PRN nausea and vomiting 05/28/24 L.acidophil,salivari-Bifido bifidum-Strep thermoph 175 mg capsule 1 cap PO DAILY #0 caps 06/15/24 acetaminophen 325 mg tablet 650 mg (2 x 325 mg) PO Q6H PRN PRN Pain Score 6-10 #0 tabs 06/15/24 ferrous sulfate 325 mg (65 mg iron) tablet (FeroSul) 325 mg PO Q3D@0800 #0 tabs 06/15/24 hydralazine 25 mg tablet 25 mg PO Q4H PRN Sys>160 DIAST>85 #0 tabs 06/15/24 hydralazine 50 mg tablet 100 mg (2 x 50 mg) PO TID #0 tabs 06/15/24 losartan 100 mg tablet 100 mg PO DAILY #0 tabs 06/15/24 menthol 0.44 %-zinc oxide 20.6 % topical ointment (Calmoseptine) 1 applic topical BID #0 grams 06/15/24 risperidone 0.25 mg tablet 0.25 mg PO DAILY #0 tabs 06/15/24 risperidone 0.5 mg tablet 0.5 mg PO 2200 #0 tabs 06/15/24 sennosides 8.6 mg-docusate sodium 50 mg tablet (Stimulant Laxative Plus) 2 tab PO BID PRN Constipation #0 tabs 06/15/24 sodium chloride 0.65 % nasal spray aerosol (Deep Sea Nasal) 1 spray NASAL TID PRN PRN NASAL DRYNESS #0 mL 06/15/24 Hospital Course Operations None Procedures None Summary of Care Provided Minutes Spent on Discharge: 35 Hospital Course: 88 year old female with below past medical history hospitalized for subarachnoid hemorrhage, admitted to for 3 hours daily of rehabilitation, strengthening, prior to disposition determination. Discharge 06/16/[address] [facility], skilled. Physical Exam Const alert General Appearance: cooperative HEENT normocephalic Eyes PERRL and EOMs intact bilaterally Neck supple, no JVD and no carotid bruits Resp normal respiratory effort, normal air movement and clear to auscultation bilaterally Cardio regular rate and regular rhythm GI normal to inspection, nondistended, normoactive bowel sounds, non-tender and non-distended Extremity normal capillary refill General Extremity: Negative for edema Skin no rashes or lesions noted General Skin Exam: no breakdown Psych affect normal Appearance: appropriate Weight / BMI Weight Weight: 56.6 kg Body Mass Index (BMI) 23.6 ABG / Lab / Microbiology Data 06/09/24 05:41 06/09/24 05:41 Microbiology: Microbiology 06/04/24 23:30 Urine, Clean Catch Urine Culture - Final Enterobacter cloacae complex 05/31/24 14:00 Urine, Catheterized Urine Culture - Final Enterobacter cloacae complex 05/30/24 15:50 Urine, Clean Catch Urine Culture - Final Enterobacter cloacae complex 05/31/24 05:45 Stool C. difficile GDH Antigen & Toxins - Final 05/31/24 05:45 Stool Clostridioides difficile (PCR) - Final 05/31/24 05:45 Stool Enteric Bacteriology - Final 05/29/24 15:15 Stool Stool Occult Blood (AHMET) - Final Indicators for Scoring Admitted with or Primary Diagnosis of CVA/Stroke: Yes Hx of CVA/Stroke: Yes Modified [place] Score MRS Score at time of Evaluation: 5-Severe disability D/C Instructions Discharge Diet: No restrictions Discharge Activity: Return to Normal Activity, May Shower and Use Walker Weight Bearing Status: Weight bearing as tolerated Call your doctor if you observe: Fever of 101 or Higher, Inability to urinate, Inability to have a bowel movement, Shortness of breath, Dizziness, Fainting spells, Swelling in the ankles, Chest pain and Uncontrolled pain DC O2, CPAP, BIPAP Needs Home O2 Discharge instructions: No Additional Instructions: Discharge 06/16/[address] [facility], skilled. Meaningful Use Info Meaningful Use Meaningful Use Diagnoses (Choose all that apply): Hemorrhagic CVA CVA Therapy Assessed for PT,OT and/or ST?: Yes Ischemic Stroke Statin Dosing Therapy Reference: STATIN DOSE THERAPY REFERENCE: * Patients > 75 years receive moderate or high dose statin therapy. * Patients 75 years or YOUNGER should receive HIGH intensity statin dose unless contraindicated. You will be required to document reason for non-treatment if statin daily dose does not meet guidelines. HIGH DOSE STATIN THERAPY DAILY Atorvastatin > than or = to 40 mg Rosuvastatin > than or = to 20 mg Amlodipine + Atorvastatin > than or = to 2.5/40 mg Ezetimibe + Simvastatin 10/80 mg Simvastatin 80mg Discharge Plan Admission Admit Date/Time: 05/28/24 16:34 Primary Reason for Your Visit: Debility. Attending Provider: Jen Hannon Primary Care Provider: Care Physician,No Primary Instructions Additional Instructions / Restrictions: Discharge 06/16/[address] [facility], skilled. Discharge Orders/Prescriptions Prescriptions: New acetaminophen 325 mg Tablet 650 mg PO Q6H PRN PRN (Reason: Pain Score 6-10) Qty: 0 0RF sennosides-docusate sodium [Stimulant Laxative Plus] 8.6-50 mg Tablet 2 tab PO BID PRN (Reason: Constipation) Qty: 0 0RF hydralazine 25 mg Tablet 25 mg PO Q4H PRN (Reason: Sys>160 DIAST>85) Qty: 0 0RF risperidone 0.25 mg Tablet 0.25 mg PO DAILY Qty: 0 0RF ferrous sulfate [FeroSul] 325 mg (65 mg iron) Tablet 325 mg PO Q3D@0800 Qty: 0 0RF hydralazine 50 mg Tablet 100 mg PO TID Qty: 0 0RF losartan 100 mg Tablet 100 mg PO DAILY Qty: 0 0RF risperidone 0.5 mg Tablet 0.5 mg PO 2200 Qty: 0 0RF Deep Sea Nasal 0.65 % Aerosol,[place] 1 spray NASAL TID PRN PRN (Reason: NASAL DRYNESS) Qty: 0 0RF L.acidoph,saliva-B.bif-S.therm 175 mg Capsule 1 cap PO DAILY Qty: 0 0RF menthol-zinc oxide [Calmoseptine] 0.44-20.6 % Ointment 1 applic topical BID Qty: 0 0RF Protocol: *Topical Application Instructions APPLICATION INSTRUCTIONS: Apply to buttock Continued atorvastatin 40 mg tablet 40 mg PO QHS carvedilol [Coreg] 12.5 mg tablet 12.5 mg PO BID Rx Instructions: must administer with a meal/food ondansetron 4 mg tablet,disintegrating 4 mg PO Q6H PRN (Reason: nausea and vomiting) Discontinued losartan [Cozaar] 25 mg tablet 25 mg PO DAILY Referrals / Follow Up: Care Physician,No Primary [Primary Care Provider] - Disposition Disposition (needs filled in before D/C Order can be placed): [facility]
--- NOTE | 2024-06-15 07:53 | TREXTCAR_ITS ---
Diet Diet Order/Speech Therapy: 05/28/24 17:10 Diet: Regular - General Food consistency:: Regular Liquid Consistency:: Regular/Thin Type of Dietary Supplement:: Ensure Plus High Protein Diet Comments: 8 oz EPHP tid w/ meals Routine Orders/Code Status Code Status: DNRCC-A (No intubation.) DC O2, CPAP, BIPAP needs Home O2 Discharge instructions: No Therapies Weight Bearing: Weight bearing as tolerated Extremity Affected:: Bilateral Lower Physical Therapy: Eval and Treat Occupational Therapy: Eval and Treat Speech Therapy: Eval and Treat Problem/Diagnosis (1) Debility: Status: Acute Code(s): R53.81 - Other malaise (2) Essential (primary) hypertension: Status: Acute Code(s): I10 - Essential (primary) hypertension (3) Hyperlipidemia: Status: Acute Code(s): E78.5 - Hyperlipidemia, unspecified (4) Iron deficiency anemia: Status: Acute Code(s): D50.9 - Iron deficiency anemia, unspecified (5) Urinary tract infection: Status: Acute Code(s): N39.0 - Urinary tract infection, site not specified (6) Clostridium difficile colitis: Status: Acute Code(s): A04.72 - Enterocolitis due to Clostridium difficile, not specified as recurrent (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 * Debility - PT/OT/ST. * Pain - Tylenol 650mg q6 prn. * Bowel - senna/colace 2 tablets bid prn, Dulcolax 10mg pr x 1 prn, MOM 30mL po x 1 prn. * E. [place] UTI - Levaquin 250mg po daily thru 06/11/2024. * C. Diff colitis - Vancomycin 125mg po q6 thru 06/11/2024. * Hyperlipidemia - Atorvastatin 40mg qhs. * Hypertension - Coreg 12.5mg bid, Losartan 100mg daily, Hydralazine 50mg tid, 25mg q4 prn. * Iron deficiency anemia - Ferrous sulfate 325mg q3 days. * Cough - Guaifenesin 10mL po q6h prn. * GI prophylaxis - Lactobacillus 1 capsule daily. * Skin irritation - Calmoseptine topical bid. * Nausea - Zofran odt 4mg q6 prn. * Agitation due to dementia - Risperdal 0.25mg qam, 0.5mg qhs. * Dry nares - ocean spray 1 spray nasal tid prn. Allergies/Procedures Done in Hospital Allergies erythromycin base Allergy (Mild, Verified 09/30/20 11:08) rash piperacillin (From Zosyn) Allergy (Verified 09/30/20 11:08) Rash tazobactam (From Zosyn) Allergy (Verified 09/30/20 11:08) Rash Procedures: None Type of Care/Length of Stay Estimated LOS: Convalescent Care Less Than 30 days Type of Care Needed: Skilled Rehab Potential: Fair Prognosis: Fair Additional Orders/Day of Discharge Day of Discharge: 06/16/24 Dietary and Speech Recommendations Dietitian Recommendations/Changes: Continue regular diet and 240ml ensure plus high protein TID with meals. Will monitor weight, as available. Reviewed and approved by Sushma Donohue RDN, LD. Discharge Plan Admission Admit Date/Time: 05/28/24 16:34 Primary Reason for Your Visit: Debility. Attending Provider: Jen Hannon Primary Care Provider: Care Physician,Abbi Primary Instructions Additional Instructions / Restrictions: Discharge 06/16/2024 to [facility], skilled. Discharge Orders/Prescriptions Prescriptions: New acetaminophen 325 mg Tablet 650 mg PO Q6H PRN PRN (Reason: Pain Score 6-10) Qty: 0 0RF sennosides-docusate sodium [Stimulant Laxative Plus] 8.6-50 mg Tablet 2 tab PO BID PRN (Reason: Constipation) Qty: 0 0RF hydralazine 25 mg Tablet 25 mg PO Q4H PRN (Reason: Sys>160 DIAST>85) Qty: 0 0RF risperidone 0.25 mg Tablet 0.25 mg PO DAILY Qty: 0 0RF ferrous sulfate [FeroSul] 325 mg (65 mg iron) Tablet 325 mg PO Q3D@0800 Qty: 0 0RF hydralazine 50 mg Tablet 100 mg PO TID Qty: 0 0RF losartan 100 mg Tablet 100 mg PO DAILY Qty: 0 0RF risperidone 0.5 mg Tablet 0.5 mg PO 2200 Qty: 0 0RF [place] Nasal 0.65 % Aerosol,[place] 1 spray NASAL TID PRN PRN (Reason: NASAL DRYNESS) Qty: 0 0RF L.acidoph,saliva-B.bif-S.therm 175 mg Capsule 1 cap PO DAILY Qty: 0 0RF menthol-zinc oxide [Calmoseptine] 0.44-20.6 % Ointment 1 applic topical BID Qty: 0 0RF Protocol: *Topical Application Instructions APPLICATION INSTRUCTIONS: Apply to buttock Continued atorvastatin 40 mg tablet 40 mg PO QHS carvedilol [Coreg] 12.5 mg tablet 12.5 mg PO BID Rx Instructions: must administer with a meal/food ondansetron 4 mg tablet,disintegrating 4 mg PO Q6H PRN (Reason: nausea and vomiting) Discontinued losartan [Cozaar] 25 mg tablet 25 mg PO DAILY Referrals / Follow Up: Care Physician,No Primary [Primary Care Provider] - Disposition Disposition (needs filled in before D/C Order can be placed): Long-Term Facility (3) Hyperlipidemia Qualifiers: Hyperlipidemia type: unspecified Qualified Code(s): E78.5 - Hyperlipidemia, unspecified (4) Iron deficiency anemia Qualifiers: Iron deficiency anemia type: unspecified iron deficiency Qualified Code(s): D50.9 - Iron deficiency anemia, unspecified
--- NOTE | 2024-06-15 08:06 | CASEMGMT ---
Social Work IDT met with patient, and dtr for Team meeting. Discussed patient's progress in PT/OT/ST/SN. Confirmed DC plans for 06/16 to [facility], skilled. Transport scheduled for p/u 1100. sent DC orders and 7000 completed. Yusra Hernandez RN MANAGER CALCULUS PROFESSOR
[2024-06-15] MEDS: Losartan Potassium 100 MG Tablet PO (09:25)
[2024-06-15] MEDS: Lactobacillis Acidophilus 1 CAP PO (09:25)
[2024-06-15] MEDS: Menthol/Lanolin/Calamine/Znox 113 GM Tube 1 APPLIC TOPICAL ×2 (09:25→19:55)
[2024-06-15] MEDS: RisperiDONE 0.25 MG Tablet PO (09:25)
[2024-06-15] MEDS: Carvedilol 12.5 MG Tablet PO ×2 (09:25→19:55)
[2024-06-15 13:42] VITALS: BP 127/58; PULSE 69
[2024-06-15 17:18] VITALS: BP 124/40; PULSE 71; RESP 17; TEMP 36.8; O2SAT 94
[2024-06-15 19:54] VITALS: BP 128/49; PULSE 77
[2024-06-15] MEDS: Atorvastatin Calcium 40 MG Tablet PO (19:56)
[2024-06-15] MEDS: Acetaminophen 325 MG Tablet 650 MG PO (19:56)
[2024-06-15] MEDS: RisperiDONE 0.5 MG Tablet PO (19:56)
[2024-06-16 05:25] VITALS: BP 154/58; PULSE 77
[2024-06-16] MEDS: hydrALAZINE 50 MG Tablet 100 MG PO (05:25)
[2024-06-16] MEDS: Acetaminophen 325 MG Tablet 650 MG PO (05:26)
[2024-06-16 05:50] VITALS: BP 154/58; PULSE 77; RESP 16; TEMP 36.9; O2SAT 95
[2024-06-16] MEDS: Losartan Potassium 100 MG Tablet PO (09:06)
[2024-06-16] MEDS: RisperiDONE 0.25 MG Tablet PO (09:06)
[2024-06-16] MEDS: Carvedilol 12.5 MG Tablet PO (09:06)
[2024-06-16] MEDS: Lactobacillis Acidophilus 1 CAP PO (09:06)
[2024-06-16] MEDS: Menthol/Lanolin/Calamine/Znox 113 GM Tube 1 APPLIC TOPICAL (09:11)
[2024-06-16] MEDS: Haloperidol Lactate 5 MG/ML Vial 1 MG IM (10:17)
--- NOTE | 2024-06-16 11:37 | NURSING ---
discharged to [facility]. Report called to Ericka
[2024-06-16 11:38] VITALS: BP 154/58; PULSE 77; RESP 16; TEMP 36.9; O2SAT 95
== END 2024-06-16 11:39 | disposition skilled nursing facility (03) | DRG 57 ==
PROVIDERS: Admitting Provider Internal Medicine; Referring Provider Internal Medicine; Visit Provider Internal Medicine
DX: I69.151 Hemiplegia and hemiparesis following nontraumatic intracerebral hemorrhage affecting right dominant side (principal); A04.72 Enterocolitis due to Clostridium difficile, not specified as recurrent; E85.4 Organ-limited amyloidosis; F03.C11 Unspecified dementia, severe, with agitation; N10 Acute pyelonephritis; Z66 Do not resuscitate; I10 Essential (primary) hypertension; D50.9 Iron deficiency anemia, unspecified; I68.0 Cerebral amyloid angiopathy; E78.5 Hyperlipidemia, unspecified; I69.192 Facial weakness following nontraumatic intracerebral hemorrhage; B96.89 Other specified bacterial agents as the cause of diseases classified elsewhere; Z79.899 Other long term (current) drug therapy; R73.02 Impaired glucose tolerance (oral)
CPT/HCPCS: 36415; 70470; 71046; 74018; 80048; 80053; 80061; 81001; 82274; 82607; 82728; 82962; 83036; 83540; 83550; 83735; 83880; 83930; 83935; 84100; 84300; 84443; 85025; 85027; 87077; 87086; 87088; 87186; 87493; 87506; 92507; 92523; 92610; 97110; 97112; 97129; 97130; 97140; 97162; 97166; 97530; 97535; 97803; Q9967; A4216; J2916

== ENCOUNTER → 2024-07-10 | Outpatient (CLI) | payer MEDICARE, OTHER, SELFPAY | END | disposition home or self-care (01) | PROVIDERS: PCP Family Medicine; Referring Provider Family Medicine; Visit Provider Family Medicine | DX: K52.9 Noninfective gastroenteritis and colitis, unspecified (principal) ==

== ENCOUNTER 2024-07-30 09:48 | Inpatient (IN) | payer MEDICARE, OTHER, SELFPAY ==
[2024-07-30 09:50] VITALS: BP 152/62; PULSE 78; RESP 20; TEMP 36.6; O2SAT 91; BMI 22.8
--- NOTE | 2024-07-30 10:09 | CT_ITS ---
EXAM: CT scan of the head without intravenous contrast administration. CLINICAL HISTORY: Increasing weakness. Failure to thrive. COMPARISON: Comparison is made with prior study dated June 04, 2024. TECHNIQUE: Multiple axial tomographic images were obtained without intravenous contrast administration. Coronal and sagittal reconstruction was obtained as well. FINDINGS: Moderate degree of diffuse cerebral atrophy. There is evidence of a focal encephalomalacia in the posterior left parietal occipital lobes. On prior study, intra cerebral hematoma was present at that site. Diffuse periventricular white matter disease in keeping with chronic ischemic changes. CT/Brain/Head without Contrast IMPRESSION: Moderate degree of cerebral atrophy. Focal encephalomalacia in the posterior left parietal occipital lobes as descri bed. This most likely sequela to prior intracerebral hematoma. No significant mass effect is seen. No acute abnormal ity is seen. Reading Location: [id number]
--- NOTE | 2024-07-30 10:11 | EKG12_ITS ---
Test Reason : Blood Pressure : */* mmHG Vent. Rate : 78 BPM Atrial Rate : * BPM P-R Int : * ms QRS Dur : 72 ms QT Int : 372 ms P-R-T Axes : * -20 -75 degrees QTcB Int : 424 ms Accelerated Junctional rhythm with Premature supraventricular complexes Cannot rule out Anterior infarct , age undetermined Abnormal ECG Confirmed by NIKKO ESCUDERO ([id number]), metropolitan editor MARTINEZ DODD ([id number]) on 08/03/2024 7:12:38 AM Referred By: Confirmed By: NIKKO ESCUDERO
--- NOTE | 2024-07-30 11:04 | EX.ED.DYSGE1 ---
HPI History of Present Illness Chief Complaint: General Illness Informant: patient Narrative Narrative: Patient is an 88-year-old female with history of cerebral amyloid angiopathic, hypertension, hyperlipidemia and prior subarachnoid hemorrhage with residual right-sided deficits as well as dementia. She is presenting from home with her for concern of weakness, debility and inability for him to take care of her at home. Patient initially was transferred to [facility] and then from there went to the [facility]CU for 18 days per her . She was at [facility] for few days and then has been home for the past month or so. states that overall she had been doing well and was able to assist with transfers and getting to the bathroom however she has been worsening over the last week. He notes that she continues to have stool incontinence and has been having diarrhea. Chart review does show that patient did have C. difficile that was treated with oral vancomycin. Patient is at her cognitive baseline per her . He states that she does not really want to eat or drink anything. Is a hard time giving her her medications. does note that he thought he might of seen blood in some of her stool. [facility] Medical History Non-smoker Stroke/cerebrovascular accident Subarachnoid hemorrhage Hyperlipidemia HTN (hypertension) Colon cancer Home Medications ?Medication ?Instructions ?Recorded ?Last Taken ?Type losartan 100 mg tablet 100 mg PO DAILY #0 tabs 06/15/24 07/30/24 Rx carvedilol 6.25 mg tablet 6.25 mg PO BID 07/30/24 07/30/24 History folic acid 1 mg tablet 1,000 mcg PO DAILY 07/30/24 Unknown History hydralazine 50 mg tablet 50 mg PO TID 07/30/24 Unknown History Held on 07/30/24. Instructions: MD Ordered mecobalamin (vitamin B12) 1,000 1,000 mcg PO DAILY 07/30/24 Unknown History mcg lozenges Allergy/AdvReac Type Severity Reaction Status Date / Time erythromycin base Allergy Mild rash Verified 07/30/24 09:55 piperacillin (From Zosyn) Allergy Rash Verified 07/30/24 09:55 tazobactam (From Zosyn) Allergy Rash Verified 07/30/24 09:55 Family History Mother No problems noted. Family History no significant family his Surgical History S/P colonoscopy S/P colectomy Social History Smoking Status: Never smoker ROS ROS ED Review of Systems ROS Unobtainable: due to mental status EXAM Physical Exam Const Vital Signs: 07/30/24 09:50 Temperature 98 F Temperature Source Temporal Pulse Rate 78 Respiratory Rate 20 H Blood Pressure 152/62 H Blood Pressure Mean 92 Pulse Ox 91 Oxygen Delivery Method Room Air Positive well nourished and well developed General Appearance ED: well developed and NAD; Negative for pallor HEENT Reports dry mucous membranes Mouth ED: Yes dry mucous membranes Mouth: dry mucous membranes Eyes PERRL and EOMs intact bilaterally Neck supple and no JVD Chest Wall inspection of chest normal and palpation of chest normal Resp normal respiratory effort and clear to auscultation bilaterally Cardio regular rate, regular rhythm and no murmurs GI normal to inspection, nondistended, normoactive bowel sounds, non-tender and non-distended GI Narrative: Patient does not have pain when palpating the abdomen but will shout out it is cold as her abdomen is exposed to the air. Auscultation: normoactive bowel sounds Extremity normal to inspection General Extremety ED: Negative for edema General Extremity: Negative for edema Neuro Neuro Narrative: Oriented to self. At baseline. Right-sided deficits?chronic from prior stroke. Patient does not cooperate with further neurologic exam. Motor Exam: general weakness Psych Attitude: agitated Skin no rashes or lesions noted and no wounds General Skin Exam: Negative for pallor MDM MDM MDM Narrative Medical decision making narrative: Patient is an 88-year-old female with history of dementia and prior subarachnoid hemorrhage with residual right-sided weakness. As she is presenting today for 1 week of progressive weakness. and then son state that she had actually been improving and was becoming more independent. Over the last week she has significantly worsened. She is also been having reported stool incontinence. (whom she lives with with no one else) is concerned that he can no longer provide the care that she needs. She brought her in for further evaluation. On exam patient is agitated but no acute distress. Hemodynamically stable. Does clinically appear dehydrated. Differential includes recurrent stroke (however she does not appear to have any focal neurologic deficits but is more encephalopathic), dehydration, CATHY, pneumonia, influenza/COVID, urinary tract infection, C. difficile colitis (does have a history of C. difficile and was treated about 2 months ago for this). Her abdomen is soft so I do not think she requires a CT of abdomen pelvis at this time. Patient is given IV fluids. Workup is remarkable for leukocytosis with normal lactate. She also appears to have an CATHY with a creatinine 1.54 (baseline of 1.0). She is hyponatremic with a sodium of 146 and mildly hyperchloremic with a chloride of 112. This is consistent with report of her not eating or drinking and her appearing dehydrated. Urinalysis is not consistent with infection. She does have a stable anemia. No suspicion for acute blood loss or symptomatic anemia. CT of the brain does not show any acute process. Chest x-ray reviewed by myself as well as radiology does not show any acute process. There is report of mild degree of vascular congestion and cardiomegaly however patient is on room air and clinically appears dehydrated not fluid overloaded. Patient does have diarrhea in the room and stool sample sent. It is positive for white blood cells in the stool but C. difficile and stool studies pending at time of disposition. Patient's spouse and son are informed of findings up to this point and plan for admission. Case is discussed with hospitalist, Dr. Torrez. At time of signing this note patient did test positive for C. difficile however her toxin was negative with a positive antigen. I do suspect this could be the cause of her progressive weakness over the past week, leukocytosis and diarrhea. Lab Data Attestation: I reviewed the patient's lab results. Labs: Laboratory Results - last 24 hr 07/30/24 07/30/24 10:20 11:50 WBC 15.3 H RBC 3.56 L Hgb 9.7 L Hct 31.4 L MCV 88.2 MCH 27.2 MCHC 30.9 L RDW Std Deviation 46.1 H RDW Coeff of Edgar 14.3 Plt Count 280 MPV 9.3 Immature Gran % (Auto) 1.000 H Neut % (Auto) 83.6 H Lymph % (Auto) 6.7 L Owen % (Auto) 7.7 Eos % (Auto) 0.3 Baso % (Auto) 0.7 Absolute Neuts (auto) 12.8 H Absolute Lymphs (auto) 1.03 Nucleated RBC % 0 Differential Comment S Sodium 146 H Potassium 3.8 Chloride 112 H Carbon Dioxide 28.0 Anion Gap 6 BUN 46 H Creatinine 1.54 H Estim Creat Clear Calc 19.79 Est GFR (MDRD) Af Amer 41 L Est GFR (MDRD) Non-Af 34 L BUN/Creatinine Ratio 29.9 H Glucose 113 H Calcium 9.0 Total Bilirubin 0.50 AST 12 L ALT 22 Alkaline Phosphatase 87 Total Protein 7.1 Albumin 2.1 L Globulin 5.0 H Albumin/Globulin Ratio 0.4 L Urine Color Yellow Urine Clarity Clear Urine pH 6.0 Ur Specific [place] 1.015 Urine Protein 30 H Urine Glucose (UA) Normal Urine Ketones Negative Urine Occult Blood 10 H Urine Nitrite Negative Urine Bilirubin Negative Urine Urobilinogen Normal Ur Leukocyte Esterase 25 H Urine RBC 0-5 SEEN Urine WBC 0-5 SEEN Ur Squamous Epith Cells 0 SEEN Urine Bacteria 4+ Urine Mucus 0 SEEN Radiography Diagnostic Testing: Clinical Impression(s) from Imaging Studies Brain CT 07/30/24 10:09 IMPRESSION: Moderate degree of cerebral atrophy. Focal encephalomalacia in the posterior left parietal occipital lobes as described. This most likely sequela to prior intracerebral hematoma. No significant mass effect is seen. No acute abnormality is seen. Reading Location: [id number] Chest X-Ray 07/30/24 11:15 IMPRESSION: Mild cardiomegaly. Mild vascular congestion and CHF. Reading Location: [id number] Rhythm Strip Rhythm Strip: Sinus Rhythm Rate: 78 Ectopy: None EKG Initial EKG: Attestation: I personally reviewed and interpreted this EKG as follows: Interpretation: Sinus Rhythm Comments: Normal sinus rhythm at a rate of 86 beats per minutes with a lot of artifact Normal axis Normal intervals Normal ST segments Management Discussion w/another healthcare provider: Hospitalist Discharge Plan Dx/Rx/DC Orders Clinical Impression: Dementia, Physical debility, CATHY (acute kidney injury), Leukocytosis, Diarrhea Disposition Disposition: Acute Care Hospital [facility] Discharge Date/Time: 07/30/24 14:56
--- NOTE | 2024-07-30 11:15 | RAD_ITS ---
PROCEDURE: CHEST 1 VIEW (PORTABLE) REASON FOR EXAM: Failure to thrive. Prior CVA. TECHNIQUE: Frontal view of the chest. COMPARISON: Comparison is made with prior study dated May 31, 2024. FINDINGS: EKG electrodes are seen. Mild cardiomegaly. Calcification of the aortic arch. Mild degree of vascular congestion. Mild basilar atelectasis. RAD/Chest 1 View (Portable) IMPRESSION: Mild cardiomegaly. Mild vascular congestion and CHF. Reading Location: [facility]
[2024-07-30 12:03] LABS: Mucous, Urine 0 SEEN /hpf (<or=2+); Squamous Epithelial Cells - UA 0 SEEN /hpf (5-10)
[2024-07-30 12:11] LABS: Color, Urine Yellow (Yellow); Glucose, Dipstick Normal (Normal); Ketone-Dipstick Negative (Negative); Leukocyte Esterase-Dipstick 25 /ul (Negative); Nitrite-Dipstick Negative (Negative); Occult Blood-Urine 10 /ul (Negative); Protein-Dipstick 30 mg/dl (Negative); Specific Gravity, Urine 1.015 (1.002-1.030); Urine Bilirubin Dipstick Negative (Negative); Urine Clarity Clear (Clear); Urine Urobilinogen Normal (Normal)
[2024-07-30] MEDS: 0.9% Normal Saline (1000mL) 1,000 ML 1000 ML IV (12:11)
[2024-07-30 12:24] LABS: Bacteria 4+ /hpf (None Seen); Red Blood Cells-Urine 0-5 SEEN /hpf (0-5); White Blood Cells 0-5 SEEN /hpf (0-5)
[2024-07-30 12:57] LABS: Absolute Lymphocyte Count 1.03 X10^3/uL (0.83-4.51); Absolute Neutrophil Count 12.8 X10^3/uL (2.0-7.7); Basophil% 0.7 % (0-1); Eosinophil# 0.04 X10^3/uL; Eosinophils% 0.3 % (0-5); Hematocrit 31.4 % (37-47); Hemoglobin 9.7 g/dL (12.0-15.0); Lymphocyte # 1.03 X10^3/ul (0.83-4.51); Lymphocyte % 6.7 % (19-41); Mean Corp Hgb Conc 30.9 g/dL (32-36); Mean Corpuscular Hgb 27.2 pg (27.0-32.0); Mean Corpuscular Volume 88.2 fL (81-99); Mean Platelet Vol. 9.3 fl (6.2-12.0); Monocyte# 1.18 X10^3/uL; Monocyte% 7.7 % (0-10); NRBC Flagged by Analyzer 0 % (0-5); Neutrophil # 12.83 X10^3/uL (2.7-7.7); Neutrophil % 83.6 % (47-70); POSITIVE MORPHOLOGY YES; Platelet Count 280 K/mm3 (150-450); RBC Distribution Width CV 14.3 % (11.6-14.6); RBC Distribution Width SD 46.1 fl (35.1-43.9); Red Blood Count 3.56 M/mm3 (4.2-5.4); White Blood Count 15.3 K/mm3 (4.4-11.0)
[2024-07-30 12:59] LABS: Differential Indicated SCAN CRITERIA MET
[2024-07-30 13:21] LABS: ALB/GLOB Ratio 0.4 RATIO (0.9-2.4); AST(SGOT) 12 U/L (15-37); Alanine Aminotransfer ALT/SGPT 22 U/L (13-56); Albumin, Serum 2.1 g/dL (3.2-5.0); Alkaline Phosphatase 87 U/L (45-117); Anion Gap 6 (5-15); BUN 46 mg/dL (7-18); BUN/Creat Ratio 29.9 RATIO (10-20); Chloride 112 mmol/L (98-107); Creatinine, Serum 1.54 mg/dL (0.55-1.02); EST Glomerular Filtration Rate 34 mL/min (>60); Est Glom Filt Rate - Afr Amer 41 mL/min (>60); Estimated Creatinine Clearance 19.79 ml/min; Glucose 113 mg/dL (74-106); Potassium 3.8 mmol/L (3.5-5.1); Protein, Total 7.1 g/dL (6.4-8.2); Sodium Level 146 mmol/L (136-145)
[2024-07-30 13:47] VITALS: BP 142/61; O2SAT 92
[2024-07-30 13:48] VITALS: BP 142/61; PULSE 77; RESP 22; TEMP 36.6; O2SAT 92
[2024-07-30 13:51] LABS: Differential Comment S
--- NOTE | 2024-07-30 14:06 | PCM.HP.STD ---
HPI - General General Date of Admission: 07/30/24 Date of Service: 07/30/24 Chief Complaint: Altered mental status, acute on chronic decline HPI Narrative MUNDO LOVE, is a 88 F was brought to ED for change in mental status and decline in physical and mental health. Patient had subarachnoid hemorrhage with residual right-sided deficit on 05/22/2024 when she was transferred to [facility]. From there she had acute rehab and was discharged home 06/15/2024. As per her who is the sole caregiver, she has been declining in last 1 month and required more support. She walked 1-2 times on her home but other times she required support. She also poor appetite with very less oral intake in the last 1 week. For the last 48 hours, she also noticed more confused and irritable disoriented. Her says he cannot take care of her. Denies any acute fever, URI symptoms. Patient denies increased frequency urgency or burning micturition. She had loose watery bowel movement about 3-4 times, denies any recent antibiotic intake. also noticed some blood in the stool and and he states probably hemorrhoidal blood. In ED, vitals were in normal range. [facility] Medical History Non-smoker Stroke/cerebrovascular accident Subarachnoid hemorrhage Hyperlipidemia HTN (hypertension) Colon cancer Home Medications ?Medication ?Instructions ?Recorded ?Last Taken ?Type losartan 100 mg tablet 100 mg PO DAILY #0 tabs 06/15/24 07/30/24 Rx carvedilol 6.25 mg tablet 6.25 mg PO BID 07/30/24 07/30/24 History folic acid 1 mg tablet 1,000 mcg PO DAILY 07/30/24 Unknown History hydralazine 50 mg tablet 50 mg PO TID 07/30/24 Unknown History Held on 07/30/24. Instructions: Ordered mecobalamin (vitamin B12) 1,000 1,000 mcg PO DAILY 07/30/24 Unknown History mcg lozenges Allergy/AdvReac Type Severity Reaction Status Date / Time erythromycin base Allergy Mild rash Verified 07/30/24 09:55 piperacillin (From Zosyn) Allergy Rash Verified 07/30/24 09:55 tazobactam (From Zosyn) Allergy Rash Verified 07/30/24 09:55 Family History Mother No problems noted. Family History no significant family his Surgical History S/P colonoscopy S/P colectomy Social History Smoking Status: Never smoker ROS ROS Narrative 14 system ROS unobtainable because of confusion Review of Systems ROS Unobtainable: due to encephalopathy and due to mental condition Vital Signs Vital Signs Vital Signs: 07/30/24 09:50 07/30/24 13:47 07/30/24 13:48 Temperature 98 F 98 F Temperature Source Temporal Pulse Rate 78 77 Respiratory Rate 20 H 22 H Blood Pressure 152/62 H 142/61 H 142/61 H Blood Pressure Mean 92 88 88 Pulse Ox 91 92 92 Oxygen Delivery Method Room Air Room Air Weight Weight: 121 lb 0.54 oz Body Mass Index (BMI) 22.8 Physical Exam Narrative General: Confused disoriented to time place and person. Irritable and at times getting aggressive. Cannot tell her , age, month and the year. HEENT: Atraumatic, PERRLA, EOMI, Normocephalic Oral: Oral mucosa very dry. No Gingival or Mucosal Lesions/ Ulcerations Neck: Supple, No JVD, Negative Carotid Bruits Chest wall/Lungs: Air entry diminished in bilateral lung bases. No crepitation/rhonchi Cardiovascular: Irregular rhythm, Normal S1, Normal S2, systolic murmur Abdomen: Bowel Sounds Present, Soft, Non Tender, Non-Distended : No dysuria. No renal angle tenderness. No suprapubic tenderness. Extremities: No edema, Capillary Refill Less than 3 Seconds Skin: No rashes, No breakdown Musculoskeletal: No Tenderness to Palpation of Joints or Extremities. Does not follow commands to check motor exam Neurological: Irritable, detailed neuroexam unobtainable. Sensory, gait and muscle strength could not be examined. Psych/Mental Status: Confused. Irritable Results Lab / Micro Data 07/30/24 10:20 07/30/24 10:20 Labs: Laboratory Results - last 24 hr 07/30/24 10:20: WBC 15.3 H, RBC 3.56 L, Hgb 9.7 L, Hct 31.4 L, MCV 88.2, MCH 27.2, MCHC 30.9 L, RDW Std Deviation 46.1 H, RDW Coeff of Edgar 14.3, Plt Count 280, MPV 9.3, Immature Gran % (Auto) 1.000 H, Neut % (Auto) 83.6 H, Lymph % (Auto) 6.7 L, Archuleta % (Auto) 7.7, Eos % (Auto) 0.3, Baso % (Auto) 0.7, Absolute Neuts (auto) 12.8 H, Absolute Lymphs (auto) 1.03, Nucleated RBC % 0, Differential Comment S, Sodium 146 H, Potassium 3.8, Chloride 112 H, Carbon Dioxide 28.0, Anion Gap 6, BUN 46 H, Creatinine 1.54 H, Estim Creat Clear Calc 19.79, Est GFR (MDRD) Af Amer 41 L, Est GFR (MDRD) Non-Af 34 L, BUN/Creatinine Ratio 29.9 H, Glucose 113 H, Calcium 9.0, Total Bilirubin 0.50, AST 12 L, ALT 22, Alkaline Phosphatase 87, Total Protein 7.1, Albumin 2.1 L, Globulin 5.0 H, Albumin/Globulin Ratio 0.4 L 07/30/24 11:50: Urine Color Yellow, Urine Clarity Clear, Urine pH 6.0, Ur Specific [place] 1.015, Urine Protein 30 H, Urine Glucose (UA) Normal, Urine Ketones Negative, Urine Occult Blood 10 H, Urine Nitrite Negative, Urine Bilirubin Negative, Urine Urobilinogen Normal, Ur Leukocyte Esterase 25 H, Urine RBC 0-5 SEEN, Urine WBC 0-5 SEEN, Ur Squamous Epith Cells 0 SEEN, Urine Bacteria 4+, Urine Mucus 0 SEEN Micro: Microbiology 07/30/24 13:00 Stool Stool Lactoferrin - Final 07/30/24 10:21 Mucosa - Nose SARS-CoV-2, Influenza & RSV (PCR) - Final Rhythm Strip Rhythm Strip: Sinus Rhythm Rate: 78 Ectopy: None Imaging Radiology Impression Brain CT 07/30/24 10:09 IMPRESSION: Moderate degree of cerebral atrophy. Focal encephalomalacia in the posterior left parietal occipital lobes as described. This most likely sequela to prior intracerebral hematoma. No significant mass effect is seen. No acute abnormality is seen. Reading Location: [id number] Chest X-Ray 07/30/24 11:15 IMPRESSION: Mild cardiomegaly. Mild vascular congestion and CHF. Reading Location: [id number] Assessment & Plan Assessment/Plan (1) Agitation due to dementia: PLAN: Plan This is a 88-year-old female is being admitted for altered mental status on baseline dementia and recent history of SAH 1. Altered mental status/acute encephalopathy on baseline dementia: Patient is being admitted on [facility] floor. Probably metabolic encephalopathy with hypernatremia therefore started on IV fluid D5W with KCl. Monitor intake and output. TSH, ammonia and B12 and folate ordered. 2. Diarrhea/loose bowel movement with positive C. difficile antigen D C. difficile colitis: Stool for lactoferrin present. Positive C. difficile A and B antigen but negative toxin. In view of diarrhea and altered mental status decided to start on vancomycin oral. Patient recently had C. difficile and was treated with vancomycin. IV fluid rehydration. 3. Hypernatremia and hyperchloremia due to hypovolemia: As mentioned above, IV fluid D5W with KCl 4. Recent subarachnoid hemorrhage about 2 months ago: DVT anticoagulation is contraindicated. PT and OT ordered. 5. Hypertension: Blood pressure is reasonably controlled, 142/61. 6. Dyslipidemia: Not on statin 6. History of colon cancer: Family in remission. Not an acute issue. DVT prophylaxis: High risk. With recent SAH, pharmacological prophylaxis contraindicated. Bilateral SCDs Living will/advanced directive/end of life care: Patient does have living will or advanced directive. Her in ED as power of mergers and acquisitions attorney for health and financial issues. After discussion of benefits/risks procedures involved with full code, DNR CC arrest and DNR CC, the patient's and son stated that she is DNR CCA with no intubation Patient doesn't want artificial life support including intubation, tube feed, ventilator and/chest compression, central venous catheter, vasopressor and DC shock if needed Total time spent in [id number] encounter in discussion of advanced directive 17 minutes. Microbiology Past 72 Hours 07/30/24 13:00 Stool Stool Lactoferrin - Final 07/30/24 13:00 Stool C. difficile GDH Antigen & Toxins - Final 07/30/24 13:00 Stool Clostridioides difficile (PCR) - Final 07/30/24 10:21 Mucosa - Nose SARS-CoV-2, Influenza & RSV (PCR) - Final Laboratory Results 07/30/24 10:20: WBC 15.3 H, RBC 3.56 L, Hgb 9.7 L, Hct 31.4 L, MCV 88.2, MCH 27.2, MCHC 30.9 L, RDW Std Deviation 46.1 H, RDW Coeff of Edgar 14.3, Plt Count 280, MPV 9.3, Immature Gran % (Auto) 1.000 H, Neut % (Auto) 83.6 H, Lymph % (Auto) 6.7 L, Archuleta % (Auto) 7.7, Eos % (Auto) 0.3, Baso % (Auto) 0.7, Absolute Neuts (auto) 12.8 H, Absolute Lymphs (auto) 1.03, Nucleated RBC % 0, Differential Comment S, Sodium 146 H, Potassium 3.8, Chloride 112 H, Carbon Dioxide 28.0, Anion Gap 6, BUN 46 H, Creatinine 1.54 H, Estim Creat Clear Calc 19.79, Est GFR (MDRD) Af Amer 41 L, Est GFR (MDRD) Non-Af 34 L, BUN/Creatinine Ratio 29.9 H, Glucose 113 H, Calcium 9.0, Total Bilirubin 0.50, AST 12 L, ALT 22, Alkaline Phosphatase 87, Total Protein 7.1, Albumin 2.1 L, Globulin 5.0 H, Albumin/Globulin Ratio 0.4 L 07/30/24 11:50: Urine Color Yellow, Urine Clarity Clear, Urine pH 6.0, Ur Specific [place] 1.015, Urine Protein 30 H, Urine Glucose (UA) Normal, Urine Ketones Negative, Urine Occult Blood 10 H, Urine Nitrite Negative, Urine Bilirubin Negative, Urine Urobilinogen Normal, Ur Leukocyte Esterase 25 H, Urine RBC 0-5 SEEN, Urine WBC 0-5 SEEN, Ur Squamous Epith Cells 0 SEEN, Urine Bacteria 4+, Urine Mucus 0 SEEN Charges/Coding Visit Charges Inpatient E&M: 32145 Init Hosp L3 Procedures Hospitalists Procedures: 20911 Advncd Care Plan 30 Min
[2024-07-30 15:03] VITALS: BMI 21.5
[2024-07-30 15:18] VITALS: BP 173/85; PULSE 81; RESP 18; TEMP 36.3; O2SAT 99
--- NOTE | 2024-07-30 16:08 | PN.HOSP_ITS ---
Objective Data Objective Data Vital Signs: Vital Signs Temp Pulse Resp BP Pulse Ox O2 Del Method O2 Flow Rate 97.3 F L 81 18 173/85 H 99 Nasal Cannula 2 07/30/24 15:18 07/30/24 15:18 07/30/24 15:18 07/30/24 15:18 07/30/24 15:18 07/30/24 15:35 07/30/24 15:35 Oxygen Flow Rate (L/min) 2 Oxygen Delivery Method Nasal Cannula Weight: 114 lb Body Mass Index (BMI) 21.5 Intake & Output: Intake and Output for Last 24 Hours 07/28/24 07/29/24 07/30/24 23:59 23:59 23:59 Intake Total 1000 / 1000 Balance 1000 / 1000 Lab / Micro Data 07/30/24 10:20 07/30/24 10:20 Labs: Laboratory Results - last 24 hr 07/30/24 10:20: WBC 15.3 H, RBC 3.56 L, Hgb 9.7 L, Hct 31.4 L, MCV 88.2, MCH 27.2, MCHC 30.9 L, RDW Std Deviation 46.1 H, RDW Coeff of Edgar 14.3, Plt Count 280, MPV 9.3, Immature Gran % (Auto) 1.000 H, Neut % (Auto) 83.6 H, Lymph % (Auto) 6.7 L, Callahan % (Auto) 7.7, Eos % (Auto) 0.3, Baso % (Auto) 0.7, Absolute Neuts (auto) 12.8 H, Absolute Lymphs (auto) 1.03, Nucleated RBC % 0, Differential Comment S, Sodium 146 H, Potassium 3.8, Chloride 112 H, Carbon Dioxide 28.0, Anion Gap 6, BUN 46 H, Creatinine 1.54 H, Estim Creat Clear Calc 19.79, Est GFR (MDRD) Af Amer 41 L, Est GFR (MDRD) Non-Af 34 L, BUN/Creatinine Ratio 29.9 H, Glucose 113 H, Calcium 9.0, Total Bilirubin 0.50, AST 12 L, ALT 22, Alkaline Phosphatase 87, Total Protein 7.1, Albumin 2.1 L, Globulin 5.0 H, A lbumin/Globulin Ratio 0.4 L 07/30/24 11:50: Urine Color Yellow, Urine Clarity Clear, Urine pH 6.0, Ur Specific [place] 1.015, Urine Protein 30 H, Urine Glucose (UA) Normal, Urine Ketones Negative, Urine Occult Blood 10 H, Urine Nitrite Negative, Urine Bilirubin Negative, Urine Urobilinogen Normal, Ur Leukocyte Esterase 25 H, Urine RBC 0-5 SEEN, Urine WBC 0-5 SEEN, Ur Squamous Epith Cells 0 SEEN, Urine Bacteria 4+, Urine Mucus 0 SEEN Micro: Microbiology 07/30/24 13:00 Stool Stool Lactoferrin - Final 07/30/24 13:00 Stool C. difficile GDH Antigen & Toxins - Final 07/30/24 13:00 Stool Clostridioides difficile (PCR) - Final 07/30/24 10:21 Mucosa - Nose SARS-CoV-2, Influenza & RSV (PCR) - Final Radiography Diagnostic Testing: Radiology Impression Brain CT 07/30/24 10:09 IMPRESSION: Moderate degree of cerebral atrophy. Focal encephalomalacia in the posterior left parietal occipital lobes as described. This most likely sequela to prior intracerebral hematoma. No significant mass effect is seen. No acute abnormality is seen. Reading Location: [id number] Chest X-Ray 07/30/24 11:15 IMPRESSION: Mild cardiomegaly. Mild vascular congestion and CHF. Reading Location: [id number] Rhythm Strip Rhythm Strip: Sinus Rhythm Rate: 78 Ectopy: None Assessment & Plan Assessment/Plan PLAN: Plan Microbiology Past 72 Hours 07/30/24 13:00 Stool Stool Lactoferrin - Final 07/30/24 13:00 Stool C. difficile GDH Antigen & Toxins - Final 07/30/24 13:00 Stool Clostridioides difficile (PCR) - Final 07/30/24 10:21 Mucosa - Nose SARS-CoV-2, Influenza & RSV (PCR) - Final Laboratory Results 07/30/24 10:20: WBC 15.3 H, RBC 3.56 L, Hgb 9.7 L, Hct 31.4 L, MCV 88.2, MCH 27.2, MCHC 30.9 L, RDW Std Deviation 46.1 H, RDW Coeff of Edgar 14.3, Plt Count 280, MPV 9.3, Immature Gran % (Auto) 1.000 H, Neut % (Auto) 83.6 H, Lymph % (Auto) 6.7 L, Callahan % (Auto) 7.7, Eos % (Auto) 0.3, Baso % (Auto) 0.7, Absolute Neuts (auto) 12.8 H, Absolute Lymphs (auto) 1.03, Nucleated RBC % 0, Differential Comment S, Sodium 146 H, Potassium 3.8, Chloride 112 H, Carbon Dioxide 28.0, Anion Gap 6, BUN 46 H, Creatinine 1.54 H, Estim Creat Clear Calc 19.79, Est GFR (MDRD) Af Amer 41 L, Est GFR (MDRD) Non-Af 34 L, BUN/Creatinine Ratio 29.9 H, Glucose 113 H, Calcium 9.0, Total Bilirubin 0.50, AST 12 L, ALT 22, Alkaline Phosphatase 87, Total Protein 7.1, Albumin 2.1 L, Globulin 5.0 H, Albumin/Globulin Ratio 0.4 L 07/30/24 11:50: Urine Color Yellow, Urine Clarity Clear, Urine pH 6.0, Ur Specific [place] 1.015, Urine Protein 30 H, Urine Glucose (UA) Normal, Urine Ketones Negative, Urine Occult Blood 10 H, Urine Nitrite Negative, Urine Bilirubin Negative, Urine Urobilinogen Normal, Ur Leukocyte Esterase 25 H, Urine RBC 0-5 SEEN, Urine WBC 0-5 SEEN, Ur Squamous Epith Cells 0 SEEN, Urine Bacteria 4+, Urine Mucus 0 SEEN
[2024-07-30] MEDS: Potassium Chloride 40 MEQ in Dextrose 5%-Water (1000mL Bag) 1,000 ML 100 MEQ IV (16:30)
[2024-07-30] MEDS: Carvedilol 6.25 MG Tablet PO (17:28)
[2024-07-30] MEDS: Vancomycin 125 MG/5 ML Susp PO.SYRINGE PO ×2 (17:28→23:07)
[2024-07-30] MEDS: Losartan Potassium 100 MG Tablet PO (17:28)
[2024-07-30 17:30] LABS: Vitamin B12 > 2000 pg/mL (211-911)
[2024-07-30 20:55] VITALS: BP 107/53; PULSE 79; RESP 18; TEMP 36.6; O2SAT 97
[2024-07-30] MEDS: Menthol/Lanolin/Calamine/Znox 113 GM Tube 1 APPLIC TOPICAL (20:59)
[2024-07-31] VITALS (7 sets, daily range): BP systolic 64–130; BP diastolic 29–59; PULSE 68–87; RESP 16–18; TEMP 36.4–37.5; O2SAT 94–98
[2024-07-31] MEDS: Potassium Chloride 40 MEQ in Dextrose 5%-Water (1000mL Bag) 1,000 ML 100 MEQ IV (02:21)
[2024-07-31] MEDS: Vancomycin 125 MG/5 ML Susp PO.SYRINGE PO ×4 (05:45→23:16)
[2024-07-31] MEDS: Menthol/Lanolin/Calamine/Znox 113 GM Tube 1 APPLIC TOPICAL ×3 (05:45→21:48)
[2024-07-31 06:52] LABS: Absolute Lymphocyte Count 1.39 X10^3/uL (0.83-4.51); Absolute Neutrophil Count 11.4 X10^3/uL (2.0-7.7); Basophil# 0.05 X10^3/uL; Basophil% 0.3 % (0-1); Eosinophil# 0.12 X10^3/uL; Eosinophils% 0.8 % (0-5); Hematocrit 27.2 % (37-47); Hemoglobin 8.6 g/dL (12.0-15.0); Lymphocyte # 1.39 X10^3/ul (0.83-4.51); Lymphocyte % 9.7 % (19-41); Mean Corp Hgb Conc 31.6 g/dL (32-36); Mean Corpuscular Hgb 27.7 pg (27.0-32.0); Mean Corpuscular Volume 87.5 fL (81-99); Mean Platelet Vol. 8.8 fl (6.2-12.0); Monocyte# 1.28 X10^3/uL; Monocyte% 8.9 % (0-10); NRBC Flagged by Analyzer 0 % (0-5); Neutrophil # 11.35 X10^3/uL (2.7-7.7); Neutrophil % 79.3 % (47-70); Platelet Count 224 K/mm3 (150-450); RBC Distribution Width CV 14.4 % (11.6-14.6); RBC Distribution Width SD 46.1 fl (35.1-43.9); Red Blood Count 3.11 M/mm3 (4.2-5.4); White Blood Count 14.3 K/mm3 (4.4-11.0)
[2024-07-31 08:32] LABS: Anion Gap 7 (5-15); BUN 35 mg/dL (7-18); BUN/Creat Ratio 25.9 RATIO (10-20); Calcium,Total 8.4 mg/dL (8.5-10.1); Chloride 113 mmol/L (98-107); Creatinine, Serum 1.35 mg/dL (0.55-1.02); EST Glomerular Filtration Rate 40 mL/min (>60); Est Glom Filt Rate - Afr Amer 48 mL/min (>60); Estimated Creatinine Clearance 22.57 ml/min; Glucose 156 mg/dL (74-106); Magnesium 2.2 mg/dL (1.6-2.6); Phosphorus 2.8 mg/dL (2.5-4.9); Potassium 4.3 mmol/L (3.5-5.1); Sodium Level 143 mmol/L (136-145)
--- NOTE | 2024-07-31 09:10 | CASEMGMT ---
ARAM DEGROOT Assessment: ARAM DEGROOT noted confusion in Pt chart, attempted and had no answer. Called Son for initial transition planning/care coordination assessment. ARAM DEGROOT introduced self and role at [facility], pt son voices understanding and consents to assessment. Care providers, pharmacy, and demographics verified/updated. Strata: 3 Admitting Dx: Failure to thrive PCP: Veronica Specialists: Denies Preferred [facility]acy[facility] Insurance: [facility], [facility] Prescription Benefit: yes LNOK: , Davi; Son, Sadiq Living Arrangements: Pt lives with in a ranch home with a ramp to enter. ADLs: Pt requiring assistance, has been needing more assistance in the past week. Transportation: Pt family provides transportation. DME: bedside commode, grab bars, shower bench, W/C, walker, cane, rollator HHC/SNF: Pt previously at [facility], family brought pt home due to outbreak with COVID. Attempted to get pt into [facility] and [facility] which turned family down due to lack of beds. Pt family requested [facility], denies wanting a list of facilities. ARAM DEGROOT Notified ARAM DEGROOT and ALLEN on floor. SW/CM to follow. Advised pt to ask CM if any further question/concerns/needs arise, voices understanding. Pt Goal: SNF Plan: SNF, follow therapy. Scot CHIU CM
--- NOTE | 2024-07-31 09:12 | CASEMGMT ---
Addendum entered by Gabby Cronin 07/31/24 15:30: Therapy evals sent to [facility] with note that Passr has been completed. Gabby Cronin DC Planning Asst. Addendum entered by Gabby Cronin 07/31/24 09:21: [facility] has accepted. Updates will need sent once therapy evals are completed. SW updated. Gabby Cronin DC Planning Asst. Original Note: SNF referral sent to [facility]. Gabby Cronin DC Planning Asst.
[2024-07-31] MEDS: Folic Acid 1 MG Tablet PO (09:16)
[2024-07-31] MEDS: Cyanocobalamin 500 MCG Tablet 1000 MCG PO (09:16)
[2024-07-31] MEDS: Losartan Potassium 100 MG Tablet PO (09:16)
[2024-07-31] MEDS: Carvedilol 6.25 MG Tablet PO ×2 (09:16→17:46)
--- NOTE | 2024-07-31 10:13 | PCM.PN.HOSP ---
Reason for Visit Reason for Visit: Diagnoses Unspecified dementia, unspecified severity, with agitation (07/30/24) Objective Data Objective Data Vital Signs: Vital Signs Temp Pulse Resp BP Pulse Ox O2 Del Method O2 Flow Rate 98.2 F 77 18 130/59 H 97 Nasal Cannula 2 07/31/24 09:15 07/31/24 09:15 07/31/24 09:15 07/31/24 09:15 07/31/24 09:15 07/31/24 09:33 07/31/24 09:33 Oxygen Flow Rate (L/min) 2 Oxygen Delivery Method Nasal Cannula Weight: 114 lb Body Mass Index (BMI) 21.5 Intake & Output: Intake and Output for Last 24 Hours 07/29/24 07/30/24 07/31/24 23:59 23:59 23:59 Intake Total 1000 / 1000 985 / 985 Balance 1000 / 1000 985 / 985 Lab / Micro Data 07/31/24 06:40 07/31/24 06:40 Labs: Laboratory Results - last 24 hr 07/30/24 10:20: WBC 15.3 H, RBC 3.56 L, Hgb 9.7 L, Hct 31.4 L, MCV 88.2, MCH 27.2, MCHC 30.9 L, RDW Std Deviation 46.1 H, RDW Coeff of Edgar 14.3, Plt Count 280, MPV 9.3, Immature Gran % (Auto) 1.000 H, Neut % (Auto) 83.6 H, Lymph % (Auto) 6.7 L, Ripley % (Auto) 7.7, Eos % (Auto) 0.3, Baso % (Auto) 0.7, Absolute Neuts (auto) 12.8 H, Absolute Lymphs (auto) 1.03, Nucleated RBC % 0, Differential Comment S, Sodium 146 H, Potassium 3.8, Chloride 112 H, Carbon Dioxide 28.0, Anion Gap 6, BUN 46 H, Creatinine 1.54 H, Estim Creat Clear Calc 19.79, Est GFR (MDRD) Af Amer 41 L, Est GFR (MDRD) Non-Af 34 L, BUN/Creatinine Ratio 29.9 H, Glucose 113 H, Calcium 9.0, Total Bilirubin 0.50, AST 12 L, ALT 22, Alkaline Phosphatase 87, Total Protein 7.1, Albumin 2.1 L, Globulin 5.0 H, Albumin/Globulin Ratio 0.4 L 07/30/24 11:50: Urine Color Yellow, Urine Clarity Clear, Urine pH 6.0, Ur Specific [place] 1.015, Urine Protein 30 H, Urine Glucose (UA) Normal, Urine Ketones Negative, Urine Occult Blood 10 H, Urine Nitrite Negative, Urine Bilirubin Negative, Urine Urobilinogen Normal, Ur Leukocyte Esterase 25 H, Urine RBC 0-5 SEEN, Urine WBC 0-5 SEEN, Ur Squamous Epith Cells 0 SEEN, Urine Bacteria 4+, Urine Mucus 0 SEEN 07/30/24 16:46: Ammonia 26.0, Vitamin B12 > 2000 H, Folate 51.40 07/31/24 06:40: WBC 14.3 H, RBC 3.11 L, Hgb 8.6 L, Hct 27.2 L, MCV 87.5, MCH 27.7, MCHC 31.6 L, RDW Std Deviation 46.1 H, RDW Coeff of Edgar 14.4, Plt Count 224, MPV 8.8, Immature Gran % (Auto) 1.000 H, Neut % (Auto) 79.3 H, Lymph % (Auto) 9.7 L, Ripley % (Auto) 8.9, Eos % (Auto) 0.8, Baso % (Auto) 0.3, Absolute Neuts (auto) 11.4 H, Absolute Lymphs (auto) 1.39, Nucleated RBC % 0, Sodium 143, Potassium 4.3, Chloride 113 H, Carbon Dioxide 23.0, Anion Gap 7, BUN 35 H, Creatinine 1.35 H, Estim Creat Clear Calc 22.57, Est GFR (MDRD) Af Amer 48 L, Est GFR (MDRD) Non-Af 40 L, BUN/Creatinine Ratio 25.9 H, Glucose 156 H, Calcium 8.4 L, Phosphorus 2.8, Magnesium 2.2, TSH 1.450 Micro: Microbiology 07/30/24 11:50 Urine, Catheterized Urine Culture - Preliminary Gram negative lashonda 07/30/24 13:00 Stool Stool Lactoferrin - Final 07/30/24 13:00 Stool Enteric Bacteriology - Final 07/30/24 13:00 Stool C. difficile GDH Antigen & Toxins - Final 07/30/24 13:00 Stool Clostridioides difficile (PCR) - Final 07/30/24 10:21 Mucosa - Nose SARS-CoV-2, Influenza & RSV (PCR) - Final Radiography Diagnostic Testing: Radiology Impression Brain CT 07/30/24 10:09 IMPRESSION: Moderate degree of cerebral atrophy. Focal encephalomalacia in the posterior left parietal occipital lobes as described. This most likely sequela to prior intracerebral hematoma. No significant mass effect is seen. No acute abnormality is seen. Reading Location: [id number] Chest X-Ray 07/30/24 11:15 IMPRESSION: Mild cardiomegaly. Mild vascular congestion and CHF. Reading Location: [id number] Rhythm Strip Rhythm Strip: Sinus Rhythm Rate: 78 Ectopy: None Physical Exam Narrative Seen and examined. Patient is more quite but is still confused and disoriented. Discussed with the patient's daughter near the bedside. Patient had C. difficile antigen positive about 1 month ago and she had about 10 days of oral vancomycin. No fever. Physical exam General: Confused disoriented to time place and person. Cannot tell her , age, month and the year. HEENT: Atraumatic, PERRLA, EOMI, Normocephalic Oral: Oral mucosa very dry. No Gingival or Mucosal Lesions/ Ulcerations Neck: Supple, No JVD, Negative Carotid Bruits Chest wall/Lungs: Air entry diminished in bilateral lung bases. No crepitation/rhonchi Cardiovascular: Irregular rhythm, Normal S1, Normal S2, systolic murmur Abdomen: Bowel Sounds Present, Soft, Non Tender, Non-Distended : No dysuria. No renal angle tenderness. No suprapubic tenderness. Extremities: No edema, Capillary Refill Less than 3 Seconds Skin: No rashes, No breakdown Musculoskeletal: No Tenderness to Palpation of Joints or Extremities. Does not follow commands to check motor exam Neurological: detailed neuroexam unobtainable. Sensory, gait and muscle strength could not be examined. Psych/Mental Status: Confused Assessment & Plan Assessment/Plan (1) Agitation due to dementia: PLAN: Plan This is a 88-year-old female is being admitted for altered mental status on baseline dementia and recent history of SAH 1. Altered mental status/acute encephalopathy on baseline dementia: Patient is being admitted on [facility] floor. Probably metabolic encephalopathy with hypernatremia therefore started on IV fluid D5W with KCl. Monitor intake and output. TSH, ammonia and B12 and folate ordered. 07/31: Possible metabolic encephalopathy from dehydration: Continue IV fluid D5W plus KCl for nutrition and hydration. Patient has decreased oral intake but having Ensure. Neuroconsult ordered. Triple PCR for SARS-CoV-2, flu and RSV are negative 2. Diarrhea/loose bowel movement with positive C. difficile antigen, possible C. difficile colitis: Stool for lactoferrin present. Positive C. difficile A and B antigen but negative toxin. In view of diarrhea and altered mental status decided to start on vancomycin oral. Patient recently had C. difficile and was treated with vancomycin. IV fluid rehydration. 07/31: C. difficile antigen came positive but toxins are negative most likely colonization but patient having diarrhea therefore on oral vancomycin. Need total of 2 weeks for eradication. Urine culture shows GNR 11,000?25,000 colonies, in nonpathologic range and therefore UTI ruled out. Serum magnesium and phosphorus normal. 3. Hypernatremia and hyperchloremia due to hypovolemia resulting in CATHY prerenal: As mentioned above, IV fluid D5W with KCl Patient baseline creatinine normal about 0.9-1. Was admitted with creatinine 1.54 07/31: Serum sodium is better 143 from 146. Creatinine 1.35. Continue IV fluid 4. Recent subarachnoid hemorrhage about 2 months ago: DVT anticoagulation is contraindicated. PT and OT ordered. 5. Hypertension: Blood pressure is reasonably controlled, 142/61. 6. Dyslipidemia: Not on statin 6. History of colon cancer: Family in remission. Not an acute issue. DVT prophylaxis: High risk. With recent SAH, pharmacological prophylaxis contraindicated. Bilateral SCDs Living will/advanced directive/end of life care: Patient does have living will or advanced directive. Her in ED as power of senior attorney for health and financial issues. After discussion of benefits/risks procedures involved with full code, DNR CC arrest and DNR CC, the patient's and son stated that she is DNR CCA with no intubation Patient doesn't want artificial life support including intubation, tube feed, ventilator and/chest compression, central venous catheter, vasopressor and DC shock if needed Microbiology Past 72 Hours 07/30/24 11:50 Urine, Catheterized Urine Culture - Preliminary Gram negative lashonda 07/30/24 13:00 Stool Stool Lactoferrin - Final 07/30/24 13:00 Stool Enteric Bacteriology - Final 07/30/24 13:00 Stool C. difficile GDH Antigen & Toxins - Final 07/30/24 13:00 Stool Clostridioides difficile (PCR) - Final 07/30/24 10:21 Mucosa - Nose SARS-CoV-2, Influenza & RSV (PCR) - Final Laboratory Results 07/30/24 10:20: WBC 15.3 H, RBC 3.56 L, Hgb 9.7 L, Hct 31.4 L, MCV 88.2, MCH 27.2, MCHC 30.9 L, RDW Std Deviation 46.1 H, RDW Coeff of Edgar 14.3, Plt Count 280, MPV 9.3, Immature Gran % (Auto) 1.000 H, Neut % (Auto) 83.6 H, Lymph % (Auto) 6.7 L, Ripley % (Auto) 7.7, Eos % (Auto) 0.3, Baso % (Auto) 0.7, Absolute Neuts (auto) 12.8 H, Absolute Lymphs (auto) 1.03, Nucleated RBC % 0, Differential Comment S, Sodium 146 H, Potassium 3.8, Chloride 112 H, Carbon Dioxide 28.0, Anion Gap 6, BUN 46 H, Creatinine 1.54 H, Estim Creat Clear Calc 19.79, Est GFR (MDRD) Af Amer 41 L, Est GFR (MDRD) Non-Af 34 L, BUN/Creatinine Ratio 29.9 H, Glucose 113 H, Calcium 9.0, Total Bilirubin 0.50, AST 12 L, ALT 22, Alkaline Phosphatase 87, Total Protein 7.1, Albumin 2.1 L, Globulin 5.0 H, Albumin/Globulin Ratio 0.4 L 07/30/24 11:50: Urine RBC 0-5 SEEN, Urine WBC 0-5 SEEN, Ur Squamous Epith Cells 0 SEEN, Urine Bacteria 4+, Urine Mucus 0 SEEN 07/30/24 16:46: Ammonia 26.0, Vitamin B12 > 2000 H, Folate 51.40 07/31/24 06:40: WBC 14.3 H, RBC 3.11 L, Hgb 8.6 L, Hct 27.2 L, MCV 87.5, MCH 27.7, MCHC 31.6 L, RDW Std Deviation 46.1 H, RDW Coeff of Edgar 14.4, Plt Count 224, MPV 8.8, Immature Gran % (Auto) 1.000 H, Neut % (Auto) 79.3 H, Lymph % (Auto) 9.7 L, Ripley % (Auto) 8.9, Eos % (Auto) 0.8, Baso % (Auto) 0.3, Absolute Neuts (auto) 11.4 H, Absolute Lymphs (auto) 1.39, Nucleated RBC % 0, Sodium 143, Potassium 4.3, Chloride 113 H, Carbon Dioxide 23.0, Anion Gap 7, BUN 35 H, Creatinine 1.35 H, Estim Creat Clear Calc 22.57, Est GFR (MDRD) Af Amer 48 L, Est GFR (MDRD) Non-Af 40 L, BUN/Creatinine Ratio 25.9 H, Glucose 156 H, Calcium 8.4 L, Phosphorus 2.8, Magnesium 2.2, TSH 1.450 Charges/Coding Visit Charges Inpatient E&M: 03877 Subs Hosp L2
--- NOTE | 2024-07-31 10:22 | CASEMGMT ---
[facility] notified that pt will likely be ready over the weekend (qualifying stay 08/02). Green sheet and transport form placed in chart. Gabby Cronin DC Planning Asst.
--- NOTE | 2024-07-31 10:23 | CASEMGMT ---
Social Work- SW received notice that pt family would like [facility]. [facility] met with pt and pt dtr, Ranjana, who confirm that they would like [facility]. [facility] and [facility] were FOC, but pt son called while pt in community and were told they were full; SW confirmed. Pt dtr reports that they are looking for LTC for pt, but would like to skill pt initially and would like to discuss pay transition with facility. SW notified [facility] to pass on message with referral. SW discussed three midnights for MCR; pt dtr familiar from previous SNF placements. Pt was accepted at [facility]. Pt will not be able to admit prior to Saturday. Plan: [facility]; pend third midnight DEMETRA Wayne
[2024-07-31] MEDS: Lactobacillis Acidophilus 1 CAP PO ×2 (11:41→21:48)
--- NOTE | 2024-07-31 12:37 | CASEMGMT ---
Social Work PAS/RR completed in the [facility] system, no further review needed. Copy of PASRR and results printed for the chart. CAMRYN Jacobo
--- NOTE | 2024-07-31 14:02 | NEURO.CONS ---
Assessment and Plan: Neuro Assessment/Plan MUNDO LOVE is a 88 F with a past medical history of recent L parietal IPH, being evaluated by Teleneurology for 5 day worsening in confusion and agitation, poor movement. At this time, concern predominently for worsening of symptoms 2/2 infection, however if no clear infections found, would consider evaluation for other causes that are related to her IPH. Plan: - routine EEG - KUB to eval for and distention in the abdomen - repeat UA tomorrow to eval for UTI (her culture is + GNR but few cfus) - MRI Brain w/wo con if no improvement in symptoms over the next couple days I personally attended this patient and spent a total time of 45minutes evaluating this patient including clinical assessment, review of chart, medical history imaging, and determining appropriate treatment and workup. HPI Consult Data Date of Consult: 07/31/24 HPI Narrative HPI Narrative: MUNDO LOVE, is a 88 F was brought to ED for change in mental status and decline in physical and mental health. Patient had subarachnoid hemorrhage with residual right-sided deficit on 05/22/2024 when she was transferred to [facility]. From there she had acute rehab and was discharged home 06/15/2024. As per her who is the sole caregiver, she has been declining in last 1 month and required more support. She walked 1-2 times on her home but other times she required support. She also poor appetite with very less oral intake in the last 1 week. For the last 48 hours, she also noticed more confused and irritable disoriented. Her says he cannot take care of her. Denies any acute fever, URI symptoms. Patient denies increased frequency urgency or burning micturition. She had loose watery bowel movement about 3-4 times, denies any recent antibiotic intake. also noticed some blood in the stool and and he states probably hemorrhoidal blood. In ED, vitals were in normal range. Neurologic History Discussed history with daughter and cousin, patient was doing better at home, able to stand and was eating more but then 5 days ago had steep decline with decreased PO intake, and increased confusion. She started sleeping a lot as well. She was not eating as much after the stroke but the R sided weakness had improved significantly. Over the last 5 days she has started to have R leg and arm shaking and will intermittently be awake during these. She started having copious diarrhea [facility] Medical History Non-smoker Stroke/cerebrovascular accident Subarachnoid hemorrhage Hyperlipidemia HTN (hypertension) Colon cancer Home Medications ?Medication ?Instructions ?Recorded ?Last Taken ?Type losartan 100 mg tablet 100 mg PO DAILY #0 tabs 06/15/24 07/30/24 Rx carvedilol 6.25 mg tablet 6.25 mg PO BID 07/30/24 07/30/24 History folic acid 1 mg tablet 1,000 mcg PO DAILY 07/30/24 Unknown History hydralazine 50 mg tablet 50 mg PO TID 07/30/24 Unknown History Held on 07/30/24. Instructions: MD Ordered mecobalamin (vitamin B12) 1,000 1,000 mcg PO DAILY 07/30/24 Unknown History mcg lozenges Allergy/AdvReac Type Severity Reaction Status Date / Time erythromycin base Allergy Mild rash Verified 07/30/24 09:55 piperacillin (From Zosyn) Allergy Rash Verified 07/30/24 09:55 tazobactam (From Zosyn) Allergy Rash Verified 07/30/24 09:55 Family History Mother No problems noted. Family History no significant family his Surgical History S/P colonoscopy S/P colectomy Social History Smoking Status: Never smoker Vital Signs Vital Signs Vital Signs: 07/30/24 15:18 07/30/24 15:35 07/30/24 17:04 Temperature 97.3 F L Temperature Source Oral Pulse Rate 81 Respiratory Rate 18 Respiratory Effort Normal Respiratory Depth Normal Respiratory Pattern Blood Pressure 173/85 H Blood Pressure Mean 114 Blood Pressure Source Monitor Blood Pressure Position Semi-Fowlers Blood Pressure Location Right Arm Pulse Ox 99 Oxygen Delivery Method Nasal Cannula Nasal Cannula Nasal Cannula Oxygen Flow Rate (L/min) 2 2 2 07/30/24 20:07 07/30/24 20:55 07/30/24 21:03 Temperature 97.8 F Temperature Source Oral Pulse Rate 79 Respiratory Rate 18 Respiratory Effort Normal Non-Labored Respiratory Depth Normal Respiratory Pattern Normal Blood Pressure 107/53 L Blood Pressure Mean 71 Blood Pressure Source Blood Pressure Position Blood Pressure Location Pulse Ox 97 Oxygen Delivery Method Room Air Nasal Cannula Nasal Cannula Oxygen Flow Rate (L/min) 2 2 07/31/24 02:19 07/31/24 07:40 07/31/24 09:15 Temperature 98 F 98.2 F Temperature Source Oral Temporal Pulse Rate 79 77 Respiratory Rate 16 18 Respiratory Effort Respiratory Depth Respiratory Pattern Blood Pressure 125/56 H 130/59 H Blood Pressure Mean 79 82 Blood Pressure Source Monitor Blood Pressure Position Semi-Fowlers Blood Pressure Location Right Arm Pulse Ox 96 97 Oxygen Delivery Method Nasal Cannula Nasal Cannula Nasal Cannula Oxygen Flow Rate (L/min) 2 2 2 07/31/24 09:33 Temperature Temperature Source Pulse Rate Respiratory Rate Respiratory Effort Normal Non-Labored Respiratory Depth Normal Respiratory Pattern Normal Blood Pressure Blood Pressure Mean Blood Pressure Source Blood Pressure Position Blood Pressure Location Pulse Ox Oxygen Delivery Method Nasal Cannula Oxygen Flow Rate (L/min) 2 Weight Weight: 51.7 kg Body Mass Index (BMI) 21.5 EEG Results Procedure Details EEG Procedure Details: MUNDO LOVE is a 88 year old F with a past medical history of , who presents for evaluation of Electroencephalogram on DATE at TIME Physical Exam Narrative Patient is very somnolent, difficult to arouse, moans and mumbles Follows simple commands from famly no facial asymmetry noted Difficulty looking to the L but eom intact horizontally UE fights against movement, able to lift antigravity but falls to bed LE move in plane of bed REacts to noxious stim b/l Lab / Micro Data 07/31/24 06:40 07/31/24 06:40 Labs: Laboratory Results - last 24 hr 07/30/24 16:46: Ammonia 26.0, Vitamin B12 > 2000 H, Folate 51.40 07/31/24 06:40: WBC 14.3 H, RBC 3.11 L, Hgb 8.6 L, Hct 27.2 L, MCV 87.5, MCH 27.7, MCHC 31.6 L, RDW Std Deviation 46.1 H, RDW Coeff of Edgar 14.4, Plt Count 224, MPV 8.8, Immature Gran % (Auto) 1.000 H, Neut % (Auto) 79.3 H, Lymph % (Auto) 9.7 L, Real % (Auto) 8.9, Eos % (Auto) 0.8, Baso % (Auto) 0.3, Absolute Neuts (auto) 11.4 H, Absolute Lymphs (auto) 1.39, Nucleated RBC % 0, Sodium 143, Potassium 4.3, Chloride 113 H, Carbon Dioxide 23.0, Anion Gap 7, BUN 35 H, Creatinine 1.35 H, Estim Creat Clear Calc 22.57, Est GFR (MDRD) Af Amer 48 L, Est GFR (MDRD) Non-Af 40 L, BUN/Creatinine Ratio 25.9 H, Glucose 156 H, Calcium 8.4 L, Phosphorus 2.8, Magnesium 2.2, TSH 1.450 Micro: Microbiology 07/30/24 11:50 Urine, Catheterized Urine Culture - Preliminary Gram negative lashonda 07/30/24 13:00 Stool Stool Lactoferrin - Final 07/30/24 13:00 Stool Enteric Bacteriology - Final 07/30/24 13:00 Stool C. difficile GDH Antigen & Toxins - Final 07/30/24 13:00 Stool Clostridioides difficile (PCR) - Final 07/30/24 10:21 Mucosa - Nose SARS-CoV-2, Influenza & RSV (PCR) - Final Rhythm Strip Rhythm Strip: Sinus Rhythm Rate: 78 Ectopy: None Active Medications Active Medications Active Medications: Current Medications Generic Name Dose Route Start Last Admin Trade Name Freq PRN Reason Stop Dose Admin Acetaminophen 650 mg 07/30/24 16:09 Acetaminophen 325 Mg Tablet PO Q6H PRN PRN Pain 1-10 Or Fever >100.7 Calamine/Phenol 1 applic 07/30/24 22:00 07/31/24 13:33 Menthol/Lanolin/Calamine/Znox 113 Gm Tube TOPICAL 1 applic TID YOMAIRA Administration Protocol Carvedilol 6.25 mg 07/30/24 17:00 07/31/24 09:16 Carvedilol 6.25 Mg Tablet PO 6.25 mg BIDCM YOMAIRA Administration Protocol Cyanocobalamin 1,000 mcg 07/31/24 10:00 07/31/24 09:16 Cyanocobalamin 500 Mcg Tablet PO 1,000 mcg DAILY YOMAIRA Administration Folic Acid 1 mg 07/31/24 08:00 07/31/24 09:16 Folic Acid 1 Mg Tablet PO 1 mg BREAKFAST YOMAIRA Administration Sodium Chloride 100 mls @ 15 mls/hr 07/30/24 15:19 IV .Q6H40M PRN Saline Flush Sodium Chloride 100 mls @ 15 mls/hr 07/30/24 15:19 IV .Q6H40M PRN Additional IVPB Infusion Losartan Potassium 100 mg 07/30/24 16:30 07/31/24 09:16 Losartan Potassium 100 Mg Tablet PO 100 mg DAILY YOMAIRA Administration Protocol Nitroglycerin 0.4 mg 07/30/24 16:09 Nitroglycerin (Inpatient Use) 0.4 Mg Tab.Subl SL Q5M PRN CARDIAC/CHEST PAIN Ondansetron HCl 4 mg 07/31/24 12:14 Ondansetron 4 Mg/2 Ml Vial IV Q6H PRN PRN NAUSEA/VOMITING Senna/Docusate Sodium 2 tablet 07/30/24 16:09 Senna/Docusate Sodium 1 Tablet PO BID PRN PRN Constipation Sodium Chloride 10 - 40 ml 07/30/24 15:19 0.9% Saline Lock 10 Ml Syringe IV UD PRN SALINE FLUSH Vancomycin HCl 125 mg 07/30/24 18:00 07/31/24 11:41 Vancomycin 125 Mg/5 Ml Susp Po.Syringe PO 125 mg Q6 YOMAIRA Administration
--- NOTE | 2024-07-31 16:29 | CASEMGMT ---
Social Work- Discharge to CC, under skilled level of care. PASRR completed and on chart.?In case of possible weekend discharge, green sheet and transport form on chart for nursing to follow for final discharge arrangements/notifications to SNF, patient/family.? Plan: [facility]; skilled level of care DEMETRA Wayne
--- NOTE | 2024-08-01 00:10 | PCM.HOSP.N ---
Hospitalist Note Patient with SBP in the 60s, continued agitation, no lethargy noted, will given 1L NS bolus now and reassess. Only 1 recent loose BM. No recent sedative medications per RN.
[2024-08-01] MEDS: 0.9% Normal Saline (1000mL) 1,000 ML 999 ML IV (00:43)
[2024-08-01 01:44] VITALS: BP 108/50; PULSE 73; RESP 16; TEMP 36.7; O2SAT 94
[2024-08-01 04:54] VITALS: BP 125/55; PULSE 66; RESP 16; TEMP 36.7; O2SAT 94
[2024-08-01] MEDS: Vancomycin 125 MG/5 ML Susp PO.SYRINGE PO ×3 (05:54→17:32)
[2024-08-01] MEDS: Menthol/Lanolin/Calamine/Znox 113 GM Tube 1 APPLIC TOPICAL ×2 (05:54→14:13)
[2024-08-01 08:47] VITALS: BP 110/48; PULSE 67; RESP 17; TEMP 36.7; O2SAT 94
[2024-08-01 08:48] VITALS: BP 110/48; PULSE 67; RESP 17; TEMP 36.7; O2SAT 94
[2024-08-01] MEDS: Lactobacillis Acidophilus 1 CAP PO (11:10)
--- NOTE | 2024-08-01 12:08 | CASEMGMT ---
Addendum entered by Haylee Fields 08/01/24 12:44: Social Work Return call from [facility] and meeting with pt family set for 2pm today. RN updated. DEMETRA Rosas Original Note: Social Work Physician notified SW of hospice consult. SW met with pt's and son and discussed options moving forward including skilled care at [facility] as planned, evaluation by hospice for the inpatient unit, or evaluation by hospice for placement at [facility] with hospice care. Pt's spouse and son requesting pt remain at [facility] until pt passes. SW again explained the inpatient hospice unit and purpose to comfort care there. Pt's and son do not feel continued aggressive treatment is appropriate at this time and are agreeable to hospice consult. Referral called to [facility] and clinicals faxed. [facility] to call pt son Sadiq and make an appointment for consultation. DEMETRA Rosas
--- NOTE | 2024-08-01 13:00 | PN.HOSP_ITS ---
Reason for Visit Reason for Visit: Diagnoses Unspecified dementia, unspecified severity, with agitation (07/30/24) Objective Data Objective Data Vital Signs: Vital Signs Temp Pulse Resp BP Pulse Ox O2 Del Method O2 Flow Rate 98.1 F 67 17 110/48 L 94 Room Air 2 08/01/24 08:48 08/01/24 08:48 08/01/24 08:48 08/01/24 08:48 08/01/24 08:48 08/01/24 09:23 07/31/24 14:30 Oxygen Flow Rate (L/min) 2 Oxygen Delivery Method Room Air Weight: 113 lb 15.664 oz Body Mass Index (BMI) 21.5 Intake & Output: Intake and Output for Last 24 Hours 07/30/24 07/31/24 08/01/24 23:59 23:59 23:59 Intake Total 1000 / 1000 1000 / 1000 Balance 1000 / 1000 1000 / 1000 Lab / Micro Data 07/31/24 06:40 07/31/24 06:40 Micro: Microbiology 07/31/24 18:00 Urine, Clean Catch Urine Culture - Preliminary Gram negative lashonda 07/30/24 11:50 Urine, Catheterized Urine Culture - Preliminary Escherichia coli 07/30/24 13:00 Stool Stool Lactoferrin - Final 07/30/24 13:00 Stool Enteric Bacteriology - Final 07/30/24 13:00 Stool C. difficile GDH Antigen & Toxins - Final 07/30/24 13:00 Stool Clostridioides difficile (PCR) - Final 07/30/24 10:21 Mucosa - Nose SARS-CoV-2, Influenza & RSV (PCR) - Final Rhythm Strip Rhythm Strip: Sinus Rhythm Rate: 78 Ectopy: None Physical Exam Narrative Seen and examined. Patient is more quite but is still confused and disoriented. Discussed with the patient's daughter near the bedside. Patient had C. difficile antigen positive about 1 month ago and she had about 10 days of oral vancomycin. No fever. Cannot tell her , age, month and the year. Physical exam General: Confused disoriented to time place and person. At times irritable HEENT: Atraumatic, PERRLA, EOMI, Normocephalic Oral: Oral mucosa very dry. No Gingival or Mucosal Lesions/ Ulcerations Neck: Supple, No JVD, Negative Carotid Bruits Chest wall/Lungs: Air entry diminished in bilateral lung bases. No crepitation/rhonchi Cardiovascular: Irregular rhythm, Normal S1, Normal S2, systolic murmur Abdomen: Bowel Sounds Present, Soft, Non Tender, Non-Distended : No dysuria. No renal angle tenderness. No suprapubic tenderness. Extremities: No edema, Capillary Refill Less than 3 Seconds Skin: No rashes, No breakdown Musculoskeletal: No Tenderness to Palpation of Joints or Extremities. Does not follow commands to check motor exam Neurological: detailed neuroexam unobtainable. Sensory, gait and muscle strength could not be examined. Psych/Mental Status: Confused Assessment & Plan Assessment/Plan (1) Agitation due to dementia: PLAN: Plan This is a 88-year-old female is being admitted for altered mental status on baseline dementia and recent history of SAH 1. Altered mental status/acute encephalopathy on baseline dementia: Patient is being admitted on MedSur floor. Probably metabolic encephalopathy with hypernatremia therefore started on IV fluid D5W with KCl. Monitor intake and output. TSH, ammonia and B12 and folate ordered. 2: Possible metabolic encephalopathy from dehydration: Continue IV fluid D5W plus KCl for nutrition and hydration. Patient has decreased oral intake but having Ensure. Neuroconsult ordered. Triple PCR for SARS-CoV-2, flu and RSV are negative 08/01: IV fluid ordered for nutrition and hydration maintenance. Decreased oral intake. Patient's and her sister stated that they want hospice care. Palliative/hospice care discussion detail with the family. Hospice consult called. 2. Diarrhea/loose bowel movement with positive C. difficile antigen, possible C. difficile colitis: Stool for lactoferrin present. Positive C. difficile A and B antigen but negative toxin. In view of diarrhea and altered mental status decided to start on vancomycin oral. Patient recently had C. difficile and was treated with vancomycin. IV fluid rehydration. 07/31: C. difficile antigen came positive but toxins are negative most likely colonization but patient having diarrhea therefore on oral vancomycin. Need total of 2 weeks for eradication. Urine culture shows GNR 11,000?25,000 colonies, in nonpathologic range and therefore UTI ruled out. Serum magnesium and phosphorus normal. 08/01: Possible GNR cystitis repeat urine culture growing GNR more than 100,000 colonies. Started on IV ceftriaxone. 3. Hypernatremia and hyperchloremia due to hypovolemia resulting in CATHY prerenal: As mentioned above, IV fluid D5W with KCl Patient baseline creatinine normal about 0.9-1. Was admitted with creatinine 1.54 07/31: Serum sodium is better 143 from 146. Creatinine 1.35. Continue IV fluid 08/01: Discontinue any further lab. Continue IV fluid for hydration and nutrition maintenance. Has decreased oral intake. 4. Recent subarachnoid hemorrhage about 2 months ago: DVT anticoagulation is contraindicated. PT and OT ordered. 5. Hypertension: Blood pressure is reasonably controlled, 142/61. 6. Dyslipidemia: Not on statin 6. History of colon cancer: Family in remission. Not an acute issue. DVT prophylaxis: High risk. With recent SAH, pharmacological prophylaxis contraindicated. Bilateral SCDs Living will/advanced directive/end of life care: Patient does have living will or advanced directive. Her in ED as power of corporate attorney for health and financial issues. After discussion of benefits/risks procedures involved with full code, DNR CC arrest and DNR CC, the patient's and son stated that she is DNR CCA with no intubation Patient doesn't want artificial life support including intubation, tube feed, ventilator and/chest compression, central venous catheter, vasopressor and DC shock if needed Microbiology Past 72 Hours 07/30/24 11:50 Urine, Catheterized Urine Culture - Preliminary Gram negative lashonda 07/30/24 13:00 Stool Stool Lactoferrin - Final 07/30/24 13:00 Stool Enteric Bacteriology - Final 07/30/24 13:00 Stool C. difficile GDH Antigen & Toxins - Final 07/30/24 13:00 Stool Clostridioides difficile (PCR) - Final 07/30/24 10:21 Mucosa - Nose SARS-CoV-2, Influenza & RSV (PCR) - Final Laboratory Results 07/30/24 10:20: WBC 15.3 H, RBC 3.56 L, Hgb 9.7 L, Hct 31.4 L, MCV 88.2, MCH 27.2, MCHC 30.9 L, RDW Std Deviation 46.1 H, RDW Coeff of Edgar 14.3, Plt Count 280, MPV 9.3, Immature Gran % (Auto) 1.000 H, Neut % (Auto) 83.6 H, Lymph % (Auto) 6.7 L, [place] % (Auto) 7.7, Eos % (Auto) 0.3, Baso % (Auto) 0.7, Absolute Neuts (auto) 12.8 H, Absolute Lymphs (auto) 1.03, Nucleated RBC % 0, Differential Comment S, Sodium 146 H, Potassium 3.8, Chloride 112 H, Carbon Dioxide 28.0, Anion Gap 6, BUN 46 H, Creatinine 1.54 H, Estim Creat Clear Calc 19.79, Est GFR (MDRD) Af Amer 41 L, Est GFR (MDRD) Non-Af 34 L, BUN/Creatinine Ratio 29.9 H, Glucose 113 H, Calcium 9.0, Total Bilirubin 0.50, AST 12 L, ALT 22, Alkaline Phosphatase 87, Total Protein 7.1, Albumin 2.1 L, Globulin 5.0 H, A lbumin/Globulin Ratio 0.4 L 07/30/24 11:50: Urine RBC 0-5 SEEN, Urine WBC 0-5 SEEN, Ur Squamous Epith Cells 0 SEEN, Urine Bacteria 4+, Urine Mucus 0 SEEN 07/30/24 16:46: Ammonia 26.0, Vitamin B12 > 2000 H, Folate 51.40 07/31/24 06:40: WBC 14.3 H, RBC 3.11 L, Hgb 8.6 L, Hct 27.2 L, MCV 87.5, MCH 27.7, MCHC 31.6 L, RDW Std Deviation 46.1 H, RDW Coeff of Edgar 14.4, Plt Count 224, MPV 8.8, Immature Gran % (Auto) 1.000 H, Neut % (Auto) 79.3 H, Lymph % (Auto) 9.7 L, [place] % (Auto) 8.9, Eos % (Auto) 0.8, Baso % (Auto) 0.3, Absolute Neuts (auto) 11.4 H, Absolute Lymphs (auto) 1.39, Nucleated RBC % 0, Sodium 143, Potassium 4.3, Chloride 113 H, Carbon Dioxide 23.0, Anion Gap 7, BUN 35 H, C reatinine 1.35 H, Estim Creat Clear Calc 22.57, Est GFR (MDRD) Af Amer 48 L, Est GFR (MDRD) Non-Af 40 L, BUN/Creatinine Ratio 25.9 H, Glucose 156 H, Calcium 8.4 L, Phosphorus 2.8, Magnesium 2.2, TSH 1.450 Charges/Coding Visit Charges Inpatient E&M: 42676 Subs Hosp L2
--- NOTE | 2024-08-01 13:22 | CASEMGMT ---
Social Work [facility] notified through [facility] that pt is meeting with [facility] today. DEMETRA Rosas
[2024-08-01 13:42] VITALS: BP 120/54; PULSE 85; RESP 18; TEMP 36.7; O2SAT 96
[2024-08-01] MEDS: 0.9% Saline Lock 10 ML Syringe IV (14:11)
[2024-08-01] MEDS: Ceftriaxone 1 GM/50 ML BAG IV (14:11)
--- NOTE | 2024-08-01 15:31 | CASEMGMT ---
Social Work Pt's and son are meeting with hospice nurse and called SW into the room. Pt family stating that they have decided they do not want hospice services and they want to proceed with pt going to [facility] under skilled level of care. Family inquiring if pt can go to the memory care unit. Phone call with Elba at [facility] and pt does not qualify for the memory care unit. Family updated. Family is agreeable to discharge to [facility] skilled level of care with no hospice on Saturday as planned. Physician and RN notified. Plan: [facility], skilled level of care on Saturday if medically ready DEMETRA Rosas
[2024-08-01] MEDS: KCl 20MEQ in D5NS 20 MEQ/1,000 ML IV.SOLN. 75 MEQ IV (15:40)
[2024-08-01 17:29] VITALS: BP 122/65; PULSE 90; RESP 18; TEMP 37.2; O2SAT 95
[2024-08-01] MEDS: Carvedilol 3.125 MG TABLET PO (17:32)
[2024-08-02] MEDS: Vancomycin 125 MG/5 ML Susp PO.SYRINGE PO ×3 (00:40→11:43)
[2024-08-02] MEDS: Menthol/Lanolin/Calamine/Znox 113 GM Tube 1 APPLIC TOPICAL ×2 (00:40→04:42)
[2024-08-02] MEDS: Acetaminophen 325 MG Tablet 650 MG PO (00:40)
[2024-08-02] MEDS: Lactobacillis Acidophilus 1 CAP PO ×2 (00:40→08:00)
[2024-08-02 00:46] VITALS: BP 125/62; PULSE 75; RESP 18; TEMP 36.6; O2SAT 96
[2024-08-02 04:29] VITALS: BP 151/76; PULSE 70; RESP 16; TEMP 36.4; O2SAT 95
[2024-08-02 07:56] VITALS: BP 175/83; PULSE 73; RESP 18; TEMP 36.1; O2SAT 93
[2024-08-02] MEDS: Folic Acid 1 MG Tablet PO (08:00)
[2024-08-02] MEDS: Carvedilol 3.125 MG TABLET PO ×2 (08:00→11:40)
[2024-08-02] MEDS: Cyanocobalamin 500 MCG Tablet 1000 MCG PO (08:00)
[2024-08-02] MEDS: MethylPREDNISolone 125 MG/2 ML Vial 60 MG IV (08:57)
[2024-08-02 09:40] VITALS: O2SAT 94
[2024-08-02] MEDS: Meropenem 500 MG in 0.9% Normal Saline (50mL MB+) 50 ML 100 MG IV (10:23)
--- NOTE | 2024-08-02 10:52 | TREXTCAR_ITS ---
Diet Diet Order/Speech Therapy: 07/30/24 15:42 Diet: Regular - General Type of Dietary Supplement:: Ensure Plus High Protein Diet Comments: 240mL EPHP TID-strawberry, send ice cream & pudding per family Routine Orders/Code Status Suppository Type: Dulcolax 10mg Suppository Frequency: Daily PRN DC O2, CPAP, BIPAP needs Home O2 Discharge instructions: No Wound(s) buttock: Wound Type: Pressure Injury Therapies Extremity Affected:: Bilateral Lower Physical Therapy: Eval and Treat Occupational Therapy: Eval and Treat Speech Therapy: Eval and Treat Problem/Diagnosis (1) Agitation due to dementia: Status: Acute Code(s): F03.911 - Unspecified dementia, unspecified severity, with agitation Plan This is a 88-year-old female is being admitted for altered mental status on baseline dementia and recent history of SAH 1. Altered mental status/acute encephalopathy on baseline dementia: Patient is being admitted on MedSur floor. Probably metabolic encephalopathy with hypernatremia therefore started on IV fluid D5W with KCl. Monitor intake and output. TSH, ammonia and B12 and folate ordered. 2: Possible metabolic encephalopathy from dehydration: Continue IV fluid D5W plus KCl for nutrition and hydration. Patient has decreased oral intake but having Ensure. Neuroconsult ordered. Triple PCR for SARS-CoV-2, flu and RSV are negative 08/01: IV fluid ordered for nutrition and hydration maintenance. Decreased oral intake. Patient's and her sister stated that they want hospice care. Palliative/hospice care discussion detail with the family. Hospice consult called. 2. Diarrhea/loose bowel movement with positive C. difficile antigen, possible C. difficile colitis: Stool for lactoferrin present. Positive C. difficile A and B antigen but negative toxin. In view of diarrhea and altered mental status decided to start on vancomycin oral. Patient recently had C. difficile and was treated with vancomycin. IV fluid rehydration. 07/31: C. difficile antigen came positive but toxins are negative most likely colonization but patient having diarrhea therefore on oral vancomycin. Need total of 2 weeks for eradication. Urine culture shows GNR 11,000?25,000 colonies, in nonpathologic range and therefore UTI ruled out. Serum magnesium and phosphorus normal. 08/01: Possible GNR cystitis repeat urine culture growing GNR more than 100,000 colonies. Started on IV ceftriaxone. 3. Hypernatremia and hyperchloremia due to hypovolemia resulting in CATHY prerenal: As mentioned above, IV fluid D5W with KCl Patient baseline creatinine normal about 0.9-1. Was admitted with creatinine 1.54 07/31: Serum sodium is better 143 from 146. Creatinine 1.35. Continue IV fluid 08/01: Discontinue any further lab. Continue IV fluid for hydration and nutrition maintenance. Has decreased oral intake. 4. Recent subarachnoid hemorrhage about 2 months ago: DVT anticoagulation is contraindicated. PT and OT ordered. 5. Hypertension: Blood pressure is reasonably controlled, 142/61. 6. Dyslipidemia: Not on statin 6. History of colon cancer: Family in remission. Not an acute issue. DVT prophylaxis: High risk. With recent SAH, pharmacological prophylaxis contraindicated. Bilateral SCDs Living will/advanced directive/end of life care: Patient does have living will or advanced directive. Her in ED as power of oil burner for health and financial issues. After discussion of benefits/risks procedures involved with full code, DNR CC arrest and DNR CC, the patient's and son stated that she is DNR CCA with no intubation Patient doesn't want artificial life support including intubation, tube feed, ventilator and/chest compression, central venous catheter, vasopressor and DC shock if needed Microbiology Past 72 Hours 07/30/24 11:50 Urine, Catheterized Urine Culture - Preliminary Gram negative lashonda 07/30/24 13:00 Stool Stool Lactoferrin - Final 07/30/24 13:00 Stool Enteric Bacteriology - Final 07/30/24 13:00 Stool C. difficile GDH Antigen & Toxins - Final 07/30/24 13:00 Stool Clostridioides difficile (PCR) - Final 07/30/24 10:21 Mucosa - Nose SARS-CoV-2, Influenza & RSV (PCR) - Final Laboratory Results 07/30/24 10:20: WBC 15.3 H, RBC 3.56 L, Hgb 9.7 L, Hct 31.4 L, MCV 88.2, MCH 27.2, MCHC 30.9 L, RDW Std Deviation 46.1 H, RDW Coeff of Edgar 14.3, Plt Count 280, MPV 9.3, Immature Gran % (Auto) 1.000 H, Neut % (Auto) 83.6 H, Lymph % (Auto) 6.7 L, [place] % (Auto) 7.7, Eos % (Auto) 0.3, Baso % (Auto) 0.7, Absolute Neuts (auto) 12.8 H, Absolute Lymphs (auto) 1.03, Nucleated RBC % 0, Differential Comment S, Sodium 146 H, Potassium 3.8, Chloride 112 H, Carbon Dioxide 28.0, Anion Gap 6, BUN 46 H, Creatinine 1.54 H, Estim Creat Clear Calc 19.79, Est GFR (MDRD) Af Amer 41 L, Est GFR (MDRD) Non-Af 34 L, BUN/Creatinine Ratio 29.9 H, Glucose 113 H, Calcium 9.0, Total Bilirubin 0.50, AST 12 L, ALT 22, Alkaline Phosphatase 87, Total Protein 7.1, Albumin 2.1 L, Globulin 5.0 H, Albumin/Globulin Ratio 0.4 L 07/30/24 11:50: Urine RBC 0-5 SEEN, Urine WBC 0-5 SEEN, Ur Squamous Epith Cells 0 SEEN, Urine Bacteria 4+, Urine Mucus 0 SEEN 07/30/24 16:46: Ammonia 26.0, Vitamin B12 > 2000 H, Folate 51.40 07/31/24 06:40: WBC 14.3 H, RBC 3.11 L, Hgb 8.6 L, Hct 27.2 L, MCV 87.5, MCH 27.7, MCHC 31.6 L, RDW Std Deviation 46.1 H, RDW Coeff of Edgar 14.4, Plt Count 224, MPV 8.8, Immature Gran % (Auto) 1.000 H, Neut % (Auto) 79.3 H, Lymph % (Auto) 9.7 L, [place] % (Auto) 8.9, Eos % (Auto) 0.8, Baso % (Auto) 0.3, Absolute Neuts (auto) 11.4 H, Absolute Lymphs (auto) 1.39, Nucleated RBC % 0, Sodium 143, Potassium 4.3, Chloride 113 H, Carbon Dioxide 23.0, Anion Gap 7, BUN 35 H, Creatinine 1.35 H, Estim Creat Clear Calc 22.57, Est GFR (MDRD) Af Amer 48 L, Est GFR (MDRD) Non-Af 40 L, BUN/Creatinine Ratio 25.9 H, Glucose 156 H, Calcium 8.4 L, Phosphorus 2.8, Magnesium 2.2, TSH 1.450 Allergies/Procedures Done in Hospital Allergies erythromycin base Allergy (Mild, Verified 07/30/24 09:55) rash piperacillin (From Zosyn) Allergy (Verified 07/30/24 09:55) Rash tazobactam (From Zosyn) Allergy (Verified 07/30/24 09:55) Rash Type of Care/Length of Stay Estimated LOS: Convalescent Care Less Than 30 days Type of Care Needed: Skilled Rehab Potential: Good Prognosis: Good Additional Orders/Day of Discharge Day of Discharge: 08/02/24 Dietary and Speech Recommendations Dietitian Recommendations/Changes: Continue regular diet. Will order 240ml ensure plus high protein TID with meals. PO needs to be established. Will monitor weight as available. Discharge Plan Admission Admit Date/Time: 07/30/24 12:39 Primary Reason for Your Visit: dehydration/AMS Attending Provider: Manny Torrez Primary Care Provider: Juan David Martin Consulting Providers: Hayden Mullen; Jewel Dee; Justine Fraga; Francine Govea; Suzanne Dowling; Vikram Milan; Chata Benitez; Chacorta Terrazas; Ishmael Hu; Omega Mary; Flakita Fong; Sudhakar Melendez; Samanta Hobbs; Doug Prado; Nathalie Lay; Akin Calabrese; Rosa Elena Porras; Kyaw Jorge; Stacie Schumacher; Melissa Sapp Discharge Orders/Prescriptions Prescriptions: New vancomycin [Firvanq] 25 mg/mL Recon Soln 125 mg PO Q6 11 Days Qty: 220 0RF L.acidoph,saliva-B.bif-S.therm 175 mg Capsule 1 cap PO BID Qty: 0 0RF Rx Instructions: For a 1 month cefdinir 300 mg capsule 300 mg PO BID 2 Days Qty: 4 0RF Continued carvedilol 6.25 mg tablet 6.25 mg PO BID folic acid 1 mg tablet 1,000 mcg PO DAILY Patient Comments: UNSURE OF STRENGTH. FAMILY STATES OTC. mecobalamin (vitamin B12) 1,000 mcg lozenge 1,000 mcg PO DAILY Patient Comments: UNSURE OF STRENGTH. FAMILY STATES OTC. Rx Instructions: allow to dissolve in mouth OR may chew lightly before swallowing hydralazine 50 mg Tablet 50 mg PO TID Held losartan 100 mg Tablet 100 mg PO DAILY Qty: 0 0RF Hold Instructions: Hold for 3 days and start lower dose 25 g daily after repeat BMP Referrals / Follow Up: Juan David Martin MD [Primary Care Provider] - Within 2 Weeks Davi Webb MD [Med Staff - Active Staff] - Within 1 Month Disposition Disposition (needs filled in before D/C Order can be placed): Group Home Facility
--- NOTE | 2024-08-02 11:00 | PCM.DC.SUM ---
Providers Date of Admission: 07/30/24 Date of Discharge: 08/02/24 Primary Care Physician: Juan David Martin MD Consultations 07/31/24 10:41 Consult: Tele-Neurology Routine Consulting Provider: [facility] Reason for Consult: AMS, SAH/STROKE about 3 months ago EMERGENT Consult: No MD Notified: Yes Date Notified: 07/31/24 Time Notified: 10:41 Method of Notification: ED Physician Initiated Nursing Unit Staff Notify [facility] of Tele-Neurology Consult: Yes Reason For Visit: FAILURE TO THRIVE Diagnosis Discharge Diagnosis (1) Agitation due to dementia: Status: Acute Code(s): F03.911 - Unspecified dementia, unspecified severity, with agitation Plan This is a 88-year-old female is being admitted for altered mental status on baseline dementia and recent history of SAH 1. Altered mental status/acute encephalopathy on baseline dementia: Patient is being admitted on MedSurg floor. Probably metabolic encephalopathy with hypernatremia therefore started on IV fluid D5W with KCl. Monitor intake and output. TSH, ammonia and B12 and folate ordered. 2: Possible metabolic encephalopathy from dehydration: Continue IV fluid D5W plus KCl for nutrition and hydration. Patient has decreased oral intake but having Ensure. Neuroconsult ordered. Triple PCR for SARS-CoV-2, flu and RSV are negative 08/01: IV fluid ordered for nutrition and hydration maintenance. Decreased oral intake. Patient's and her sister stated that they want hospice care. Palliative/hospice care discussion detail with the family. Hospice consult called. 08/02: Later on yesterday patient's power of business attorney for healthcare assessment changed her mind and does not want hospice consult. Still wants DNR CC and DNR CC paper was signed. Acute encephalopathy got better with IV fluid and nutrition. She is on her baseline dementia. Acute encephalopathy resolved 2. Diarrhea/loose bowel movement with positive C. difficile antigen, possible C. difficile colitis: Stool for lactoferrin present. Positive C. difficile A and B antigen but negative toxin. In view of diarrhea and altered mental status decided to start on vancomycin oral. Patient recently had C. difficile and was treated with vancomycin. IV fluid rehydration. 07/31: C. difficile antigen came positive but toxins are negative most likely colonization but patient having diarrhea therefore on oral vancomycin. Need total of 2 weeks for eradication. Urine culture shows GNR 11,000?25,000 colonies, in nonpathologic range and therefore UTI ruled out. Serum magnesium and phosphorus normal. 08/01: Possible GNR cystitis repeat urine culture growing GNR more than 100,000 colonies. Started on IV ceftriaxone. 08/02: It seems patient has asymptomatic bacteriuria. Discussed with ID Dr. Webb. Repeat culture shows E. coli ESBL more than thousand colonies but patient does not have any new symptoms. UA WBC 0-5, LE 25, nitrite negative therefore decided 2 more days of cefdinir as per his recommendation. 11 days of oral vancomycin ordered to complete total 2 weeks of oral vancomycin for eradication. 3. Hypernatremia and hyperchloremia due to hypovolemia resulting in CATHY prerenal: As mentioned above, IV fluid D5W with KCl Patient baseline creatinine normal about 0.9-1. Was admitted with creatinine 1.54 07/31: Serum sodium is better 143 from 146. Creatinine 1.35. Continue IV fluid 08/01: Discontinue any further lab. Continue IV fluid for hydration and nutrition maintenance. Has decreased oral intake. 08/02: 4. Recent subarachnoid hemorrhage about 2 months ago: DVT anticoagulation is contraindicated. PT and OT ordered. 5. Hypertension: Blood pressure is reasonably controlled, 142/61. 6. Dyslipidemia: Not on statin 6. History of colon cancer: Family in remission. Not an acute issue. DVT prophylaxis: High risk. With recent SAH, pharmacological prophylaxis contraindicated. Bilateral SCDs Living will/advanced directive/end of life care: Patient does have living will or advanced directive. Her in ED as power of business attorney for health and financial issues. After discussion of benefits/risks procedures involved with full code, DNR CC arrest and DNR CC, the patient's and son stated that she is DNR CCA with no intubation Patient doesn't want artificial life support including intubation, tube feed, ventilator and/chest compression, central venous catheter, vasopressor and DC shock if needed Discharge medication reconciliation done. Discharge follow-up instructions completed. Discharge process discussed with the patient and all questions were answered to patient's satisfaction. Follow with PCP in 1 to 2 weeks Total time spent, exact 35 minutes on discharge meds reconciliation, examination, coordination of care with nurses and ancillary staff, review of imaging and blood test and discussion with the patient on follow-up instructions. Microbiology Past 72 Hours 07/31/24 18:00 Urine, Clean Catch Urine Culture - Final ESBL Escherichia coli 07/30/24 11:50 Urine, Catheterized Urine Culture - Final Escherichia coli 07/30/24 13:00 Stool Stool Lactoferrin - Final 07/30/24 13:00 Stool Enteric Bacteriology - Final 07/30/24 13:00 Stool C. difficile GDH Antigen & Toxins - Final 07/30/24 13:00 Stool Clostridioides difficile (PCR) - Final 07/30/24 10:21 Mucosa - Nose SARS-CoV-2, Influenza & RSV (PCR) - Final Medications at Discharge Home Medications losartan 100 mg tablet 100 mg PO DAILY #0 tabs 06/15/24 Held on 08/02/24. Instructions: Hold for 3 days and start lower dose 25 g daily after repeat BMP carvedilol 6.25 mg tablet 6.25 mg PO BID 07/30/24 folic acid 1 mg tablet 1,000 mcg PO DAILY 07/30/24 hydralazine 50 mg tablet 50 mg PO TID 07/30/24 mecobalamin (vitamin B12) 1,000 mcg lozenges 1,000 mcg PO DAILY 07/30/24 L.acidophil,salivari-Bifido bifidum-Strep thermoph 175 mg capsule 1 cap PO BID #0 caps 08/02/24 cefdinir 300 mg capsule 300 mg PO BID 2 days #4 caps 08/02/24 vancomycin 25 mg/mL oral solution (Firvanq) 125 mg (5 mL) PO Q6 11 days #220 mL 08/02/24 Physical Exam Narrative Seen and examined. She is awake eyes open. She follows simple command. She is still having loose bowel movement. Discussed with the patient's daughter near the bedside. Patient had C. difficile antigen positive about 1 month ago and she had about 10 days of oral vancomycin. No fever. Cannot tell her , age, month and the year. Physical exam General: Awake. Oriented to time and place. Chronic forgetfulness HEENT: Atraumatic, PERRLA, EOMI, Normocephalic Oral: Oral mucosa very dry. No Gingival or Mucosal Lesions/ Ulcerations Neck: Supple, No JVD, Negative Carotid Bruits Chest wall/Lungs: Air entry diminished in bilateral lung bases. No crepitation/rhonchi Cardiovascular: Irregular rhythm, Normal S1, Normal S2, systolic murmur Abdomen: Bowel Sounds Present, Soft, Non Tender, Non-Distended : No dysuria. No renal angle tenderness. No suprapubic tenderness. Extremities: No edema, Capillary Refill Less than 3 Seconds Skin: No rashes, No breakdown Musculoskeletal: No Tenderness to Palpation of Joints or Extremities. Does not follow commands to check motor exam Neurological: detailed neuroexam unobtainable. Chronic dementia Psych/Mental Status: Looks more attentive. Dementia Weight / BMI Weight Weight: 113 lb 15.664 oz Body Mass Index (BMI) 21.5 ABG / Lab / Microbiology Data 07/31/24 06:40 07/31/24 06:40 Microbiology: Microbiology 07/31/24 18:00 Urine, Clean Catch Urine Culture - Final ESBL Escherichia coli 07/30/24 11:50 Urine, Catheterized Urine Culture - Final Escherichia coli 07/30/24 13:00 Stool Stool Lactoferrin - Final 07/30/24 13:00 Stool Enteric Bacteriology - Final 07/30/24 13:00 Stool C. difficile GDH Antigen & Toxins - Final 07/30/24 13:00 Stool Clostridioides difficile (PCR) - Final 07/30/24 10:21 Mucosa - Nose SARS-CoV-2, Influenza & RSV (PCR) - Final D/C Instructions DC O2, CPAP, BIPAP Needs Home O2 Discharge instructions: No Meaningful Use Info Meaningful Use Meaningful Use Diagnoses (Choose all that apply): None applicable Ischemic Stroke Statin Dosing Therapy Reference: STATIN DOSE THERAPY REFERENCE: * Patients > 75 years receive moderate or high dose statin therapy. * Patients 75 years or YOUNGER should receive HIGH intensity statin dose unless contraindicated. You will be required to document reason for non-treatment if statin daily dose does not meet guidelines. HIGH DOSE STATIN THERAPY DAILY Atorvastatin > than or = to 40 mg Rosuvastatin > than or = to 20 mg Amlodipine + Atorvastatin > than or = to 2.5/40 mg Ezetimibe + Simvastatin 10/80 mg Simvastatin 80mg Discharge Plan Admission Admit Date/Time: 07/30/24 12:39 Primary Reason for Your Visit: dehydration/AMS Attending Provider: Manny Torrez Primary Care Provider: Juan David Martin Consulting Providers: Hayden Mullen; Jewel Dee; Justine Fraga; Francine Govea; Suzanne Dowling; Vikram Milan; Chata Benitez; Chacorta Terrazas; Ishmael Hu; Omega Mary; Flakita Fong; Sudhakar Melendez; Samanta Hobbs; Doug Prado; Nathalie Lay; Akin Calabrese; Rosa Elena Porras; Kyaw Jorge; Stacie Schumacher; Melissa Sapp Discharge Orders/Prescriptions Prescriptions: New vancomycin [Firvanq] 25 mg/mL Recon Soln 125 mg PO Q6 11 Days Qty: 220 0RF L.acidoph,saliva-B.bif-S.therm 175 mg Capsule 1 cap PO BID Qty: 0 0RF Rx Instructions: For a 1 month cefdinir 300 mg capsule 300 mg PO BID 2 Days Qty: 4 0RF Continued carvedilol 6.25 mg tablet 6.25 mg PO BID folic acid 1 mg tablet 1,000 mcg PO DAILY Patient Comments: UNSURE OF STRENGTH. FAMILY STATES OTC. mecobalamin (vitamin B12) 1,000 mcg lozenge 1,000 mcg PO DAILY Patient Comments: UNSURE OF STRENGTH. FAMILY STATES OTC. Rx Instructions: allow to dissolve in mouth OR may chew lightly before swallowing hydralazine 50 mg Tablet 50 mg PO TID Held losartan 100 mg Tablet 100 mg PO DAILY Qty: 0 0RF Hold Instructions: Hold for 3 days and start lower dose 25 g daily after repeat BMP Referrals / Follow Up: Juan David Martin MD [Primary Care Provider] - Within 2 Weeks Davi Webb MD [Med Staff - Active Staff] - Within 1 Month Disposition Disposition (needs filled in before D/C Order can be placed): Detention Facility Charges/Coding Addendum Addendum: CBC BMP in 3 days for Visit Charges Inpatient E&M: 01892 Disch Hosp >30min
[2024-08-02 11:44] VITALS: BP 150/71; PULSE 62
--- NOTE | 2024-08-02 12:00 | NURSING ---
Nurse to nurse report given to Anderson @ [facility]. Advised that transfer time is set for 1230.
--- NOTE | 2024-08-03 10:35 | CASEMGMT ---
Social Work- SW received a call from [facility] regarding pt d/c plans. ALLEN updated that pt d/c to [facility]. DEMETRA Wayne
--- NOTE | 2024-08-13 10:45 | CASEMGMT ---
Social Work- ALLEN received a call from pt son, Sadiq, asking how to re-initiate hospice consult for pt. Sadiq reports that they had a meeting over the weekend and they were not interested, however, mom has declined this week and pt family would like to see if the referral is still open. Sadiq reports that he is driving to the facility now after receiving a call from staff that pt may be imminent. Sadiq reports that he does not have hospice number and cannot write down a number, as he is driving. ALLEN educated that [facility] would need to work on establishing hospice for pt, but offered to reach out to the facility and hospice, as pt son feels it is time- sensitive. SW called hospice to see if a new referral was needed and let them know services were desired, but son did not have their phone number and is driving. Hospice reports that they will call son and facility. SW called [facility] and advised of the situation. Facility reports they will work with hospice. DEMETRA Wayne
== END 2024-08-02 12:55 | disposition skilled nursing facility (03) | DRG 884 ==
LOC: ED 13:43 → MS3 14:08
PROVIDERS: Admitting Provider Internal Medicine; Emergency Provider Emergency Medicine; PCP Family Medicine; Visit Provider Internal Medicine
DX: F03.911 Unspecified dementia, unspecified severity, with agitation (principal); G93.41 Metabolic encephalopathy; A04.72 Enterocolitis due to Clostridium difficile, not specified as recurrent; E87.0 Hyperosmolality and hypernatremia; I69.351 Hemiplegia and hemiparesis following cerebral infarction affecting right dominant side; N17.9 Acute kidney failure, unspecified; Z66 Do not resuscitate; E86.0 Dehydration; I10 Essential (primary) hypertension; F02.80 Dementia in other diseases classified elsewhere, unspecified severity, without behavioral disturbance, psychotic disturbance, mood disturbance, and anxiety; E78.5 Hyperlipidemia, unspecified; E86.1 Hypovolemia; E87.8 Other disorders of electrolyte and fluid balance, not elsewhere classified; R82.71 Bacteriuria; Z85.038 Personal history of other malignant neoplasm of large intestine; Z79.899 Other long term (current) drug therapy; Z90.49 Acquired absence of other specified parts of digestive tract; B96.20 Unspecified Escherichia coli [E. coli] as the cause of diseases classified elsewhere
CPT/HCPCS: 36415; 70450; 71045; 80048; 80053; 81001; 82140; 82607; 82746; 83630; 83735; 84100; 84443; 85025; 87077; 87086; 87088; 87186; 87493; 87506; 87631; 92526; 92610; 93005; 94668; 97116; 97163; 97167; 97530; 97535; 99285; J2185; A4216